=== PATIENT | male | born 1950 | race Caucasian/White ===

== ENCOUNTER 2021-08-19 17:17 | Inpatient (IN) | payer MEDICARE, MEDICAID, SELFPAY ==
[2021-08-19 17:31] VITALS: BP 113/75; PULSE 86; RESP 18; TEMP 36.1; O2SAT 96
[2021-08-19 20:20] VITALS: BP 122/77; PULSE 80; RESP 18; TEMP 36.1; O2SAT 94
[2021-08-19] MEDS: Fluticasone/Salmeterol 232-14 Inhaler 1 PUFF INHALATION (20:44)
[2021-08-19] MEDS: Insulin Glargine-YFGN 100 UNIT/ML Pen 10 UNIT SC (20:45)
[2021-08-19 20:46] VITALS: BP 122/77; PULSE 80
[2021-08-19] MEDS: Metoprolol Tartrate 50 MG Tablet PO (20:46)
[2021-08-19] MEDS: Atorvastatin Calcium 80 MG Tablet PO (20:46)
[2021-08-19] MEDS: buPROPion (SR) 150 MG Tablet.SA PO (20:47)
[2021-08-19 20:56] LABS: Bedside Glucose 140 mg/dL (74-106)
[2021-08-19 23:23] LABS: Mucous, Urine 0 SEEN /hpf (<or=2+); Squamous Epithelial Cells - UA 0 SEEN /hpf (0-5)
[2021-08-20] VITALS (9 sets, daily range): BP systolic 86–132; BP diastolic 50–83; PULSE 64–86; RESP 16–18; TEMP 36.4–36.7; O2SAT 95–98
[2021-08-20 00:08] LABS: Color, Urine Red (Yellow); Glucose, Dipstick 50 mg/dl (Normal); Ketone-Dipstick Negative (Negative); Leukocyte Esterase-Dipstick 100 /ul (Negative); Nitrite-Dipstick Negative (Negative); Occult Blood-Urine 250 /ul (Negative); Protein-Dipstick 500 mg/dl (Negative); Urine Bilirubin Dipstick Negative (Negative); Urine Clarity Turbid (Clear); Urine Urobilinogen Normal (Normal)
[2021-08-20 00:39] LABS: Bacteria 1+ /hpf (None Seen); Hyaline Cast 0-5 SEEN /lpf (0-5); Red Blood Cells-Urine > 100 SEEN /hpf (0-5); White Blood Cells 5-10 SEEN /hpf (0-5)
--- NOTE | 2021-08-20 01:15 | NURSING ---
Herad a noise, pt found on the floor. Pt said he didnt know why. ASked if he was reaching for the water at bedside. Pt said yes. Asked if he hit his head he said yes. no injury noted. Pt bed low with 2 side rails up. Pt took off his pa alarm. PT with no physical injuries noted but did have a loose bm in his diaper. vital sign pulse 64. pulse ox 96 on ra. resp 18. bp 132/83. Pt lifted up with asst of 2. bath given. dr yomi oglesby
[2021-08-20] MEDS: Menthol/Lanolin/Calamine/Znox 113 GM Tube 1 APPLIC TOPICAL ×3 (01:31→20:51)
--- NOTE | 2021-08-20 01:44 | CT_ITS ---
EXAM: CT HEAD WITHOUT INTRAVENOUS CONTRAST CLINICAL INDICATION: Fall on antiplt therapy TECHNIQUE: Multiple axial images were obtained of the head without intravenous contrast. This CT exam was performed using one or more of the following dose reduction techniques: automated exposure control, adjustment of the mA and/or kV according to patient size, and/or use of iterative reconstruction technique. This report was created using [employer] report generation technology. RADIATION DOSE: CTDIvol = 44.99 mGy, DLP = 846.73 mGy-cm. COMPARISON: None. FINDINGS: BRAIN AND EXTRA-AXIAL SPACES: Moderate generalized atrophy. Moderate low density bilaterally in the deep white matter. Subacute infarct left parietal lobe. There is high density within the sulci in this region that likely represents petechial hemorrhage along the cortex and not subarachnoid hemorrhage. No intracranial mass or mass effect. Posterior fossa structures are unremarkable. No hydrocephalus. Basal cisterns are patent. BONES/JOINTS: Unremarkable. No discrete lytic or blastic abnormalities. SINUSES: Unremarkable as visualized. Clear. MASTOID AIR CELLS: Unremarkable. Clear. ORBITS: Visualized globes, extraocular muscles, optic nerves and retrobulbar fat appear unremarkable. CT/Brain/Head without Contrast IMPRESSION: 1. Subacute infarct left parietal cortex with some petechial hemorrhage within the cortex but no extra-axial hemorrhage. 2. Moderate generalized atrophy. Moderate low density bilaterally in the deep white matter. This likely represents small vessel ischemic changes in the deep white matter. 3. No specific acute intracranial abnormality. Electronically Signed: Rj Abdul MD at 2:54 EDT ,
--- NOTE | 2021-08-20 01:45 | PCM.HOSP.N ---
Hospitalist Note Patient with unwitnessed mechanical fall, off the of toilet with reported hit to the head but no LOC and patient notes he feels well otherwise but given recent admission with CVA on asa, plavix with unwitnessed head trauma will obtain CT head without contrast now.
--- NOTE | 2021-08-20 01:50 | NURSING ---
process supervisor janell notified
--- NOTE | 2021-08-20 02:10 | NURSING ---
Pt back from [facility], [facility]. Pt changed to a bed with 4 side rails but we only put 3 side rails up. Pa on again. Red fall sign put up
--- NOTE | 2021-08-20 07:03 | NURSING ---
zaynab notified of pt falling
--- NOTE | 2021-08-20 09:00 | NURSING ---
Patient very pleasant, at times follows commands but needs max cues for everything. Loera in place, incontinent of stool and he does not recognize when he has a bowel movement. x2 max assist stand pivot, right side severe weakness noted.
[2021-08-20] MEDS: Fluticasone/Salmeterol 232-14 Inhaler 1 PUFF INHALATION ×2 (09:59→20:57)
[2021-08-20] MEDS: Furosemide 40 MG Tablet PO (10:00)
[2021-08-20] MEDS: Aspirin E.C. 81 MG Tablet PO (10:00)
[2021-08-20] MEDS: Metoprolol Tartrate 50 MG Tablet PO ×2 (10:01→20:57)
[2021-08-20] MEDS: buPROPion (SR) 150 MG Tablet.SA PO (10:01)
[2021-08-20] MEDS: Clopidogrel Bisulfate 75 MG Tablet PO (10:01)
[2021-08-20] MEDS: Lisinopril 5 MG Tablet PO (10:01)
[2021-08-20] MEDS: Pantoprazole Sodium 20 MG Tablet PO (10:01)
[2021-08-20] MEDS: Gabapentin 300 MG Capsule PO (10:06)
[2021-08-20] MEDS: Umeclidinium Bromide Inhaler 1 PUFF INHALATION (10:07)
--- NOTE | 2021-08-20 10:23 | CASEMGMT ---
Social Work Pt unable to complete initial assessment or BIMS. Left message with . Janey Mejia, JAVA J2EE SOFTWARE ENGINEER STRIPPING MACHINE OPERATOR
[2021-08-20 10:33] LABS: Absolute Lymphocyte Count 1.77 X10^3/uL (0.83-4.51); Absolute Neutrophil Count 10.6 X10^3/uL (2.0-7.7); Basophil# 0.03 X10^3/uL; Basophil% 0.2 % (0-1); Eosinophil# 0.28 X10^3/uL; Hematocrit 48.4 % (40-54); Hemoglobin 15.5 g/dL (13.0-16.5); Lymphocyte # 1.77 X10^3/ul (0.83-4.51); Lymphocyte % 12.7 % (19-41); Mean Corpuscular Hgb 28.5 pg (27.0-32.0); Mean Corpuscular Volume 89.1 fL (80-94); Mean Platelet Vol. 12.3 fl (6.2-12.0); Monocyte# 1.19 X10^3/uL; Monocyte% 8.6 % (0-10); NRBC Flagged by Analyzer 0 % (0-5); Neutrophil # 10.56 X10^3/uL (2.7-7.7); Platelet Count 198 K/mm3 (150-450); RBC Distribution Width CV 14.6 % (11.6-14.6); RBC Distribution Width SD 47.5 fl (35.1-43.9); Red Blood Count 5.43 M/mm3 (4.6-6.2); White Blood Count 13.9 K/mm3 (4.4-11.0)
[2021-08-20 11:06] LABS: Bedside Glucose 182 mg/dL (74-106)
[2021-08-20 11:58] LABS: ALB/GLOB Ratio 0.4 RATIO (0.9-2.4); AST(SGOT) 30 U/L (15-37); Alanine Aminotransfer ALT/SGPT 35 U/L (16-61); Albumin, Serum 2.2 g/dL (3.2-5.0); Alkaline Phosphatase 117 U/L (45-117); Anion Gap 5 (5-15); BUN 30 mg/dL (7-18); BUN/Creat Ratio 22.6 RATIO (10-20); Calcium,Total 8.6 mg/dL (8.5-10.1); Chloride 99 mmol/L (98-107); Creatinine, Serum 1.33 mg/dL (0.70-1.30); EST Glomerular Filtration Rate 56 mL/min (>60); Est Glom Filt Rate - Afr Amer 68 mL/min (>60); Estimated Creatinine Clearance 50.01 ml/min; Globulin 5.1 g/dL (2.2-4.2); Glucose 197 mg/dL (74-106); Phosphorus 2.2 mg/dL (2.5-4.9); Potassium 3.9 mmol/L (3.5-5.1); Protein, Total 7.3 g/dL (6.4-8.2); Sodium Level 132 mmol/L (136-145)
--- NOTE | 2021-08-20 12:09 | EX.PCM.HP.RE ---
[facility] - General General Date of Admission: 08/19/21 HPI Narrative SUDHIR BELL, is a 70 YO M with a PMH of CAD, remote HI, hx of CABG/PCI with multiple stents, tobacco dependence, HTN, HLD, DM II, COPD and Depression who had sudden onset of R side weakness and slurred speech on 08/09/21 while walking in a parking lot. He was taken to [facility] ED and at arrival was noted to be in AF with a BP of 170/109. A noncontrast CT brain revealed no acute findings. CTA findings were consistent with a left M2 branch occlusion. TPA was administered and the patient was transferred to [facility] for mechanical thrombectomy/TNK. Following TPA and thrombectomy he had residual R side weakness and expressive aphasia. CT post TPA and TNK showed petechial hemorrhage in the area of the stroke. His admission to [facility] was complicated by a E. Coli UTI and he reportedly received a full course of antibiotics. Other complications included ARF (seen by Dr. Summers/creat peaked at 2.43), urine retention, pulmonary edema and newly diagnosed CM with an EF of 34%. On ECHO he also has severe posterior wall hypokinesis and mild LAE. NO PFO. 1-2+ MR. While at [facility] he was seen by PT/OT/ST and a recommendation was made for acute rehab. He was transferred to [facility] acute rehab on 08/19/21 for 3 hours of therapy daily to restore function/independence at or near his level prior to recent stroke. NIH at [place] for [facility] was 10. He can start anticoagulation for AF 2-3 weeks from the date of the stroke which would be somewhere between the 9th and the 16th.......if the CT scan is stable. TC 100 HDL 33 LDL 52 HGBA1C 7.4 I spoke with his who tells me that he has been losing wt and she also told me that they found something in his neck on XRAY that they want him to follow up on? [place] and there are 2 small steps to get into the house with no HR's. They have a Tub/shower and no grab bars. There is a basement and there son is currently staying in the basement. He smokes 2 PPD of cigarettes and has been trying to quit by smoking 1/2 of a cigarette and then putting it down. He does not drink. He sees a cro at [facility] and she does not know the name. He sees a SPICE FUMIGATOR at the health dept for primary care. All lab from today was personally reviewed. White blood cell count is elevated at 13.9. Hemoglobin is 15.5 and the MCV and MCH are within normal limits. Platelets are normal. Sodium is low at 132 and the potassium is 3.9. The BUN is 30 and the creatinine is 1.33 (it was 1.39 at [facility] ED) which is above the creat (1.05 when he entered [facility] on 08/09/21). Phosphorus is low at 2.2. EKG had a prolonged QTC in the ED. All records from [facility] ED were reviewed as were the records from [facility]. On the CTA from ED there was mention of a R parotid nodule measuring 1.3 cm. There were also BL pleural effusions and there was also mild mediastinal and R neck base adenopathy. told the ER doc that Sudhir had been SOB when lying down for the preceding 2 weeks and sometimes had to get up from bed. He had no swelling of his legs in the ED but, CXR was consistent with pulmonary edema. He has received COVID vaccine and had 1 booster. [facility] Medical History (Updated 08/20/21 @ 15:[address] Melissa Mcarthur DO) Atrial fibrillation Deafness in left ear Deafness in right ear Diabetes GERD (gastroesophageal reflux disease) Hypertension Myocardial infarct Smoker Stroke/cerebrovascular accident Home Medications aspirin 81 mg PO DAILY 08/19/21 [History Last Taken 08/19/21 08:30] furosemide 40 mg PO DAILY 08/19/21 [History Last Taken Unknown] gabapentin [Neurontin] 300 mg PO DAILY 08/19/21 [History Last Taken Unknown] Allergy/AdvReac Type Severity Reaction Status Date / Time heparin Allergy Thrombocyto Verified 08/20/21 03:14 penia Surgical History (Updated 08/20/21 @ 14:[address] Melissa Mcarthur DO) History of coronary artery bypass graft History of coronary artery stent placement History of transmetatarsal amputation of right foot Hx of total hip arthroplasty Social History (Updated 08/20/21 @ 15:[address] Melissa Mcarthur DO) adopted: No household members: family and other details: He lives with his Padmini and 1 of his sons (lives in basement) housing: other details: Ranch with a basement. 2 steps to enter the house and no HR. number of children: 6 current occupational status: retired Smoking Status: Heavy Smoker (>10/day) Tobacco: How many years used: 63 how long ago did patient quit smoking: did not quit and smoking 2 PPD per counseling given: provider counseling alcohol intake: current details: does not drink now but has in the past substance use type: does not use during the past year weight has: other details: Has been losing weight per his ROS ROS Narrative Extremely limited due to aphasia. Denies pain and said yes when I asked if he slept well last night. Appetite is soso. Denied problems with urination prior to stroke. Admits to losing wt. Denies SOB and CP. Review of Systems ROS Unobtainable: due to encephalopathy Vital Signs Vital Signs Vital Signs: 08/19/21 17:31 08/19/21 20:20 08/19/21 20:22 Temperature 96.9 F L 97 F L Temperature Source Temporal Temporal Pulse Rate 86 80 Respiratory Rate 18 18 Respiratory Effort Normal Non-Labored Respiratory Depth Normal Respiratory Pattern Normal Blood Pressure 113/75 122/77 H Blood Pressure Mean 87 92 Blood Pressure Source Monitor Monitor Blood Pressure Position Semi-Fowlers Semi-Fowlers Blood Pressure Location Left Arm Left Arm Pulse Ox 96 94 Oxygen Delivery Method Room Air Room Air Room Air 08/19/21 20:46 08/20/21 01:25 08/20/21 03:47 Temperature 97.6 F L Temperature Source Temporal Pulse Rate 80 64 74 Respiratory Rate 18 17 Respiratory Effort Respiratory Depth Respiratory Pattern Blood Pressure 122/77 H 132/83 H 122/70 H Blood Pressure Mean 99 87 Blood Pressure Source Monitor Monitor Blood Pressure Position Supine Semi-Fowlers Blood Pressure Location Right Arm Left Arm Pulse Ox 96 98 Oxygen Delivery Method Room Air Room Air 08/20/21 08:30 08/20/21 08:58 08/20/21 10:01 Temperature 98.1 F Temperature Source Oral Pulse Rate 86 85 Respiratory Rate 16 Respiratory Effort Respiratory Depth Respiratory Pattern Blood Pressure 117/79 Blood Pressure Mean 91 Blood Pressure Source Monitor Blood Pressure Position Semi-Fowlers Blood Pressure Location Left Arm Pulse Ox 96 96 Oxygen Delivery Method Room Air Room Air Weight Weight: 153 lb 0.013 oz Indicators for Scoring Admitted with or Primary Diagnosis of CVA/Stroke: Yes Hx of CVA/Stroke: Yes Modified Thony Score MRS Score at time of Evaluation: 5-Severe disability NIHSS NIHSS 1a. Level of Consciousness: Alert; keenly responsive 1b. LOC Questions: Answers neither question correctly. 1c. LOC Commands: Performs one task correctly. 2. Best Gaze: Normal 3. Visual: Complete hemianopia 4. Facial Palsy: Normal symmetrical movements 5a. Left Arm: No drift; arm holds 90 (or 45) degrees for full 10 seconds 5b. Right Arm: No effort against gravity; arm falls 6a. Left Leg: No drift; leg holds 30-degree position for full 5 seconds 6b. Right Leg: Drift; leg falls by the end of 5-seconds, but does not hit bed 7. Limb Ataxia: Present in 1 limb 8. Sensory: Severe to total sensory loss; 9. Best Language: Severe aphasia; 11. Extinction and Inattention: Profound kwabena-inattention or extinction to more than one modality; Total: 16 Stroke Questions Stroke Team Activated: No (He is currently in a rehab unit for rehabilitation after CVA) Physical Exam Const alert and no apparent distress Constitutional Narrative: thin with muscle and fat loss - has severe protein and calorie malnutrition per osteology teacher assessment General Appearance: cooperative HEENT normocephalic Mouth: dry mucous membranes Eyes PERRL Eyes Narrative: He is able to follow my finger with horizontal gaze but can not deviate left the whole way to the lateral canthus Neck no lymphadenopathy, supple and no carotid bruits Neck Narrative: A little stiff and decreased cervical flexion but, no rigidity. General: trachea midline Chest Chest: symmetrical chest wall rise Resp normal respiratory effort Resp Narrative: Diminished throughout, no accessory muscle use. Not tachypneic. Cardio no rub and no gallops Cardio Narrative: Irreg irreg with adequate rate control. He has a systolic MM at the apex 2/6. GI normal to inspection, nondistended, normoactive bowel sounds, soft to palpation and non-tender; Negative for hepatosplenomegaly GI Narrative: No guarding with palpation Narrative: urine is cloudy and there is a urine culture pending Bladder / Kidney Exam: catheter in place urethral and no CVA tenderness Extremity no calf tenderness and no pedal edema Extremity Narrative: decreased pedal pulses BL. No clubbing General Extremity: Negative for cyanosis Peripheral Pulses: Yes radial pulses present Skin no wounds Skin Narrative: scattered bruises, no openings in the skin General Skin Exam: no breakdown Rashes: no rashes Neuro Neuro Narrative: please see NIHSS R side neglect, R hemiparesis arm> leg, severe expressive/receptive aphasia Psych Psych Narrative: tearful at the end of my visit....very frustrated not being able to express himself. Results Medical Records Data Medical Nutrition Assessment Dietitian: Malnutrition Criteria Met Start: 08/20/21 10:19 Freq: Status: Active Protocol: Document 08/20/21 10:23 [facility] (Rec: 08/20/21 10:24 [facility] [id number]) Nutrition Malnutrition Evidence of Malnutrition Exists Yes Malnutrition (severe): Acute Illness/Injury Evidenced By Suboptimal Energy Intake ( Moderate),Weight Loss (Severe) ,Physical Changes (Moderate) Clinical Problem Acute Disease or Injury Related Malnutrition Etiology severe malnutrition related to CVA making it difficult to consume adequate nutrition to meet est nutritional needs Signs/Symptoms as evidenced by decreased appetite since stroke, need for mech altered food consistencies, 9.6% wt loss < 14 days and fat/muscle loss ( clavicle, acromion process, buccal/orbital/temporal areas, upper arms). Status Active Problem Recommendation Dietitian Recommendations/Changes Will continue liberal regular diet w/ consistency per INSPECTOR TYPE - d/t pt w/ signs/symptoms of malnutrition. Will provide magic cup or ensure pudding w/ lunch and dinner for increased nutrition if consumed Will provide 120 ml glucerna shake w/ medpass 4x/day for increased nutrition if consumed. Lab / Micro Data Result Diagrams: 08/20/21 10:05 08/20/21 11:30 Labs: Laboratory Results - last 24 hr 08/19/21 20:41: POC Glucose 140 H 08/19/21 23:10: Urine Color Red, Urine Clarity Turbid, Urine pH 6.0, Ur Specific [place] 1.020, Urine Protein 500 H, Urine Glucose (UA) 50 H, Urine Ketones Negative, Urine Occult Blood 250 H, Urine Nitrite Negative, Urine Bilirubin Negative, Urine Urobilinogen Normal, Ur Leukocyte Esterase 100 H, Urine RBC > 100 SEEN, Urine WBC 5-10 SEEN, Ur Squamous Epith Cells 0 SEEN, Urine Bacteria 1+, Hyaline Casts 0-5 SEEN, Urine Mucus 0 SEEN 08/20/21 10:05: WBC 13.9 H, RBC 5.43, Hgb 15.5, Hct 48.4, MCV 89.1, MCH 28.5, MCHC 32.0, RDW Std Deviation 47.5 H, RDW Coeff of Toney 14.6, Plt Count 198, MPV 12.3 H, Immature Gran % (Auto) 0.500, Neut % (Auto) 76.0 H, Lymph % (Auto) 12.7 L, Humphreys % (Auto) 8.6, Eos % (Auto) 2.0, Baso % (Auto) 0.2, Absolute Neuts (auto) 10.6 H, Absolute Lymphs (auto) 1.77, Nucleated RBC % 0 08/20/21 10:05: Sodium Cancelled, Potassium Cancelled, Chloride Cancelled, Carbon Dioxide Cancelled, Anion Gap Cancelled, BUN Cancelled, Creatinine Cancelled, Estim Creat Clear Calc Cancelled, Est GFR (MDRD) Af Amer Cancelled, Est GFR (MDRD) Non-Af Cancelled, BUN/Creatinine Ratio Cancelled, Glucose Cancelled, Calcium Cancelled, Phosphorus Cancelled, Magnesium Cancelled, Total Bilirubin Cancelled, AST Cancelled, ALT Cancelled, Alkaline Phosphatase Cancelled, Total Protein Cancelled, Albumin Cancelled, Globulin Cancelled, Albumin/Globulin Ratio Cancelled 08/20/21 10:59: POC Glucose 182 H 08/20/21 11:30: Sodium 132 L, Potassium 3.9, Chloride 99, Carbon Dioxide 28.0, Anion Gap 5, BUN 30 H, Creatinine 1.33 H, Estim Creat Clear Calc 50.01, Est GFR (MDRD) Af Amer 68, Est GFR (MDRD) Non-Af 56 L, BUN/Creatinine Ratio 22.6 H, Glucose 197 H, Calcium 8.6, Phosphorus 2.2 L, Magnesium 2.0, Total Bilirubin 1.10 H, AST 30, ALT 35, Alkaline Phosphatase 117, Total Protein 7.3, Albumin 2.2 L, Globulin 5.1 H, Albumin/Globulin Ratio 0.4 L Radiology Impression Brain CT 08/20/21 01:44 IMPRESSION: 1. Subacute infarct left parietal cortex with some petechial hemorrhage within the cortex but no extra-axial hemorrhage. 2. Moderate generalized atrophy. Moderate low density bilaterally in the deep white matter. This likely represents small vessel ischemic changes in the deep white matter. 3. No specific acute intracranial abnormality. Electronically Signed: Rj Abdul MD at 2:54 EDT , Assessment & Plan Assessment/Plan (1) Debility: (2) Arterial ischemic stroke, MCA, left, acute: (3) Petechial hemorrhage: (4) Acute right hemiparesis: (5) Dysphagia: QUALIFIERS: Dysphagia type: oropharyngeal phase Qualified Code(s): R13.12 - Dysphagia, oropharyngeal phase (6) Aphasia: (7) Kwabena-neglect of right side: (8) Right-sided visual neglect: (9) Severe protein-calorie malnutrition: (10) Atrial fibrillation: QUALIFIERS: Atrial fibrillation type: unspecified Qualified Code(s): I48.91 - Unspecified atrial fibrillation (11) Cardiomyopathy: QUALIFIERS: Cardiomyopathy type: unspecified Qualified Code(s): I42.9 - Cardiomyopathy, unspecified (12) COPD (chronic obstructive pulmonary disease): QUALIFIERS: COPD type: unspecified COPD Qualified Code(s): J44.9 - Chronic obstructive pulmonary disease, unspecified (13) CAD (coronary artery disease): QUALIFIERS: Coronary Disease-Associated Artery/Lesion type: [place] artery [place] vs. transplanted heart: [place] heart Associated angina: without angina Qualified Code(s): I25.10 - Atherosclerotic heart disease of [place] coronary artery without angina pectoris (14) Diabetes: QUALIFIERS: Diabetes mellitus type: type 2 Diabetes mellitus exterminator termite insulin use: with alf use Diabetes mellitus complication status: with circulatory complication (15) GERD (gastroesophageal reflux disease): QUALIFIERS: Esophagitis presence: esophagitis presence not specified Qualified Code(s): K21.9 - Gastro-esophageal reflux disease without esophagitis (16) Hypertension: QUALIFIERS: Hypertension type: primary hypertension Qualified Code(s): I10 - Essential (primary) hypertension (17) Hypophosphatemia: (18) Weight loss: PLAN: PLAN PT for gait stability OT for ADL's ST for evaluation Analgesics as needed Bowel protocol Fall precautions Assess for Anxiety/Depression - He is currently on Wellbutrin SR 150 BID. This antidepressant is know to decrease appetite, increase anxiety and it can lower seizure threshold. Will change to Wellbutrin XL 150 daily and taper to 75 in a few days. Start Remeron at HS GI prophylaxis with Protonix DVT prophylaxis with TEDS and SCD's Follow up with PCP, neurology, cardiology following DC from [facility] Rehab. Will need to have a closer look at the nodule in the R parotid and maybe a FNA. AM lab including CMP, CBC, Mag and Phos - all personally reviewed. Smoking cessation counselling given. Daily weights. Get a PA and Lateral CXR and a BNP Supplement phosphorus Monitor the sodium and creat closely and treat hyponatremia if less than 130. Rather than Lasix daily may be able to fluid restrict and use PRN Lasix ion light of recent ARF. check a microalbumin/creat ratio No antibiotic for now.....await the results of the urine culture - he had many more RBC's than WBC's and he has been pulling on the Loera per nursing. DC the Loera -0 if he retains will likely add Flomax to the drug regimen Check orthostatics today. Check a urine chloride He fell trying to get out of bed by himself last night. I reviewed the Night hospitalist note. The CT was stable and there were no obvious injuries. Charges/Coding Visit Charges Inpatient E&M: 60204 Init Hosp L3
--- NOTE | 2021-08-20 14:13 | REHABEVAL_ITS ---
Admission Information Primary Diagnosis:: Debility secondary to left MCA ischemic CVA with petechial hemorrhage post tPA. Severe, aphasia expressive greater than receptive, oropharyngeal dysphagia, right hemiparesis. Status Changes from Prescreening?: No changes Identified Actual Problem List:: UTI, Skin Intergrity, Cognitve Impr/Memory Loss, Depression, Alteration in Nutrition, Mobility Impaired, Self Care Deficit, Diabetes, Hyperglycemia, Alteration/ Air Exchange, Fluid Change-Dehydration and Alteration-Leisure Activ. Potential Problem List:: DVT, Bleeding, Infection, UTI, Aspiration, Falls, Skin Integrity and Depression Risk of Complications DVT: FERNANDO Hose and Sequential Compression Device Bleeding: Monitor Lab Values, Nursing to Teach Precautions for anti-coagulation therapy., Wound, if applicable, to be assessed every shift. and Stroke patients assessed for lethargy or change in status. Infection: Clinical Staff to Monitor for S/S of infection: and S/S of infection include fever, redness, warmth, etc. Urinary Tract Infection: Monitor for frequency, burning, discomfort, or incontinence. and Nursing will obtain urine sample for urinalysis and C&S when ordered. Aspiration: Clinical staff will monitor for coughing, drooling, congestion., Speech will evaluate swallowing and dsyphasia. and Nursing will monitor patient swallowing during meals. Falls: Patient will be evaluated for Fall Precautions and Patient will be placed on Fall Precautions as indicated per protocol. Skin Breakdown: Nursing will assess skin daily using assessment tool. and Nursing will place on Skin Breakdown Precautions as indicated. Pain: Clinical staff will assess patient's pain level per protocol., Medications will be given, if needed, and the pain level reassessed. and Other methods: Massage, distraction, decrease stimulus, etc. used PRN. Plan of Care Patient requires physician specializing in physical medicine and rehab oversight to provide close medical supervision of rehab issues including: Pain Management, Sleep Problems, Bowel and Bladder, Medical and co-morbidity Management, DVT prophylaxis, Rehabilitation Leadership and Coordination of treatment team Patient needs Physical Therapy: For a minimum of 1 hour and At least 5 out of 7 days Patient needs Physical Therapy to improve:: Mobility, Strengthening, Transfers, Stretching, ROM, Endurance, Stairs, Gait and Balance Patient needs Occupational Therapy: For a minimum of 1 hour and At least 5 out of 7 days Patient needs Occupational Therapy to improve ADL's incl.: Eating, Grooming, Bathing, Dressing, Toileting, Toilet transfers, Community Reintegration, Higher functioning activities, Household tasks, Adaptive Equipment, Splinting and Other activities as determined Patient requires speech therapy: For a minimum of 1 hour and At least 5 out of 7 days Patient requires speech therapy for: Swallowing, Cognition, Language Skills and Compensatory Strategies Patient requires 24/7 Rehabilitation Nursing for: Pain Issues, Identifying and preventing risk factors, Monitoring and reporting current medical conditions, Assisting with ambulation, transfer, and all ADL's, Teaching patients about disease process and medications, Family teaching, Providing safe environment, B owel and Bladder Issues, Skin integrity and Medication Management Patient needs Skirt Panel Assembler/ Case Management for: Discharge Planning, Arranging Home Equipment or Services and Family Interventions Patient needs Dietary and Nutrition Services for: Adequate Nutrition, Nutritional Supplements and Nutritional Education Goals Patient will remain: free from falls and or injury at time of discharge. Patient will perform bed mobility at: MOD I level of assist. Patient will complete transfers from bed to chair at: MOD I level of assist. Patient will ambulate: 100 feet, 50 feet and with LRD Patient will complete upper body dressing at: MOD I level of assist. Patient will complete lower body dressing at: MOD I level of assist. Patient will complete toileting at: MOD I level of assist. Patient will perform bathing at: MOD I level of assist. Patient will complete grooming at: MOD I level of assist. Patient will complete home management skills at: MOD I level of assist. Patient will achieve: - (1 curb step and 2 steps with a HR at min A to allow access to his home. ) Patient will have pain level of: of 3 or less Patient's skin will: remain intact Patient will receive: adequate nutrition. Discharge Planning Estimated Length of stay (days): 28 Anticipated D/C Destination: TBD Was Preadmission Assessment Accurate?: Yes
--- NOTE | 2021-08-20 15:15 | CHAPLAIN ---
Type of Pastoral Visit _x__ Initial Visit ___ Follow-up Visit ___ On-call Visit ___ General Patient Visit ___ Spiritual Assessment ___ Family Conference ___ Bereavement ___ Rapid Response ___ Code Blue ___ Other (describe below) Pastoral Care Referral From _x__ Patient ___ Family ___ Nurse ___ Physician ___ Store Shopper ___ Senior Marketing Data Analyst ___ Other (describe below) Sacrament/Intervention _x__ Active listening ___ Anointing ___ Restorationism ___ Bereavement ___ Communion ___ Oma exploration ___ ___ Life review _x__ Prayer ___ Reconciliation ___ Sacrament of Sick _x__ Supportive presence ___ Wedding ___ Other (describe below) Pastoral Comments patient awake and resting in bed; introduce self and role to pt; pt welcoming but with asphasia he had difficulty in communicating; gave calm presence and assurance of patience and availability for support; pt able to answer a few simple questions but could not complete thoughts or sentences; gave assurance of good care and for a return visit later; prayer accepted
--- NOTE | 2021-08-20 15:30 | EKG12_ITS ---
Test Reason : AFIB Blood Pressure : / mmHG Vent. Rate : 074 BPM Atrial Rate : 071 BPM P-R Int : 000 ms QRS Dur : 104 ms QT Int : 440 ms P-R-T Axes : 000 -29 082 degrees QTc Int : 488 ms Atrial fibrillation Septal infarct , age undetermined Inferior infarct , age undetermined Abnormal ECG No previous ECGs available Confirmed by RAINE MEDEROS, GENA ([id number]), fan mail editor JOEY REYES ([id number]) on 09/25/2021 9:16:33 AM Referred By: DOYLE Confirmed By:GENA NI MD
[2021-08-20 16:00] LABS: Bedside Glucose 273 mg/dL (74-106)
--- NOTE | 2021-08-20 16:15 | RAD_ITS ---
INDICATION: shortness of breath EXAMINATION/TECHNIQUE: X-RAY - XR Chest 2 Views COMPARISON: None. FINDINGS: LIFE-SUPPORT AND LINES: 1. Mediastinal wires are present. 2. No pneumothorax. HEART AND VESSELS: Cardiac silhouette is large. There is central vascular congestion. LUNGS AND PLEURAL SPACES: Diffuse interstitial prominence at the lung bases, sequelae of resolving interstitial edema is a consideration. No consolidation. Trace bilateral effusions. MEDIASTINUM AND HILAR REGIONS: No masses adenopathy noted. No areas of calcification. Visualized upper airway is normal in position. BONY ELEMENTS: No acute bony changes noted. Chronic deformity of the RIGHT proximal humerus appear RAD/Chest PA and Lateral IMPRESSION: 1. Postop change of prior CABG. 2. Borderline cardiomegaly mild vascular congestion noted. Mild interstitial prominence at the lung bases likely representing the sequelae of resolving interstitial edema. 3. No focal infiltrate or consolidation. Trace bilateral effusions. Electronically Signed: Thom Landeros MD at 1:27 EDT ,
[2021-08-20] MEDS: Insulin Lispro 100 UNIT/ML INSULN.PEN SC (17:27)
[2021-08-20] MEDS: Atorvastatin Calcium 80 MG Tablet PO (20:57)
[2021-08-20] MEDS: Insulin Glargine-YFGN 100 UNIT/ML Pen 10 UNIT SC (21:00)
[2021-08-20] MEDS: Mirtazapine 15 MG Tablet PO (21:03)
[2021-08-20] MEDS: Na Biphos/Potassium Phosphate PACKET 1 PACKET PO (21:03)
[2021-08-20 22:15] LABS: Bedside Glucose 191 mg/dL (74-106)
[2021-08-21 01:15] LABS: Urine Chloride 13 mmol/L (Not Establ.)
[2021-08-21] MEDS: Na Biphos/Potassium Phosphate PACKET 1 PACKET PO ×3 (05:31→21:11)
[2021-08-21 06:21] LABS: Bedside Glucose 141 mg/dL (74-106)
[2021-08-21 07:19] VITALS: BP 114/59; PULSE 78; RESP 16; TEMP 36.3; O2SAT 97
[2021-08-21 07:23] VITALS: BP 114/59; PULSE 78
[2021-08-21] MEDS: Metoprolol Tartrate 50 MG Tablet PO (07:23)
[2021-08-21] MEDS: Aspirin E.C. 81 MG Tablet PO (07:23)
[2021-08-21] MEDS: Furosemide 40 MG Tablet PO (07:23)
[2021-08-21] MEDS: Pantoprazole Sodium 20 MG Tablet PO (07:24)
[2021-08-21] MEDS: Clopidogrel Bisulfate 75 MG Tablet PO (07:24)
[2021-08-21] MEDS: Lisinopril 5 MG Tablet PO (07:25)
[2021-08-21] MEDS: Fluticasone/Salmeterol 232-14 Inhaler 1 PUFF INHALATION ×2 (07:26→21:10)
[2021-08-21] MEDS: Umeclidinium Bromide Inhaler 1 PUFF INHALATION (07:26)
[2021-08-21] MEDS: Gabapentin 300 MG Capsule PO (07:33)
[2021-08-21] MEDS: buPROPion (XL) 150 MG TABLET.XL PO (07:33)
[2021-08-21] MEDS: Acetaminophen 325 MG Tablet 650 MG PO (07:33)
[2021-08-21] MEDS: Menthol/Lanolin/Calamine/Znox 113 GM Tube 1 APPLIC TOPICAL ×2 (07:37→21:09)
[2021-08-21 11:00] LABS: Bedside Glucose 159 mg/dL (74-106)
[2021-08-21] MEDS: Glucerna Shake 120 ML LIQUID PO ×3 (11:56→21:12)
[2021-08-21] MEDS: Insulin Lispro 100 UNIT/ML INSULN.PEN SC ×2 (11:56→16:21)
--- NOTE | 2021-08-21 12:25 | PCM.PROGNOTE ---
Subjective Subjective Afebrile VSS-orthostatics were positive yesterday and the blood pressure dropped from 105/63 lying down to 86/50 standing. The heart rate increased from 72-83 however he is on a beta-ion to control the heart rate when in atrial fibrillation. Maintaining appropriate oxygen saturation on RA-95 to 97% on room air. Oral intake picked up yesterday.....he took 1500 PO and had 800 out for a fluid balance of +700. Discussed with nursing - He has urine retention since the Loera was discontinued and has had to be straight cath'd twice. Reviewed the PT/OT/ST notes Medication list reviewed. Blood sugar record was reviewed. The at bedtime blood sugar last night was 191 and he received 10 units of Lantus with no lispro coverage. FBS today is 159. All lab was personally reviewed. The microalbumin/creatinine ratio is markedly elevated at 3298. BNP is still pending. Preliminary on the urine culture from 08/19/2021 is no growth. Chest x-ray showed increased interstitial prominence in the bases possibly secondary to atelectasis/fibrosis versus resolving pulmonary edema. Denies CP, shortness of breath, palpitations, nausea/vomiting/abdominal pain, burning with urination, cephalgia. He is complaining of lightheadedness when standing. He seems to tolerate sitting without lightheadedness. Objective Data Objective Data Vital Signs: Vital Signs Temp Pulse Resp BP Pulse Ox 97.4 F L 78 16 114/59 L 97 08/21/21 07:19 08/21/21 07:23 08/21/21 07:19 08/21/21 07:23 08/21/21 07:19 Oxygen Delivery Method Room Air Weight: 152 lb 1.903 oz Intake & Output: Intake and Output for Last 24 Hours 08/19/21 08/20/21 08/21/21 23:59 23:59 23:59 Intake Total 360 / 360 1500 / 1500 470 / 470 Output Total 350 / 350 800 / 800 1075 / 1075 Balance 700 / 700 -605 / -605 Medical Nutrition Assessment Dietitian: Malnutrition Criteria Met Start: 08/20/21 10:19 Freq: Status: Active Protocol: Document 08/20/21 10:23 ESPERANZA (Rec: 08/20/21 10:24 ESPERANZA [id number]) Nutrition Malnutrition Evidence of Malnutrition Exists Yes Malnutrition (severe): Acute Illness/Injury Evidenced By Suboptimal Energy Intake ( Moderate),Weight Loss (Severe) ,Physical Changes (Moderate) Clinical Problem Acute Disease or Injury Related Malnutrition Etiology severe malnutrition related to CVA making it difficult to consume adequate nutrition to meet est nutritional needs Signs/Symptoms as evidenced by decreased appetite since stroke, need for mech altered food consistencies, 9.6% wt loss < 14 days and fat/muscle loss ( clavicle, acromion process, buccal/orbital/temporal areas, upper arms). Status Active Problem Recommendation Dietitian Recommendations/Changes Will continue liberal regular diet w/ consistency per BRUSH MATERIAL PREPARER - d/t pt w/ signs/symptoms of malnutrition. Will provide magic cup or ensure pudding w/ lunch and dinner for increased nutrition if consumed Will provide 120 ml glucerna shake w/ medpass 4x/day for increased nutrition if consumed. Lab / Micro Data Result Diagrams: 08/20/21 10:05 08/22/21 05:40 Labs: Laboratory Results - last 24 hr 08/20/21 15:58: POC Glucose 273 H 08/20/21 21:00: POC Glucose 191 H 08/21/21 01:03: Ur Random Microalbumin 2180.0, Urine Creatinine 66.10, Microalb/Creat Ratio 3298.0 H 08/21/21 01:03: Urine Chloride 13 08/21/21 06:13: POC Glucose 141 H 08/21/21 10:57: POC Glucose 159 H Micro: Microbiology 08/19/21 23:10 Urine Catheter - Catheter Urine Culture - Preliminary Culture exhibits no growth. Radiography Diagnostic Testing: Radiology Impression Chest X-Ray 08/20/21 16:15 IMPRESSION: 1. Postop change of prior CABG. 2. Borderline cardiomegaly mild vascular congestion noted. Mild interstitial prominence at the lung bases likely representing the sequelae of resolving interstitial edema. 3. No focal infiltrate or consolidation. Trace bilateral effusions. Electronically Signed: Thom Landeros MD at 1:27 EDT , Physical Exam Const alert Constitutional Narrative: Remains severely aphasic, expressive greater than receptive. HEENT HEENT Narrative: Dry mucous membranes Resp Resp Narrative: He is not tachypneic and has no accessory muscle use. He does use pursed lip breathing. Lungs are diminished throughout with no wheezes and no crackles after a few breaths. He is not coughing. Cardio Cardio Narrative: Remains in atrial fibrillation with a controlled ventricular response. No gallop. GI normal to inspection, nondistended, normoactive bowel sounds, soft to palpation and non-tender Extremity Extremity Narrative: No peripheral edema at all. Skin Skin Narrative: Skin is dry and it does tent. Assessment & Plan Assessment/Plan (1) Arterial ischemic stroke, MCA, left, acute: PLAN: Continue aspirin 81 mg p.o. daily and Plavix 75 mg daily Continue high intensity statin/atorvastatin [address] brain next Friday or Friday and if unchanged from previous study will start anticoagulation Continue therapy - unclear at this time if he will be able to DC home from rehab or will need and SNF (2) Petechial hemorrhage: PLAN: Petechial hemorrhage post TPA and then TNK with thrombectomy. Anticoagulation currently on hold until 2-3 weeks post stroke per neurology recommendation. Repeat a NC CTB early next week and if there is no increase in petechial hemorrhage will start anticoagulation with a NOAC. He has no significant valvular heart disease and so can use a NOAC. (3) Atrial fibrillation: QUALIFIERS: Atrial fibrillation type: unspecified Qualified Code(s): I48.91 - Unspecified atrial fibrillation PLAN: Currently rate controlled. He has orthostatic hypotension and I suspect he may have autonomic insufficiency related to long standing DM II. He is currently on Metoprolol for rate control. Will consult cardiology to help with management of AF and also CM with a 34% EF. Could we consider using amiodarone to help with HR control and decrease the dose of the Beta ion to help with the orthostatic hypotension. (4) Cardiomyopathy: QUALIFIERS: Cardiomyopathy type: unspecified Qualified Code(s): I42.9 - Cardiomyopathy, unspecified PLAN: Etiology of the CM - tachycardia induced vs due to ischemic heart disease? From the hx it sounds as though he had AF RVR for 2 weeks prior to the stroke because he developed orthopnea which he had not had in the past. The ECHO from [facility] showed a very hypokinetic posterior wall when compared to the rest of the heart. (5) Severe protein-calorie malnutrition: PLAN: Continue the supplements Continue the Remeron to help stimulate his appetite. I am concerned about his wt loss.......is this related to trouble swallowing/depression/occult malignancy? (6) Dysphagia: QUALIFIERS: Dysphagia type: oropharyngeal phase Qualified Code(s): R13.12 - Dysphagia, oropharyngeal phase PLAN: He is going for a [facility] with ST tomorrow. (7) Aphasia: (8) Diabetes: QUALIFIERS: Diabetes mellitus complication status: with circulatory complication Diabetes mellitus manager long term care insulin use: with manager long term care use Diabetes mellitus type: type 2 PLAN: Continue to adjust Insulin as needed. Do not know if he is a type II or a type 1.5? Will talk with his family. (9) Hypophosphatemia: PLAN: He is on a supplement. Refeeding? Recheck the phos in the AM. (10) Orthostatic hypotension: PLAN: Decrease the Lisinopril to 2.5 mg daily. Hesitate to start Flomax or Proscar due to the orthostasis as these medications would like make the orthostasis worse and we need to maintain good perfusion to the brain in light of recent strokes. Will check a PSA in the AM. Continue straight cath as needed for residual > 250. Avoid getting him dehydrated - daily weights and I&O's ordered. (11) Urine retention: (12) Diabetic nephropathy with proteinuria: PLAN: Recently had acute renal failure and saw Dr. Summers while at [facility]. I suspect his baseline is somewhere between 1.1 [address] Summers's consult from [facility]. CREAT is consistent with stage 3a CRF but, the Creat clearance is 50. Avoid nephrotoxic agents and dehydration. Charges/Coding Visit Charges Inpatient E&M: 33802 Subs Hosp L2
[2021-08-21 13:06] LABS: BNP,B-Type NATRIURETIC PEPTIDE 562.6 pg/mL (0-100)
--- NOTE | 2021-08-21 15:36 | CASEMGMT ---
Addendum entered by Janey Mejia 08/21/21 15:45: Also discussed in detail code status. may want pt changed to DNR-CCA, but will think about it further and notify staff of changes. Original Note: Social Work Contacted again to complete assessment. Spoke with at length exploring pt's hx. Pt was independent, living at home with prior. Adult son living in finished basement, but he works two jobs and essentially only home/off work on Sundays. does not typically drive; pt drove. lives in [place] (about an hour away) so she has been staying with pt's brother, Nicko, in [place] for a shorter commute. explained she is petite and had kidney surgery last year, thus is weak and cannot physically assist pt. The goal is for pt to return close to [place] to go home. If not, agreeable for pt to DC to a SNF in [facility]. SW to compose a list with Medicare data that are in-network with insurance to provide to . Explained [facility] insurance with [employer] 08/24 and continued stay is not guaranteed with each review. and brother will be attending Team meetings with pt. explained she has a dtr that lives in [place] and a son living in [place]. Pt has a dtr in [place], son Los that lives with them and two other sons that are estranged; they have no children together; have been for 41 years. Discussed pt's change in mood - becoming discouraged d/t impacts of stroke. Pt started pt on antidepressant. noted loss of appetite and being tearful. Provided emotional and verbal support. Educated on depression after stroke and the stroke support group. appreciative. SW to continue to follow for support and DC planning. Janey Mejia, [employer] COMPLIANCE SPECIALIST
--- NOTE | 2021-08-21 15:50 | CON.PCM.CA_ITS ---
Assessment & Plan Assessment/Plan (1) Atrial fibrillation: QUALIFIERS: Atrial fibrillation type: unspecified Qualified Code(s): I48.91 - Unspecified atrial fibrillation PLAN: At the present time he appears to remain in atrial fibrillation. His ventricular rate appears to be controlled. He is currently on antiplatelet therapy. According to the information available for review following future CT scans if there are no acute hemorrhagic issues noted he may be able to resume anticoagulation therapy. In the interim it may not be unreasonable to adjust his rate limiting therapy as needed based upon his vital sign concerns. It may not be unreasonable to consider the addition of an antiarrhythmic such as amiodarone which may assist in the long run with attempts at regaining or maintaining sinus rhythm. (2) CAD (coronary artery disease): QUALIFIERS: Coronary Disease-Associated Artery/Lesion type: [place] artery [place] vs. transplanted heart: [place] heart Associated angina: without angina Qualified Code(s): I25.10 - Atherosclerotic heart disease of [place] coronary artery without angina pectoris PLAN: He has a history of CAD. The details are unknown. An attempt will be made to contact his [place], [place] cardiovascular team to gain additional information about his coronary artery status. In the meantime he should continue risk factor modification medical therapy as deemed appropriate. It does not appear he requires additional diagnostic studies with respect to his CAD status at this time. (3) S/P CABG (coronary artery bypass graft): PLAN: The details of his CABG are unknown at this time. Again attempt was made to contact his outside cardiovascular team to gain more information about his CABG history. (4) Cardiomyopathy: QUALIFIERS: Cardiomyopathy type: unspecified Qualified Code(s): I42.9 - Cardiomyopathy, unspecified PLAN: According to the aforementioned echocardiogram he has what appears to be a cardiomyopathy-presumably ischemic mediated. It is unclear as to whether or not he has been in atrial fibrillation with an elevated response for any period of time that may also contribute to this and a tachycardic mediated way. At the moment he does not appear to have ongoing symptoms of acute CHF or pulmonary edema. Thus he will continue medical management. An attempt will be made to retrieve previous outside cardiovascular records for comparison purposes and continuity of care. Over time it would be reasonable to consider a follow-up echocardiogram to monitor his left ventricular wall motion and systolic function. (5) HLD (hyperlipidemia): PLAN: He should continue risk factor modification medical therapy to assist with his scattered and his CV event. (6) Hypertension: QUALIFIERS: Hypertension type: primary hypertension Qualified Code(s): I10 - Essential (primary) hypertension PLAN: His blood pressure should be followed with adjustment of his medications as deemed appropriate. (7) Orthostatic hypotension: PLAN: There have been concerns of orthostasis. Its unclear whether this is related to volume related issues, medication issues, autonomic related issues, etc. From a medication standpoint adjustments may need to be made over time to try and minimize medication induced hypotension. (8) Arterial ischemic stroke, MCA, left, acute: PLAN: He will continue ration care per the inpatient physical medicine and rehabilitation team. Addt'l Comments The patient's case was discussed and reviewed with Dr. Mcarthur. This note was generated using a voice recognition system and there may be incorrect words, spelling or punctuation that were not noted when reviewing the office note prior to saving. HPI Consult Data Date of Consult: 08/21/21 HPI Narrative HPI Narrative: SUDHIR BELL, is a 70 year old white male who presents for cardiovascular consultation based upon concerns of findings of atrial fibrillation in the setting of a recent CVA requiring tPA and thrombectomy superimposed upon a history of hyperlipidemia, hypertension, CAD, and CABG. The patient was recently evaluated at an outside institution on 08-09-2021 for findings compatible with an acute CVA. He was reported as receiving tPA. He was subsequently transported to [facility] where he underwent additional evaluation care with thrombectomy. During his evaluation at [facility] he underwent a transthoracic echocardiogram. Per the information received it appears his left ventricle was thought to demonstrate moderate dilatation with regional wall motion abnormalities with a reported LVEF of 34% along with mild left atrial enlargement and mild to moderate MR. There were no additional cardiovascular diagnostic studies available for review. He was subsequently transferred to [facility] for further inpatient rehabilitation therapy. At the present time, as best as can be elucidated from him taking into consideration the concerns of his strokelike events including aphasia, he does not appear to be experiencing any ongoing chest discomfort suspicious for angina pectoris. There is been no report of acute CHF or pulmonary edema. He does not appear to be aware of his underlying atrial dysrhythmia. There has been no rep ort of near syncope or syncope. He does not appear to recall where his CABG was performed. He does appear to note that he is followed with a specialized developer in the [place], [place] area. He did have an ECG performed today. Based upon the ECG it demonstrated underlying atrial fibrillation with a controlled ventricular response with a septal GA pattern of indeterminate age cannot be excluded and an inferior GA pattern of indeterminate age cannot be excluded. Also during his stay thus far at [facility] there have been concerns of orthostasis. [facility] Medical History (Updated 08/21/21 @ 17:[address] 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 Zack Bardales MD) History of coronary artery bypass graft History of coronary artery stent placement History of transmetatarsal amputation of right foot Hx of total hip arthroplasty Social History (Updated 08/20/21 @ 15:[address] Melissa Mcarthur DO) adopted: No household members: family and other details: He lives with his Padmini and 1 of his sons (lives in basement) housing: other details: [place]. 2 steps to enter the house and no HR. number of children: 6 current occupational status: retired Smoking Status: Heavy Smoker (>10/day) Tobacco: How many years used: 62 how long ago did patient quit smoking: did not quit and smoking 2 PPD per counseling given: provider counseling alcohol intake: current details: does not drink now but has in the past substance use type: does not use during the past year weight has: other details: Has been losing weight per his ROS Constitutional Constitutional: Reports as per HPI Eyes Eyes: Reports as per HPI ENT HEENT: Reports as per HPI Cardiovascular Cardiovascular: Reports as per HPI Respiratory/Chest Respiratory/Chest: Reports as per HPI Gastrointestinal Gastrointestinal: Reports as per HPI Genitourinary Genitourinary: Reports as per HPI Musculoskeletal Musculoskeletal: Reports as per HPI Integumentary Integumentary: Reports as per HPI Neurologic Neurologic: Reports as per HPI Physical Exam Const alert, oriented x3 and no apparent distress Orientation / Consciousness: awake HEENT normocephalic, head/scalp atraumatic and hearing grossly normal bilaterally Eyes PERRL, EOMs intact bilaterally and conjunctivae normal Neck full ROM, supple and no JVD Resp clear to auscultation bilaterally Cardio regular rate, S1 normal heart sound and S2 normal heart sound Rhythm: abnormal rhythm irregularly irregular Heart Sounds: murmur systolic II/ soft mid apex and axilla GI normal to inspection, nondistended, normoactive bowel sounds Extremity no pedal edema Neuro oriented x3 Risk Stratification Risk Stratification Applicable: No Procedure Criteria Type of Procedure Procedure Type: Elective Elective Risks - COVID COVID Risk Discussion: The surgeon/proceduralist and patient have discussed in detail the risk of exposure to and/or potential harm posed by the COVID-19 virus with having a surgery/procedure at this time versus the risk of delaying the surgery/procedure. It is not possible to know either the risk of delaying the surgery or procedure or chance of getting an infection with perfect accuracy, but a joint decision was made between the patient and the surgeon/proceduralist to proceed at this time with the scheduled surgery/procedure as indicated on the consent form. Objective Data Vital Signs: Vital Signs Temp Pulse Resp BP Pulse Ox 97.4 F L 78 16 114/59 L 97 08/21/21 07:19 08/21/21 07:23 08/21/21 07:19 08/21/21 07:23 08/21/21 07:19 Oxygen Delivery Method Room Air Weight: 152 lb 1.903 oz Intake & Output: Intake and Output for Last 24 Hours 08/19/21 08/20/21 08/21/21 23:59 23:59 23:59 Intake Total 360 / 360 1500 / 1500 770 / 770 Output Total 350 / 350 800 / 800 1075 / 1075 Balance 700 / 700 -305 / -305 Lab / Micro Data Result Diagrams: 08/20/21 10:05 08/20/21 11:30 Labs: Laboratory Results - last 24 hr 08/20/21 10:05: B-Natriuretic Peptide 562.6 H 08/20/21 15:58: POC Glucose 273 H 08/20/21 21:00: POC Glucose 191 H 08/21/21 01:03: Ur Random Microalbumin 2180.0, Urine Creatinine 66.10, Microalb/Creat Ratio 3298.0 H 08/21/21 01:03: Urine Chloride 13 08/21/21 06:13: POC Glucose 141 H 08/21/21 10:57: POC Glucose 159 H Micro: Microbiology 08/19/21 23:10 Urine Catheter - Catheter Urine Culture - Preliminary Culture exhibits no growth. Cardiology Labs/Tests 08/20/21 10:05: B-Natriuretic Peptide 562.6 H Rhythm: EKG: ECHO: Stress Test: Cardiac Cath: PCI: CT Surgery: Holter monitor: EPS: PPM: CXR: Chest CT Scan: Radiography Diagnostic Testing: Radiology Impression Chest X-Ray 08/20/21 16:15 IMPRESSION: 1. Postop change of prior CABG. 2. Borderline cardiomegaly mild vascular congestion noted. Mild interstitial prominence at the lung bases likely representing the sequelae of resolving interstitial edema. 3. No focal infiltrate or consolidation. Trace bilateral effusions. Electronically Signed: Thom Landeros MD at 1:27 EDT ,
[2021-08-21 16:06] LABS: Bedside Glucose 199 mg/dL (74-106)
[2021-08-21 19:35] VITALS: BP 128/67; PULSE 83; RESP 18; TEMP 36.8; O2SAT 97
[2021-08-21] MEDS: Mirtazapine 15 MG Tablet PO (21:09)
[2021-08-21] MEDS: Atorvastatin Calcium 80 MG Tablet PO (21:10)
[2021-08-21 21:11] VITALS: BP 128/67; PULSE 83
[2021-08-21] MEDS: Metoprolol Tartrate 25 MG Tablet PO (21:11)
[2021-08-21 21:25] LABS: Bedside Glucose 245 mg/dL (74-106)
[2021-08-21] MEDS: Insulin Glargine-YFGN 100 UNIT/ML Pen 10 UNIT SC (21:32)
[2021-08-22] VITALS (7 sets, daily range): BP systolic 100–121; BP diastolic 61–77; PULSE 65–89; RESP 16–20; TEMP 36.2–36.6; O2SAT 95–98
[2021-08-22] MEDS: Na Biphos/Potassium Phosphate PACKET 1 PACKET PO ×3 (06:06→22:36)
[2021-08-22 06:21] LABS: Bedside Glucose 129 mg/dL (74-106)
[2021-08-22 06:55] LABS: Anion Gap 7 (5-15); BUN 25 mg/dL (7-18); BUN/Creat Ratio 18.8 RATIO (10-20); Calcium,Total 8.2 mg/dL (8.5-10.1); Chloride 101 mmol/L (98-107); Creatinine, Serum 1.33 mg/dL (0.70-1.30); EST Glomerular Filtration Rate 56 mL/min (>60); Est Glom Filt Rate - Afr Amer 68 mL/min (>60); Estimated Creatinine Clearance 49.14 ml/min; Glucose 129 mg/dL (74-106); Phosphorus 2.3 mg/dL (2.5-4.9); Potassium 4.1 mmol/L (3.5-5.1); Sodium Level 134 mmol/L (136-145)
[2021-08-22] MEDS: Furosemide 40 MG Tablet PO (08:08)
[2021-08-22] MEDS: Amiodarone 200 MG Tablet PO (08:09)
[2021-08-22] MEDS: Clopidogrel Bisulfate 75 MG Tablet PO (08:09)
[2021-08-22] MEDS: Lisinopril 2.5 MG Tablet PO (08:09)
[2021-08-22] MEDS: buPROPion (XL) 150 MG TABLET.XL PO (08:09)
[2021-08-22] MEDS: Pantoprazole Sodium 20 MG Tablet PO (08:09)
[2021-08-22] MEDS: Aspirin E.C. 81 MG Tablet PO (08:10)
[2021-08-22] MEDS: Umeclidinium Bromide Inhaler 1 PUFF INHALATION (08:10)
--- NOTE | 2021-08-22 08:10 | PCM.PN.CARD ---
Subjective Subjective The patient is awake and alert. He appears to deny any ongoing concerns of chest discomfort, difficulty breathing, or obvious palpitations. He has been working with OT/PT without any obvious adverse events. Objective Data Vital Signs: Vital Signs Temp Pulse Resp BP Pulse Ox 97.8 F 67 20 H 121/77 H 95 08/22/21 07:30 08/22/21 07:30 08/22/21 07:30 08/22/21 07:30 08/22/21 07:30 Oxygen Delivery Method Room Air Weight: 150 lb 5.684 oz Intake & Output: Intake and Output for Last 24 Hours 08/20/21 08/21/21 08/22/21 23:59 23:59 23:59 Intake Total 1500 / 1500 1450 / 1450 75 / 75 Output Total 800 / 800 1925 / 1925 550 / 550 Balance 700 / 700 -475 / -475 -475 / -475 Lab / Micro Data Result Diagrams: 08/20/21 10:05 08/22/21 05:40 Labs: Laboratory Results - last 24 hr 08/20/21 10:05: B-Natriuretic Peptide 562.6 H 08/21/21 10:57: POC Glucose 159 H 08/21/21 15:58: POC Glucose 199 H 08/21/21 21:20: POC Glucose 245 H 08/22/21 05:40: Sodium 134 L, Potassium 4.1, Chloride 101, Carbon Dioxide 26.0, Anion Gap 7, BUN 25 H, Creatinine 1.33 H, Estim Creat Clear Calc 49.14, Est GFR (MDRD) Af Amer 68, Est GFR (MDRD) Non-Af 56 L, BUN/Creatinine Ratio 18.8, Glucose 129 H, Calcium 8.2 L, Phosphorus 2.3 L, PSA Screen 11.70 H 08/22/21 06:17: POC Glucose 129 H Micro: Microbiology 08/19/21 23:10 Urine Catheter - Catheter Urine Culture - Final Culture exhibits no growth. Cardiology Labs/Tests 08/20/21 10:05: B-Natriuretic Peptide 562.6 H 08/22/21 05:40: Sodium 134 L, Potassium 4.1, Chloride 101, Carbon Dioxide 26.0, Anion Gap 7, BUN 25 H, Creatinine 1.33 H, Est GFR (MDRD) Af Amer 68, Est GFR (MDRD) Non-Af 56 L, BUN/Creatinine Ratio 18.8, Glucose 129 H, Calcium 8.2 L, Phosphorus 2.3 L ECHO: 10-14-2019: [place], [place] Per outside medical records received: A comment was made that a transthoracic echocardiogram was reported with the left ventricle having an LVEF of 35% Stress Test: 10-28-2019: Outside medical institution Myocardial perfusion study: Reported as demonstrating findings compatible with left ventricular dilatation with an LVEF of 42% Myocardial perfusion changes compatible previous myocardial injury/infarction involving portions of the inferior posterior segments, the inferolateral segments, and the apical segments Reported as negative for ongoing myocardial ischemia Cardiac Cath: Per outside medical records: Dates unknown: PCI: Her outside medical records: Dates unknown: Report of PCI's being performed in [place], [place] and somewhere in the [place] CT Surgery: Per outside medical records: Dates unknown: Report of CABG x4 (details unknown) being performed in [place], [place] Physical Exam Const alert, oriented x3 and no apparent distress Orientation / Consciousness: awake HEENT normocephalic, head/scalp atraumatic and hearing grossly normal bilaterally Eyes PERRL, EOMs intact bilaterally and conjunctivae normal Neck full ROM, supple and no JVD Resp clear to auscultation bilaterally Cardio regular rate, S1 normal heart sound and S2 normal heart sound Rhythm: abnormal rhythm irregularly irregular Heart Sounds: murmur systolic II/ soft mid apex and axilla GI normal to inspection, nondistended, normoactive bowel sounds Extremity no pedal edema Neuro oriented x3 Assessment & Plan Assessment/Plan (1) Atrial fibrillation: QUALIFIERS: Atrial fibrillation type: unspecified Qualified Code(s): I48.91 - Unspecified atrial fibrillation PLAN: At the present time he appears to remain in atrial fibrillation. His ventricular rate appears to be controlled. He is currently on antiplatelet therapy. According to the information available for review following future CT scans if there are no acute hemorrhagic issues noted he may be able to resume anticoagulation therapy. In the interim, his beta-ion dose has been decreased to assist with managing his cardiac rate and any concerns of bradycardia as well as to assist in managing any concerns of hypotension. He has been placed on low-dose amiodarone therapy which may be beneficial with respect to his underlying atrial dysrhythmia and future attempts at achieving sinus rhythm. With respect to being on antiarrhythmic therapy such as amiodarone he would need future follow-up of his hepatic studies, thyroid studies, chest x-ray, and PFTs as deemed appropriate. If he is able at some point in time to initiate anticoagulant therapy then consideration could be given at some point in time in the future as to whether or not he would be a candidate, if he does not spontaneously convert to sinus rhythm, for a synchronized biphasic DC cardioversion which based upon his previous CVA event in the setting of atrial fibrillation may also need to include RACHELLE guidance to evaluate for any obvious evidence of previous left atrial appendage thrombus that would be prohibitive, despite anticoagulant therapy, to proceed in such a manner. (2) CAD (coronary artery disease): QUALIFIERS: Coronary Disease-Associated Artery/Lesion type: [place] artery [place] vs. transplanted heart: [place] heart Associated angina: without angina Qualified Code(s): I25.10 - Atherosclerotic heart disease of [place] coronary artery without angina pectoris PLAN: He has a history of CAD. The details are unknown. His previous medical records available for review have been reviewed and his previous noninvasive studies are as noted. He will continue medical therapy as deemed appropriate. It does not appear he requires additional diagnostic studies with respect to his CAD status at this time. (3) S/P CABG (coronary artery bypass graft): PLAN: The details of his CABG are unknown at this time. His previous outside medical records comment that he received CABG x4-details unknown-in [place], [place]. (4) Cardiomyopathy: QUALIFIERS: Cardiomyopathy type: unspecified Qualified Code(s): I42.9 - Cardiomyopathy, unspecified PLAN: According to the aforementioned echocardiogram he has what appears to be a cardiomyopathy-presumably ischemic mediated. Based upon his outside medical records available for review it appears that the findings of left ventricular dilatation and diminished LV systolic function/LVEF are not necessarily new and are noted to be present in 2020. Thus, it appears there compatible with his history of CAD and nonischemic mediated cardiomyopathy At the moment he does not appear to have ongoing symptoms of acute CHF or pulmonary edema. Thus he will continue medical management. (5) HLD (hyperlipidemia): PLAN: He should continue risk factor modification medical therapy to assist with his scattered and his CV event. (6) Hypertension: QUALIFIERS: Hypertension type: primary hypertension Qualified Code(s): I10 - Essential (primary) hypertension PLAN: His blood pressure should be followed with adjustment of his medications as deemed appropriate. (7) Orthostatic hypotension: PLAN: There have been concerns of orthostasis. Its unclear whether this is related to volume related issues, medication issues, autonomic related issues, etc. From a medication standpoint adjustments may need to be made over time to try and minimize medication induced hypotension. Respect to medication changes, this may include future adjustment, depending upon his volume status, of his diuretic medications as well. (8) Arterial ischemic stroke, MCA, left, acute: PLAN: He will continue ration care per the inpatient physical medicine and rehabilitation team. Addt'l Comments Overall, from a cardiovascular standpoint, at the present time he will continue conservative medical management with adjustment of his medications/dosages based upon his clinical status, vital signs, additional objective findings, etc. with no immediate plans for additional cardiovascular diagnostic studies/intervention. He will be reassessed from a cardiovascular standpoint as needed while at [facility]. 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 Thank you for allowing me to participate in the care of your patient. Please don't hesitate to call if any issues arise. This note was generated using a voice recognition system and there may be incorrect words, spelling or punctuation that were not noted when reviewing the office note prior to saving. Procedure Criteria Type of Procedure Procedure Type: Elective Elective Risks - COVID COVID Risk Discussion: The surgeon/proceduralist and patient have discussed in detail the risk of exposure to and/or potential harm posed by the COVID-19 virus with having a surgery/procedure at this time versus the risk of delaying the surgery/procedure. It is not possible to know either the risk of delaying the surgery or procedure or chance of getting an infection with perfect accuracy, but a joint decision was made between the patient and the surgeon/proceduralist to proceed at this time with the scheduled surgery/procedure as indicated on the consent form.
[2021-08-22] MEDS: Fluticasone/Salmeterol 232-14 Inhaler 1 PUFF INHALATION ×2 (08:12→22:33)
[2021-08-22] MEDS: Metoprolol Tartrate 25 MG Tablet PO ×2 (08:12→22:36)
[2021-08-22] MEDS: Gabapentin 300 MG Capsule PO (08:16)
[2021-08-22] MEDS: Menthol/Lanolin/Calamine/Znox 113 GM Tube 1 APPLIC TOPICAL ×2 (08:23→22:38)
--- NOTE | 2021-08-22 11:00 | PN_ITS ---
Subjective Subjective Afebrile VSS - tilt was negative today however, he was not able to stand even a full minute due to lightheadedness. BP is generally better today and the lisinopril dose was decreased yesterday. Maintaining appropriate oxygen saturation on RA Oral intake is good. Fluid balance yesterday was +135. He took 75-100% of his breakfast today and ate 50-74% of his supper last night. His weight today is 150 pounds and 5.6 ounces which is down from 152 pounds and 1.9 ounces yesterday. Discussed with nursing - Still retaining urine Reviewed the PT/OT/ST notes Medication list reviewed. Dr. Bardales added amiodarone to his drug regimen to assist with rate control so we could possibly decrease the Metoprolol dose in light of orthostatic hypotension. He is tolerating the Remeron at HS with no hangover in the AM and no adverse reactions. BS record was reviewed. At bedtime blood sugar was 245 and the blood sugar prior to supper was 199 and he received 1 unit of lispro. Fasting blood sugar today was 129. There has been no hypoglycemia. I reviewed Dr. Bardales's and appreciate his input. We are waiting for requested records from his [facility]. All lab was personally reviewed. The sodium is up to 134 from 132 1 08/20/2021. Potassium is 4.1. Serum bicarb is within normal limits. The BUN is 25, down from 30 on 08/20/2021, and the creatinine is stable at 1.33. Phosphorus is up to 2.3 from 2.2 but is still low. He has had 5 of 9 scheduled doses so far. PSA is increased at 11.7. Urine chloride is low at 13. Geoffrey is c/o Left shoulder pain. He has had some mild L shoulder pain in the past but, it has increased significantly since the fall. He denies CP and also denies SOB. Expressive aphasia > receptive and he is able to follow simple commands. He is smiling more today per therapy. He has some movement in the left shoulder but nothing distally yet. He denies burning with urination. No N/V/ABD pain. He is having lightheadedness for the past few days.... ...occasionally had prior to the stroke. Objective Data Objective Data Vital Signs: Vital Signs Temp Pulse Resp BP Pulse Ox 97.8 F 81 20 H 114/66 95 08/22/21 07:30 08/22/21 10:38 08/22/21 07:30 08/22/21 10:38 08/22/21 07:30 Oxygen Delivery Method Room Air Weight: 150 lb 5.684 oz Intake & Output: Intake and Output for Last 24 Hours 08/20/21 08/21/21 08/22/21 23:59 23:59 23:59 Intake Total 1500 / 1500 1450 / 1450 555 / 555 Output Total 800 / 800 1925 / 1925 550 / 550 Balance 700 / 700 -475 / -475 5 / 5 Medical Nutrition Assessment Dietitian: Malnutrition Criteria Met Start: 08/20/21 10:19 Freq: Status: Active Protocol: Document 08/20/21 10:23 [facility] (Rec: 08/20/21 10:24 SLA [id number]) Nutrition Malnutrition Evidence of Malnutrition Exists Yes Malnutrition (severe): Acute Illness/Injury Evidenced By Suboptimal Energy Intake ( Moderate),Weight Loss (Severe) ,Physical Changes (Moderate) Clinical Problem Acute Disease or Injury Related Malnutrition Etiology severe malnutrition related to CVA making it difficult to consume adequate nutrition to meet est nutritional needs Signs/Symptoms as evidenced by decreased appetite since stroke, need for mech altered food consistencies, 9.6% wt loss < 14 days and fat/muscle loss ( clavicle, acromion process, buccal/orbital/temporal areas, upper arms). Status Active Problem Recommendation Dietitian Recommendations/Changes Will continue liberal regular diet w/ consistency per [employer] - d/t pt w/ signs/symptoms of malnutrition. Will provide magic cup or ensure pudding w/ lunch and dinner for increased nutrition if consumed Will provide 120 ml glucerna shake w/ medpass 4x/day for increased nutrition if consumed. Lab / Micro Data Result Diagrams: 08/20/21 10:05 08/22/21 05:40 Labs: Laboratory Results - last 24 hr 08/20/21 10:05: B-Natriuretic Peptide 562.6 H 08/21/21 10:57: POC Glucose 159 H 08/21/21 15:58: POC Glucose 199 H 08/21/21 21:20: POC Glucose 245 H 08/22/21 05:40: Sodium 134 L, Potassium 4.1, Chloride 101, Carbon Dioxide 26.0, Anion Gap 7, BUN 25 H, Creatinine 1.33 H, Estim Creat Clear Calc 49.14, Est GFR (MDRD) Af Amer 68, Est GFR (MDRD) Non-Af 56 L, BUN/Creatinine Ratio 18.8, Glucose 129 H, Calcium 8.2 L, Phosphorus 2.3 L, PSA Screen 11.70 H 08/22/21 06:17: POC Glucose 129 H Micro: Microbiology 08/19/21 23:10 Urine Catheter - Catheter Urine Culture - Final Culture exhibits no growth. Physical Exam Const alert and no apparent distress General Appearance: cooperative HEENT Mouth: dry mucous membranes Eyes PERRL Eyes Narrative: He is now able to look at me when I stand on his left side and the neglect is improving. Resp normal respiratory effort and clear to auscultation bilaterally Auscultation: diminished lung sounds; Negative for rales or wheezes Cardio Cardio Narrative: Irregular irregular with controlled ventricular response. No gallop GI normal to inspection, nondistended, normoactive bowel sounds, soft to palpation and non-tender GI Narrative: No guarding with palpation Extremity no calf tenderness General Extremity: Negative for edema Skin General Skin Exam: no breakdown Rashes: no rashes Wounds: Negative for wounds noted Psych Psych Narrative: No agitation. Sleeping well. Starting to eat better. He is cooperative and pleasant. Appearance: appropriate Assessment & Plan Assessment/Plan (1) Debility: (2) Arterial ischemic stroke, MCA, left, acute: (3) Petechial hemorrhage: (4) Aphasia: (5) Diabetic nephropathy with proteinuria: (6) Urine retention: (7) Elevated PSA, between 10 and less than 20 ng/ml: (8) Orthostatic hypotension: (9) Severe protein-calorie malnutrition: (10) Hypophosphatemia: (11) Atrial fibrillation: QUALIFIERS: Atrial fibrillation type: unspecified Qualified Code(s): I48.91 - Unspecified atrial fibrillation (12) Cardiomyopathy: QUALIFIERS: Cardiomyopathy type: unspecified Qualified Code(s): I42.9 - Cardiomyopathy, unspecified (13) Diabetes: QUALIFIERS: Diabetes mellitus type: type 2 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 I suspect he has IV volume depletion since the urine chloride is only 13. Will hydrate with NS at 60 cc/hr for 1 liter and recheck orthostatics in the AM and a BMP on Friday. 2. Sodium phosphate 30 mm IV today and recheck Phos on Friday. 3. Amiodarone has been added to the drug regimen to see if we can get him into a SR and to help with rate control. Hopefully will be able to taper the Metoprolol dose some to help with the orthostatic hypotension. 4. Insert a Loera catheter. Prostate is enlarged and he is retaining urine. The PSA is elevated. Can not really add Avodart/Flomax/Cardura or Proscar due to the orthostasis and the c/o lightheadedness. Will need to follow up with Urology. Nursing has had occasional trouble getting the catheter completely through the prostate and have had to apply pressure to the bladder to get urine to drain. I do not want to traumatize prostate and then not be able to get a catheter in. 5. Likely needs a tilt table test in the future. I am hoping the orthostatis improves with gentle hydration and we won't need to use Midodrin with all his heart issues. 6. Add Jardiance to his drug regimen in light of stroke, CAD and CHF....will improve prognosis. May need to decrease insulin so will continue to monitor the BS's AC and HS for now. 6. Continue ASA and Plavix for CAD and SCD's for DVT prophylaxis. Repeat a NC CTB on Friday and if no increase in the petechial hemorrhage will start anticoagulation. 7. Continue therapy. Charges/Coding Visit Charges Inpatient E&M: 67296 Subs Hosp L2
[2021-08-22 11:26] LABS: Bedside Glucose 191 mg/dL (74-106)
[2021-08-22] MEDS: Insulin Lispro 100 UNIT/ML INSULN.PEN SC (11:41)
--- NOTE | 2021-08-22 11:53 | SP.MBSS_ITS ---
Modified Barium Swallow - Patient Information Study Date: 08/22/21 Study Time: 13:00 Direct Billable Minutes: 120 Total Minutes procedure & reportin Diagnosis: Arterial ischemic stroke, MCA, left (I63.512) Referring Physician: Melissa Mcarthur Reason for Referral: Objectively assess swallow function, risk for aspiration, and determine recommendations for least restrictive diet textures and compensatory strategies to improve safety of swallow. Medical History: The patient is a 70 year old male with PMH including CAD, remote HI, hx of CABG/PCI with multiple stents, tobacco dependence, HTN, HLD, DM II, COPD and Depression. He had sudden onset of R side weakness and slurred speech on 08/09/21 while walking in a parking lot. He was taken to [facility] ED and at arrival was noted to be in AF with a BP of 170/109. CTA findings were consistent with a left M2 branch occlusion. TPA was administered and the patient was jimenes sferred to [facility] for mechanical thrombectomy/TNK. Following TPA and thrombectomy he had residual R side weakness and expressive aphasia. CT post TPA and TNK showed petechial hemorrhage in the area of the stroke. His admission to [facility] was complicated by a E. Coli UTI and he reportedly received a full course of antibiotics. While at [facility] he was seen by PT/OT/ST. He was transferred to [facility] acute rehab on 08/19/21 for 3 hours of therapy daily to restore function/independence at or near his level prior to recent stroke. Speech therapy evaluated the patient. He was recommended for MBS study to objectively assess aspiration risk and swallow function. Current Diet Ordered: Puree textures / nectar thick liquids Dentition: Edentulous Mental Status: Impaired - Pt is aphasic. He had difficulty following commands, including cues to initiate swallow of bolus, dry swallow, and take small sips. Respiratory Status: Oxygenating on Room Air - Penetration-Aspiration Scale Penetration-Aspiration Scale: OBJECTIVE ASSESSMENT OF SWALLOW FUNCTION (QUANTITATIVE ? PER TRIAL): PENETRATION / ASPIRATION SCALE (CHAVIRA): 1 = does not enter airway 2 = enters airway/above vocal folds/ejected 3 = enters airway/above vocal folds/not ejected 4 = enters airway/contacts vocal folds/ejected 5 = enters airway/contacts vocal folds/not ejected 6 = enters airway/below vocal folds/ejected 7 = enters airway/below vocal folds/not ejected despite effort 8 = enters airway/below vocal folds/no effort VIDEOFLOROSCOPIC SCALE SCORE (CHAVIRA): Grade I = aspiration of material that has penetrated into the laryngeal vestibule, intact cough reflex Grade II = aspiration < 10 % of the bolus, intact cough reflex Grade III = aspiration of < 10 % of the bolus, reduced cough reflex or aspiration of > 10 % of the bolus, intact cough reflex Grade IV = aspiration of > 10 % of the bolus, reduced cough reflex - Penetration-Aspiration Scale Score Thin Liquid via teaspoon Result: 1= does not enter airway Thin Liquid via teaspoon Trial 2 Result: 3= enters airways/above vocal folds/not ejected Thin Liquid via large single sip from cup Result: 2= enter airway/above vocal folds/ejected - Post prandial aspiration of pharyngeal residue - weak cough reflex in response [place] Thick Liquid via large single sip from cup Result: 1= does not enter airway Honey Thick Liquid via small large sip from cup Result: 1= does not enter airway Pudding via teaspoon with esophageal screen Result: 1= does not enter airway - trace residue in laryngeal vestibule and on vocal folds, likely post prandial penetration of pharyngeal residue from previous trials [place] Thick Liquid via large single sip from cup Trial 2 Result: 5= enters airways/contacts vocal folds/not ejected Honey Thick Liquid via large single sip from cup Trial 2 Result: 1= does not enter airway 03/24 Cookie Comment: Trialed ice chip prior to trialing cookie. He initiated mastication attempts so [employer] proceeded with small bite of cookie in pudding. The patient was unable to mash 03/24 [place] cookie, so YE[employer] cleared it from the patient's oral cavity. Honey Thick Liquid via small single sip from cup Result: 1= does not enter airway - Post prandial aspiration, likely residue from NTL that penetrated to the vocal folds without ejection - Oral Phase Labial Seal: Escape progressing to mid-chin Tongue Control During Bolus Hold: Posterior escape of less than half of bolus Bolus Preparation/Mastication: Minimal chewing/mashing with majority of bolus unchewed Bolus Transport/Lingual Motion: Repetitive/disorganized tongue motion Oral Residue: Minimal to no clearance - Pharyngeal Phase Initiation of Pharyngeal Swallow: Bolus head in pyriforms Soft Palate Elevation: No bolus between soft palate and pharyngeal wall Laryngeal Elevation: Partial superior movement thyroid cart/partial apprx aryt- epig petiole Anterior Hyoid Excursion: Partial anterior movement Epiglottic Movement: Partial inversion Laryngeal Vestibule Closure at Height of Swallow: Incomplete; narrow column of air/contrast in laryngeal vestibule Pharyngeal Stripping Wave: Present - complete Pharyngoesophageal Segment Opening: Parital distension and partial duration; parital obstruction of flow Tongue Base Retraction: Wide column of contrast between tongue base & post. pharyngeal wall Pharyngeal Residue: Collection of residue within or on pharyngeal structures - Esophageal Phase Esophageal Clearance: Esophageal retention w/ retrograde flow below pharyngoesophageal seg. - Diagnosis/Impression Diagnosis: Moderate-severe oropharyngeal phase dysphagia (R13.12) Impression: The oral phase is marked by severe deficits in mastication. He attempted to chew, but was unable to mash 1/8 shortbread cookie and required [employer] to clear from oral cavity. He demonstrated lingual pumping for A-P transport of pudding. He required piecemeal deglutition with minimal bolus clearance on the first swallow. Second swallow cleared majority of pudding from the oral cavity. He also demonstrated decreased bolus control with posterior loss of liquids prior to the pharynx prior to swallow onset. The pharyngeal phase is marked by decreased airway closure and moderate pharyngeal residues. He has mildly decreased anterior hyoid excursion and laryngeal elevation. He has moderately decreased tongue base retraction, decreased epiglottic inversion, and decreased UES opening/duration, which all resulted in increased pharyngeal residue. Pharyngeal residue places the patient at increased risk for post prandial aspiration. He did demonstrated post prandia l aspiration of thin liquids with weak cough reflex. He demonstrated SILENT post prandial aspiration of nectar thick liquids. SEE PAS scores above for additional details regarding laryngeal penetration and aspiration. The esophageal phase is marked by min retention of pudding bolus in upper and mid esophagus. He had retrograde flow of pudding contrast in the lower esophagus, which remained well below the PES, prior to emptying through the LES. - Recommendations Diet: Puree Textures, Honey-thick Liquids Compensatory Strategies: Small Bites, Small Sips, Slow Rate, Multiple Swallows - Encourage double swallows - pt unable to execute during MBS study, Sitting upright, Remain sitting upright for 30 minutes after PO intake Supervision: Assist as needed - Assist feeding liquids to decrease bolus size, 1:1 Close Supervision Recommend Repeat Modified Barium Swallow: Yes Comment: 2-4 weeks after implementation of oropharyngeal strengthening exercise program. Need for Skilled Speech Therapy Services: Yes Comment: Will recommend the patient for outpatient dysphagia therapy to address deficits in oropharyngeal swallow function. Would consider the patient for oropharyngeal strengthening to improve lingual coordination, tongue base retraction, hyolaryngeal elevation & excursion, and duration of UES opening. The patient would benefit from thorough education regarding diet recommendations and recommended compensatory strategies. Pending good diet tolerance, would strongly consider the patient for implementation of [place] Free Water Protocol (FFWP) to encourage hydration and promote increased opportunities for swallowing throughout the patient?s day. In addition, will recommend trialing ground textures with YE[employer] to consider the patient for diet advancement. Will recommend repeat MBS study prior to advancing liquids. Education Completed: 1. Described result of evaluation., 7. Pt requires further education on strategies & risks. - Image Count: [phone] - Status Active ST Patient: Active - Contact Information [facility] Speech Therapy:: Kalee Harris M.A. [facility] Speech-Language Pathologist [facility] [address] [place] [address] [email or web address] [phone] 08/22/21 14:24
[2021-08-22] MEDS: 0.9% Normal Saline 1,000 ML 60 ML IV (12:08)
--- NOTE | 2021-08-22 12:55 | RAD_ITS ---
STUDY: XR Shoulder Min 2 Views REASON FOR EXAM: Male, 70 years old. pain after a fall TECHNIQUE: XR Shoulder Min 2 Views LEFT COMPARISON: None. FINDINGS: Normal glenohumeral articulation. Normal acromioclavicular joint. Normal acromion. Normal humeral head and visualized proximal humerus. The soft tissue structures are unremarkable. Normal visualized pulmonary apex. RAD/Shoulder min 2 Views IMPRESSION: There are no acute findings of the shoulder. Electronically Signed: Joe Greene MD at 16:51 EDT ,
[2021-08-22] MEDS: Arthritis Pain Compound 60 CLICK TUBE TOPICAL ×2 (13:37→22:33)
[2021-08-22 16:46] LABS: Bedside Glucose 129 mg/dL (74-106)
[2021-08-22] MEDS: Mirtazapine 15 MG Tablet PO (20:32)
[2021-08-22] MEDS: Atorvastatin Calcium 80 MG Tablet PO (22:35)
[2021-08-22] MEDS: Glucerna Shake 120 ML LIQUID PO (22:35)
[2021-08-22] MEDS: Insulin Glargine-YFGN 100 UNIT/ML Pen 10 UNIT SC (22:44)
[2021-08-22 23:31] LABS: Bedside Glucose 200 mg/dL (74-106)
[2021-08-23] MEDS: Na Biphos/Potassium Phosphate PACKET 1 PACKET PO ×2 (07:03→13:57)
[2021-08-23] MEDS: Arthritis Pain Compound 60 CLICK TUBE TOPICAL ×3 (07:04→21:12)
[2021-08-23 07:10] LABS: Bedside Glucose 141 mg/dL (74-106)
[2021-08-23 07:48] VITALS: PULSE 85
[2021-08-23] MEDS: Fluticasone/Salmeterol 232-14 Inhaler 1 PUFF INHALATION ×2 (07:48→21:12)
[2021-08-23] MEDS: Metoprolol Tartrate 25 MG Tablet PO ×2 (07:48→21:13)
[2021-08-23] MEDS: Furosemide 40 MG Tablet PO (07:48)
[2021-08-23] MEDS: Pantoprazole Sodium 20 MG Tablet PO (07:48)
[2021-08-23] MEDS: Empagliflozin 10 MG Tablet PO (07:48)
[2021-08-23] MEDS: Amiodarone 200 MG Tablet PO (07:49)
[2021-08-23] MEDS: Aspirin E.C. 81 MG Tablet PO (07:49)
[2021-08-23] MEDS: buPROPion (XL) 150 MG TABLET.XL PO (07:49)
[2021-08-23] MEDS: Clopidogrel Bisulfate 75 MG Tablet PO (07:49)
[2021-08-23] MEDS: Lisinopril 2.5 MG Tablet PO (07:49)
[2021-08-23] MEDS: Gabapentin 300 MG Capsule PO (07:58)
[2021-08-23 08:00] VITALS: BP 118/64; PULSE 72; RESP 17; TEMP 36.3; O2SAT 97
[2021-08-23] MEDS: Umeclidinium Bromide Inhaler 1 PUFF INHALATION (08:00)
[2021-08-23 09:00] VITALS: BP 102/63; BP 98/54; BP 99/57; PULSE 76; PULSE 77; PULSE 81
[2021-08-23] MEDS: Menthol/Lanolin/Calamine/Znox 113 GM Tube 1 APPLIC TOPICAL ×2 (10:45→21:18)
[2021-08-23 12:25] LABS: Bedside Glucose 147 mg/dL (74-106)
--- NOTE | 2021-08-23 13:07 | CASEMGMT ---
Social Work IDT met with patient, , dtr and brother for Team meeting. Discussed patient's progress in PT/OT/ST/SN. [facility] and continued stay is not guaranteed with each review. Discussed alternative DC goals. Provided SNF list [facility] to to choose several facilities. Pt cannot return home and care for at this time. That is the altimate DC goal. Discussed appeal options, per family's request. SW will continue to follow for DC planning. Janey Mejia, [employer]
--- NOTE | 2021-08-23 17:12 | PN_ITS ---
Subjective Subjective Geoffrey was seen on TEAM rounds today. His Padmini, dtr Sammi and brother Nicko were Present in the room. Afebrile VSS - he was tilt negative today but nursing is only standing him for 1 minute. Maintaining appropriate oxygen saturation on RA Oral intake was excellent yesterday BUT, he s now on honey thick liquids and oral intake has not been as good. Discussed with nursing - no problems that need addressed Reviewed the PT/OT/ST notes - I reviewed the results of the MBS. He has moderate to severe oropharyngeal phase dysphagia with severe deficits in mastication. Pur?ed textures and honey thick liquids were recommended. Medication list reviewed. Left shoulder XRAY was reviewed - no acute findings such as fracture or dislocation. He may have just irritated it with the recent fall or he could have a cuff tear......if severe pain persists or current pain gets worse will likely need an MRI He denies lightheadedness today. He seems to understand what is being said with some lapses in attention and nods his head or makes hand gestures appropriately. No speech for me today. His face is very expressive. Denies CP, SOB, lightheadedness, N/V, cephalgia, abd pain. The left shoulder pain is better today with the arthritis cream. Blood sugar record was reviewed. All blood sugars have been less than 150 today with no hypoglycemia. Has not required any insulin coverage. Fasting blood sugar was 141. He started Jardiance today. Objective Data Objective Data Vital Signs: Vital Signs Temp Pulse Resp BP Pulse Ox 97.4 F L 81 17 102/63 97 08/23/21 08:00 08/23/21 09:00 08/23/21 08:00 08/23/21 09:00 08/23/21 08:00 Oxygen Delivery Method Room Air Weight: 150 lb 5.684 oz Intake & Output: Intake and Output for Last 24 Hours 08/21/21 08/22/21 08/23/21 23:59 23:59 23:59 Intake Total 1450 / 1450 2542 / 2542 1653 / 1653 Output Total 1925 / 1925 1450 / 1450 1900 / 1900 Balance -475 / -475 1092 / 1092 -247 / -247 Medical Nutrition Assessment Dietitian: Malnutrition Criteria Met Start: 08/20/21 10:19 Freq: Status: Active Protocol: Document 08/20/21 10:23 [facility] (Rec: 08/20/21 10:24 [facility] [id number]) Nutrition Malnutrition Evidence of Malnutrition Exists Yes Malnutrition (severe): Acute Illness/Injury Evidenced By Suboptimal Energy Intake ( Moderate),Weight Loss (Severe) ,Physical Changes (Moderate) Clinical Problem Acute Disease or Injury Related Malnutrition Etiology severe malnutrition related to CVA making it difficult to consume adequate nutrition to meet est nutritional needs Signs/Symptoms as evidenced by decreased appetite since stroke, need for mech altered food consistencies, 9.6% wt loss < 14 days and fat/muscle loss ( clavicle, acromion process, buccal/orbital/temporal areas, upper arms). 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 Will provide magic cup or ensure pudding w/ lunch and dinner for increased nutrition if consumed Will provide 120 ml glucerna shake w/ medpass 4x/day for increased nutrition if consumed. Lab / Micro Data Result Diagrams: 08/20/21 10:05 08/22/21 05:40 Labs: Laboratory Results - last 24 hr 08/22/21 22:43: POC Glucose 200 H 08/23/21 06:55: POC Glucose 141 H 08/23/21 12:08: POC Glucose 147 H Micro: Microbiology 08/19/21 23:10 Urine Catheter - Catheter Urine Culture - Final Culture exhibits no growth. Physical Exam Const alert and no apparent distress Constitutional Narrative: Making good eye contact, appropriate General Appearance: cooperative and comfortable HEENT moist oral mucous membranes Eyes Eyes Narrative: He is scanning to the right now and turning to look at his dtr on his R side during rounds. Neck no lymphadenopathy, supple and no carotid bruits Resp normal respiratory effort and no use of accessory muscles Resp Narrative: Not tachypneic Auscultation: diminished lung sounds; Negative for rales or wheezes Cardio S1 normal heart sound, S2 normal heart sound, no rub and no gallops Cardio Narrative: irreg irreg rhythm with good HR control GI normal to inspection, nondistended, normoactive bowel sounds and non-tender GI Narrative: No guarding with palpation. Extremity no clubbing, cyanosis or edema Extremity Narrative: denies calf pain Skin Skin Narrative: No rashes, no skin breakdown. General Skin Exam: no breakdown Rashes: no rashes Neuro oriented x3 Neuro Narrative: less R side neglect than at admission. Moving the R should and elbow but, nothing distal to the elbow. Was able to take steps at the wall rail today with max A X1......less pushing to the R Psych Psych Narrative: Not agitated. Not fidgeting, no tears. He is very expressive with his face and hands. Seems to understand what we are saying and is paying attention with a few lapses in concentration. Appearance: appropriate Assessment & Plan Assessment/Plan (1) Debility: PLAN: Making progress in therapy. MBS with mod-severe oropharyngeal dysphagia and diet has been downgraded to pur?ed with honey thick liquids. Continue with atorvastatin 80 mg nightly Continue lisinopril 2.5 mg daily Continue aspirin 81 mg daily and 75 mg of Plavix due to history of coronary disease with multiple stents and CABG. Plan on starting Eliquis on Friday if his repeat CT brain shows no increased hemorrhage. Continue PT/OT/ST. (2) Arterial ischemic stroke, MCA, left, acute: PLAN: This was an embolic stroke associated with atrial fibrillation. He received tPA which was followed by a thrombectomy and TNK. He had a petechial hemorrhage on the 24-hour post tPA noncontrast CT brain. (3) Petechial hemorrhage: (4) Right-sided visual neglect: PLAN: This is improving and he is now more aware of the R side and can scan to the R. (5) Acute right hemiparesis: (6) Kwabena-neglect of right side: (7) Dysphagia: QUALIFIERS: Dysphagia type: oropharyngeal phase Qualified Code(s): R13.12 - Dysphagia, oropharyngeal phase (8) Aphasia: (9) Atrial fibrillation: QUALIFIERS: Atrial fibrillation type: unspecified Qualified Code(s): I48.91 - Unspecified atrial fibrillation PLAN: Currently rate controlled with 25 of metoprolol twice daily. Amiodarone was added in hopes that we could get him into a regular rhythm and keep him there. If he has to have a cardioversion the amiodarone would be helpful in maintaining a SR if that is achieved. Also hoping that we can decrease the metoprolol dose due to the orthostatic hypotension. (10) Cardiomyopathy: QUALIFIERS: Cardiomyopathy type: unspecified Qualified Code(s): I42.9 - Cardiomyopathy, unspecified PLAN: ischemic +/- tachycardia induced. Will be interested to see a repeat ECHO in about 6 months to re-evaluate the EF now that he is rate con trolled. (11) Left shoulder pain: PLAN: Better with the arthritis cream so will continue this. No Fx, dislocation on the XRAY yesterday....he could have a rotator cuff injury so if the pain continued will more likely than not need a MRI post DC. (12) Urine retention: PLAN: BPH.....possibly also with a prostate malignancy. Needs worked up as an OP. Will refer to urology. Do not start Flomax due to orthostatic hypotension. For now will maintain the Lo[place] (13) Elevated PSA, between 10 and less than 20 ng/ml: (14) Orthostatic hypotension: PLAN: He was not orthostatic today following hydration yesterday....but, he stood for 1 minute or less and I do not consider this a valid test. May need to have a tilt table test as an OP. Need to keep him hydrated enough to keep him out of RF but dry enough to keep him out of CHF. Continue daily weights and accurate I&O's. If the HR starts to decrease with the amiodarone will try and decrease the Metoprolol dose. (15) Severe protein-calorie malnutrition: PLAN: Continue to monitor nutritional intake closely and weights. (16) GERD (gastroesophageal reflux disease): QUALIFIERS: Esophagitis presence: esophagitis presence not specified Qualified Code(s): K21.9 - Gastro-esophageal reflux disease without esophagitis Charges/Coding Visit Charges Inpatient E&M: 25572 Subs Hosp L2
[2021-08-23 17:21] LABS: Bedside Glucose 123 mg/dL (74-106)
[2021-08-23 19:32] VITALS: BP 120/67; PULSE 52; RESP 17; TEMP 36.8; O2SAT 99
[2021-08-23 21:10] VITALS: BP 113/68; PULSE 83
[2021-08-23 21:13] VITALS: BP 113/68; PULSE 83
[2021-08-23] MEDS: Mirtazapine 15 MG Tablet PO (21:13)
[2021-08-23] MEDS: Insulin Glargine-YFGN 100 UNIT/ML Pen 10 UNIT SC (21:13)
[2021-08-23] MEDS: Atorvastatin Calcium 80 MG Tablet PO (21:13)
[2021-08-23 21:25] LABS: Bedside Glucose 201 mg/dL (74-106)
[2021-08-24] MEDS: Arthritis Pain Compound 60 CLICK TUBE TOPICAL ×3 (05:25→22:26)
[2021-08-24 07:06] LABS: Bedside Glucose 117 mg/dL (74-106)
[2021-08-24 07:47] VITALS: PULSE 77
[2021-08-24] MEDS: Empagliflozin 10 MG Tablet PO (07:47)
[2021-08-24] MEDS: Amiodarone 200 MG Tablet PO (07:47)
[2021-08-24] MEDS: Pantoprazole Sodium 20 MG Tablet PO (07:47)
[2021-08-24] MEDS: Metoprolol Tartrate 25 MG Tablet PO ×2 (07:47→22:24)
[2021-08-24] MEDS: Aspirin E.C. 81 MG Tablet PO (07:47)
[2021-08-24] MEDS: Lisinopril 2.5 MG Tablet PO (07:47)
[2021-08-24] MEDS: Gabapentin 300 MG Capsule PO (07:47)
[2021-08-24] MEDS: Clopidogrel Bisulfate 75 MG Tablet PO (07:47)
[2021-08-24] MEDS: Furosemide 40 MG Tablet PO (07:47)
[2021-08-24] MEDS: buPROPion (XL) 150 MG TABLET.XL PO (07:52)
[2021-08-24] MEDS: Fluticasone/Salmeterol 232-14 Inhaler 1 PUFF INHALATION ×2 (07:54→22:26)
[2021-08-24] MEDS: Umeclidinium Bromide Inhaler 1 PUFF INHALATION (07:54)
[2021-08-24 08:00] VITALS: BP 126/80; PULSE 87; RESP 18; TEMP 36.3; O2SAT 100
[2021-08-24] MEDS: Menthol/Lanolin/Calamine/Znox 113 GM Tube 1 APPLIC TOPICAL ×2 (08:11→22:26)
[2021-08-24 11:06] LABS: Bedside Glucose 212 mg/dL (74-106)
[2021-08-24] MEDS: Insulin Lispro 100 UNIT/ML INSULN.PEN SC ×2 (12:06→16:52)
[2021-08-24 16:11] LABS: Bedside Glucose 171 mg/dL (74-106)
[2021-08-24] MEDS: 0.9% Saline Lock 10 ML Syringe IV ×2 (17:56→22:24)
[2021-08-24 19:36] VITALS: BP 133/46; PULSE 72; RESP 18; TEMP 36.7; O2SAT 93
[2021-08-24] MEDS: Mirtazapine 15 MG Tablet PO (20:12)
[2021-08-24 22:24] VITALS: BP 133/46; PULSE 72
[2021-08-24 22:25] LABS: Bedside Glucose 164 mg/dL (74-106)
[2021-08-24] MEDS: Atorvastatin Calcium 80 MG Tablet PO (22:25)
[2021-08-24] MEDS: Insulin Glargine-YFGN 100 UNIT/ML Pen 10 UNIT SC (22:25)
[2021-08-25] MEDS: Arthritis Pain Compound 60 CLICK TUBE TOPICAL ×3 (05:28→20:27)
[2021-08-25] MEDS: Magnesium Hydroxide 30 ML UDC PO (05:36)
[2021-08-25 06:30] LABS: Bedside Glucose 136 mg/dL (74-106)
[2021-08-25 08:00] VITALS: BP 136/73; PULSE 62; RESP 20; TEMP 36.1; O2SAT 94
[2021-08-25] MEDS: Amiodarone 200 MG Tablet PO (08:01)
[2021-08-25] MEDS: Lisinopril 2.5 MG Tablet PO (08:01)
[2021-08-25] MEDS: Clopidogrel Bisulfate 75 MG Tablet PO (08:01)
[2021-08-25] MEDS: buPROPion (XL) 150 MG TABLET.XL PO (08:01)
[2021-08-25] MEDS: Aspirin E.C. 81 MG Tablet PO (08:01)
[2021-08-25] MEDS: Empagliflozin 10 MG Tablet PO (08:01)
[2021-08-25] MEDS: Furosemide 40 MG Tablet PO (08:01)
[2021-08-25] MEDS: Menthol/Lanolin/Calamine/Znox 113 GM Tube 1 APPLIC TOPICAL ×2 (08:02→20:27)
[2021-08-25] MEDS: Umeclidinium Bromide Inhaler 1 PUFF INHALATION (08:02)
[2021-08-25] MEDS: Fluticasone/Salmeterol 232-14 Inhaler 1 PUFF INHALATION ×2 (08:02→20:27)
[2021-08-25] MEDS: Gabapentin 300 MG Capsule PO (08:04)
[2021-08-25 08:05] VITALS: PULSE 62
[2021-08-25] MEDS: Metoprolol Tartrate 25 MG Tablet PO ×2 (08:05→20:28)
[2021-08-25] MEDS: Pantoprazole Sodium 20 MG Tablet PO (08:11)
[2021-08-25 11:35] LABS: Bedside Glucose 190 mg/dL (74-106)
[2021-08-25] MEDS: Insulin Lispro 100 UNIT/ML INSULN.PEN SC ×2 (12:55→16:40)
[2021-08-25 16:41] LABS: Bedside Glucose 167 mg/dL (74-106)
[2021-08-25 19:27] VITALS: BP 118/63; PULSE 106; RESP 18; TEMP 37.1; O2SAT 90
[2021-08-25] MEDS: Mirtazapine 15 MG Tablet PO (20:26)
[2021-08-25 20:28] VITALS: BP 118/63; PULSE 106
[2021-08-25] MEDS: Atorvastatin Calcium 80 MG Tablet PO (20:28)
[2021-08-25] MEDS: Bisacodyl 10 MG Suppository RC (20:29)
[2021-08-25] MEDS: Insulin Glargine-YFGN 100 UNIT/ML Pen 10 UNIT SC (21:55)
[2021-08-25] MEDS: 0.9% Saline Lock 10 ML Syringe IV (21:58)
[2021-08-25 22:06] LABS: Bedside Glucose 231 mg/dL (74-106)
[2021-08-26] MEDS: Arthritis Pain Compound 60 CLICK TUBE TOPICAL ×3 (06:22→21:43)
[2021-08-26 06:35] LABS: Bedside Glucose 129 mg/dL (74-106)
[2021-08-26] MEDS: Aspirin E.C. 81 MG Tablet PO (07:56)
[2021-08-26] MEDS: Lisinopril 2.5 MG Tablet PO (07:56)
[2021-08-26] MEDS: Amiodarone 200 MG Tablet PO (07:57)
[2021-08-26] MEDS: Fluticasone/Salmeterol 232-14 Inhaler 1 PUFF INHALATION ×2 (07:57→21:44)
[2021-08-26] MEDS: Furosemide 40 MG Tablet PO (07:57)
[2021-08-26] MEDS: Clopidogrel Bisulfate 75 MG Tablet PO (07:57)
[2021-08-26 08:00] VITALS: BP 120/61; PULSE 78; PULSE 80; RESP 16; TEMP 36.8; O2SAT 96
[2021-08-26] MEDS: Metoprolol Tartrate 25 MG Tablet PO ×2 (08:00→21:44)
[2021-08-26] MEDS: buPROPion (XL) 150 MG TABLET.XL PO (08:00)
[2021-08-26] MEDS: Empagliflozin 10 MG Tablet PO (08:00)
[2021-08-26] MEDS: Pantoprazole Sodium 20 MG Tablet PO (08:01)
[2021-08-26] MEDS: Umeclidinium Bromide Inhaler 1 PUFF INHALATION (08:02)
[2021-08-26] MEDS: Gabapentin 300 MG Capsule PO (08:12)
[2021-08-26] MEDS: Menthol/Lanolin/Calamine/Znox 113 GM Tube 1 APPLIC TOPICAL ×2 (08:18→21:44)
[2021-08-26] MEDS: Insulin Lispro 100 UNIT/ML INSULN.PEN SC (11:21)
[2021-08-26 11:25] LABS: Bedside Glucose 270 mg/dL (74-106)
[2021-08-26 16:35] LABS: Bedside Glucose 133 mg/dL (74-106)
[2021-08-26] MEDS: 0.9% Saline Lock 10 ML Syringe IV ×2 (17:01→22:20)
[2021-08-26] MEDS: Mirtazapine 15 MG Tablet PO (19:44)
[2021-08-26 19:49] VITALS: BP 101/67; PULSE 54; RESP 18; TEMP 36.6; O2SAT 99
[2021-08-26 21:44] VITALS: BP 101/67; PULSE 54
[2021-08-26] MEDS: Atorvastatin Calcium 80 MG Tablet PO (21:44)
[2021-08-26] MEDS: Insulin Glargine-YFGN 100 UNIT/ML Pen 10 UNIT SC (21:45)
[2021-08-26 21:51] LABS: Bedside Glucose 149 mg/dL (74-106)
--- NOTE | 2021-08-27 03:28 | NURSING ---
REVIEWED AND AGREE WITH COMMUNITY LIAISON OFFICER'S FUNCTIONAL ASSESSMENT AND HANDOFF CHARTING.
[2021-08-27] MEDS: Arthritis Pain Compound 60 CLICK TUBE TOPICAL ×4 (06:48→21:46)
[2021-08-27 07:00] LABS: Bedside Glucose 126 mg/dL (74-106)
[2021-08-27] MEDS: Amiodarone 200 MG Tablet PO (07:51)
[2021-08-27] MEDS: Aspirin E.C. 81 MG Tablet PO (07:51)
[2021-08-27] MEDS: Umeclidinium Bromide Inhaler 1 PUFF INHALATION (07:52)
[2021-08-27] MEDS: Fluticasone/Salmeterol 232-14 Inhaler 1 PUFF INHALATION ×2 (07:52→21:47)
[2021-08-27 07:53] VITALS: PULSE 72
[2021-08-27] MEDS: Empagliflozin 10 MG Tablet PO (07:53)
[2021-08-27] MEDS: Metoprolol Tartrate 25 MG Tablet PO (07:53)
[2021-08-27] MEDS: Furosemide 40 MG Tablet PO (07:53)
[2021-08-27] MEDS: Pantoprazole Sodium 20 MG Tablet PO (07:55)
[2021-08-27] MEDS: buPROPion (XL) 150 MG TABLET.XL PO (07:55)
[2021-08-27] MEDS: Clopidogrel Bisulfate 75 MG Tablet PO (07:55)
[2021-08-27] MEDS: Lisinopril 2.5 MG Tablet PO (07:55)
[2021-08-27] MEDS: Menthol/Lanolin/Calamine/Znox 113 GM Tube 1 APPLIC TOPICAL ×2 (07:57→21:47)
[2021-08-27] MEDS: Nystatin Powder 15gm Bottle 1 APPLIC TOPICAL ×2 (07:57→21:51)
[2021-08-27 08:00] VITALS: BP 111/71; PULSE 72; RESP 18; TEMP 36.2; O2SAT 96
[2021-08-27] MEDS: Gabapentin 300 MG Capsule PO (08:00)
[2021-08-27] MEDS: Insulin Lispro 100 UNIT/ML INSULN.PEN SC (11:57)
[2021-08-27 12:00] LABS: Bedside Glucose 243 mg/dL (74-106)
--- NOTE | 2021-08-27 15:30 | PN_ITS ---
Subjective Subjective Afebrile VSS - The HR is now well controlled. The HR has ranged from 54-80 over the past 24H. No tachycardia. Maintaining appropriate oxygen saturation on RA Oral fluid intake is good. He took 1480yesterday. OP exceeds input every day. He ate 75 to 100% of his breakfast today. Last bowel movement was 08/25/2021. weight has been decreasing despite eating pretty well and getting supplements. He weighed 153 at admission to rehab and he weighed 144 today.......may be due to fluid losses. He is on Lasix 40 mg daily for CM with an EF of 34% recently. Discussed with nursing - no problems that need addressed. Sleeping well at night. Reviewed the PT/OT/ST notes Medication list reviewed. The blood sugar record was reviewed. Blood sugars are under good control with the exception of the blood sugar at lunchtime ( is not getting any coverage in the AM. ) He usually gets coverage once at day and that is at noon....he is very sensitive to insulin. He is on Jardiance in the AM and Lantus at HS. No h ypoglycemia. Denies pain and he also denies lightheadedness, SOB at rest, calf pain, N/V, abd pain, NIETO. He is having some muscle spasm in the R hamstring when doing therapy. Objective Data Objective Data Vital Signs: Vital Signs Temp Pulse Resp BP Pulse Ox 97.1 F L 72 18 111/71 96 08/27/21 08:00 08/27/21 08:00 08/27/21 08:00 08/27/21 08:00 08/27/21 08:00 Oxygen Delivery Method Room Air Weight: 143 lb 15.39 oz Intake & Output: Intake and Output for Last 24 Hours 08/25/21 08/26/21 08/27/21 23:59 23:59 23:59 Intake Total 1530 / 1530 1480 / 1480 240 / 240 Output Total 2425 / 2425 2100 / 2100 875 / 875 Balance -895 / -895 -620 / -620 -635 / -635 Medical Nutrition Assessment Dietitian: Malnutrition Criteria Met Start: 08/20/21 10:19 Freq: Status: Active Protocol: Document 08/24/21 11:40 [facility] (Rec: 08/24/21 11:40 [facility] [id number]) Nutrition Malnutrition Evidence of Malnutrition Exists Yes Malnutrition (severe): Acute Illness/Injury Evidenced By Suboptimal Energy Intake ( Moderate),Weight Loss (Severe) ,Physical Changes (Moderate) Clinical Problem Acute Disease or Injury Related Malnutrition Etiology Severe protein-calorie malnutrition related to difficulty swallowing and inadequate oral intake Signs/Symptoms as evidenced by need for mech altered food consistencies, PO averaging~50% meals, 9.6% wt loss <14 days and fat/muscle loss (clavicle, acromion process, buccal/orbital/ temporal areas, upper arms) Status Active Problem Recommendation Dietitian Recommendations/Changes Will continue liberal regular diet w/ consistency/texture as 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 Will adjust ensure pudding to with breakfast and magic cup to w/ lunch and dinner for increased nutrition if consumed. Will d/c 120 ml glucerna shake w/ medpass due to patient refusal since admit to rehab. Lab / Micro Data Result Diagrams: 08/20/21 10:05 08/22/21 05:40 Labs: Laboratory Results - last 24 hr 08/26/21 16:29: POC Glucose 133 H 08/26/21 21:44: POC Glucose 149 H 08/27/21 06:52: POC Glucose 126 H 08/27/21 11:56: POC Glucose 243 H Micro: Microbiology 08/19/21 23:10 Urine Catheter - Catheter Urine Culture - Final Culture exhibits no growth. Physical Exam Const alert and no apparent distress Constitutional Narrative: has a few words now. Able to follow simple commands. Ambulated 15 ft with a WW today at mod/max assist of 1. Advanced both feet on his own. Always smiling and pleasant with no agitation. General Appearance: cooperative HEENT normocephalic HEENT Narrative: Mucous membranes are very dry. No oropharyngeal lesions. Eyes PERRL, conjunctivae normal and no scleral icterus Eyes Narrative: able to track past midline and all the way to the R now. Resp clear to auscultation bilaterally Resp Narrative: diminished throughout. Not tachypneic. (4% on RA with ambulation today). Cardio Cardio Narrative: irreg irreg with a much slower HR today. No gallop. He was lying nearly flat in bed when I saw him with no SOB. GI normal to inspection, nondistended, normoactive bowel sounds, soft to palpation and non-tender Extremity no calf tenderness and no pedal edema Assessment & Plan Assessment/Plan (1) Weight loss: (2) Diabetic nephropathy with proteinuria: (3) Urine retention: (4) Orthostatic hypotension: (5) Acute right hemiparesis: (6) Severe protein-calorie malnutrition: (7) Hypophosphatemia: (8) Atrial fibrillation: QUALIFIERS: Atrial fibrillation type: unspecified Qualified Code(s): I48.91 - Unspecified atrial fibrillation (9) Cardiomyopathy: QUALIFIERS: Cardiomyopathy type: unspecified Qualified Code(s): I42.9 - Cardiomyopathy, unspecified (10) Dysphagia: QUALIFIERS: Dysphagia type: oropharyngeal phase Qualified Code(s): R13.12 - Dysphagia, oropharyngeal phase (11) Debility: (12) Arterial ischemic stroke, MCA, left, acute: PLAN: 1. BMP, MAG, Phos, CBC and a TSH in the AM 2. Decrease the Metoprolol to 12.5 mg BID 3. Add Glucophage 500 mg with breakfast 4. Hold Lasix until I see the labs in the AM........Could he have an incomplete DI? or does he just need less Lasix? 5. DC the Wellbutrin and continue the Remeron 6. Continue Jardiance 7. CTB without contrast and if no new bleeding areas will start the Eliquis in the AM. Charges/Coding Visit Charges Inpatient E&M: 49418 Subs Hosp L2
[2021-08-27 16:11] LABS: Bedside Glucose 136 mg/dL (74-106)
--- NOTE | 2021-08-27 16:18 | CASEMGMT ---
Social Work Continued stay approved with next update due on 08/30/2021. Voicemail left for spouse. Paulie Pérez MSW, VADIM-S
--- NOTE | 2021-08-27 16:20 | CT_ITS ---
STUDY: CT BRAIN WITHOUT CONTRAST REASON FOR EXAM: Male, 70 years old. recent petechial hemorrhage post TPA RADIATION DOSAGE (If Supplied By Facility): CTDIvol = ( 44.99 ) mGy, DLP = ( 762.36 ) mGycm TECHNIQUE: Transaxial CT imaging of the brain was performed without administration of intravenous contrast material. Individualized dose optimization techniques were used for this CT. COMPARISON: 08/20/2021 FINDINGS: Normal soft tissue structures. Normal calvarium. There is moderate cerebral atrophy with widening of the extra-axial spaces and ventricular dilatation. There are areas of decreased attenuation within the white matter tracts of the supratentorial brain, consistent with microvascular disease changes. Normal basal ganglia and thalami. Normal brainstem. Normal cerebellum. Decreased attenuation the posterior left parietal lobe consistent with subacute infarct. There is a similar appearance to the linear areas of increased attenuation within the gyri within the infarct consistent with petechial hemorrhage. Normal visualized paranasal sinuses. CT/Brain/Head without Contrast IMPRESSION: No change in subacute left parietal lobe infarct with petechial hemorrhage. Electronically Signed: Thom Duckworth MD at 16:39 EDT ,
[2021-08-27 19:57] VITALS: BP 133/70; PULSE 72; RESP 16; TEMP 36.8; O2SAT 94
[2021-08-27] MEDS: Mirtazapine 15 MG Tablet PO (20:52)
[2021-08-27] MEDS: Insulin Glargine-YFGN 100 UNIT/ML Pen 10 UNIT SC (21:47)
[2021-08-27 21:49] VITALS: BP 133/70; PULSE 72
[2021-08-27] MEDS: Metoprolol Tartrate 25 MG Tablet 12.5 MG PO (21:49)
[2021-08-27] MEDS: Atorvastatin Calcium 80 MG Tablet PO (21:49)
[2021-08-27] MEDS: 0.9% Saline Lock 10 ML Syringe IV (21:59)
[2021-08-27 22:11] LABS: Bedside Glucose 271 mg/dL (74-106)
[2021-08-28] VITALS (7 sets, daily range): BP systolic 95–123; BP diastolic 66–95; PULSE 61–100; RESP 16–18; TEMP 36.6–36.8; O2SAT 96
--- NOTE | 2021-08-28 01:54 | NURSING ---
Provided HS care this shift. [place] water protocol followed as ordered. Fluids given, pt drank 120ccs of free water.
--- NOTE | 2021-08-28 03:45 | NURSING ---
Reviewed and agree with CONTINUOUS MINING OPERATOR documentation and assessment charting.
[2021-08-28 05:16] LABS: Hematocrit 42.2 % (40-54); Hemoglobin 13.8 g/dL (13.0-16.5); Mean Corp Hgb Conc 32.7 g/dL (32-36); Mean Corpuscular Hgb 28.2 pg (27.0-32.0); Mean Corpuscular Volume 86.3 fL (80-94); Mean Platelet Vol. 10.6 fl (6.2-12.0); Platelet Count 275 K/mm3 (150-450); RBC Distribution Width CV 14.5 % (11.6-14.6); RBC Distribution Width SD 45.4 fl (35.1-43.9); Red Blood Count 4.89 M/mm3 (4.6-6.2); White Blood Count 10.6 K/mm3 (4.4-11.0)
[2021-08-28] MEDS: Arthritis Pain Compound 60 CLICK TUBE TOPICAL ×5 (05:26→21:21)
[2021-08-28 05:46] LABS: Anion Gap 4 (5-15); BUN 27 mg/dL (7-18); BUN/Creat Ratio 18.4 RATIO (10-20); Chloride 102 mmol/L (98-107); Creatinine, Serum 1.47 mg/dL (0.70-1.30); EST Glomerular Filtration Rate 50 mL/min (>60); Est Glom Filt Rate - Afr Amer 61 mL/min (>60); Estimated Creatinine Clearance 42.57 ml/min; Glucose 117 mg/dL (74-106); Magnesium 2.2 mg/dL (1.6-2.6); Phosphorus 3.8 mg/dL (2.5-4.9); Potassium 4.4 mmol/L (3.5-5.1); Sodium Level 134 mmol/L (136-145); Thyroid Stim Hormone (TSH) 3.27 uIU/mL (0.358-3.74)
--- NOTE | 2021-08-28 07:14 | NURSING ---
pt sitting in recliner pt offered fluids after fwp was given and pt took a few sips of water and stated he had enough and handed the glass back to staff member .
[2021-08-28 07:16] LABS: Bedside Glucose 120 mg/dL (74-106)
[2021-08-28] MEDS: Fluticasone/Salmeterol 232-14 Inhaler 1 PUFF INHALATION ×2 (07:50→21:44)
[2021-08-28] MEDS: Umeclidinium Bromide Inhaler 1 PUFF INHALATION (07:50)
[2021-08-28] MEDS: Amiodarone 200 MG Tablet PO (07:51)
[2021-08-28] MEDS: Aspirin E.C. 81 MG Tablet PO (07:51)
[2021-08-28] MEDS: metFORMIN HCl 500 MG Tablet PO (07:51)
[2021-08-28] MEDS: Clopidogrel Bisulfate 75 MG Tablet PO (07:52)
[2021-08-28] MEDS: Pantoprazole Sodium 20 MG Tablet PO (07:52)
[2021-08-28] MEDS: Lisinopril 2.5 MG Tablet PO (07:52)
[2021-08-28] MEDS: Empagliflozin 10 MG Tablet PO (07:53)
[2021-08-28] MEDS: Menthol/Lanolin/Calamine/Znox 113 GM Tube 1 APPLIC TOPICAL ×2 (07:54→21:42)
[2021-08-28] MEDS: Nystatin Powder 15gm Bottle 1 APPLIC TOPICAL ×2 (07:55→21:44)
[2021-08-28] MEDS: Gabapentin 300 MG Capsule PO (08:03)
[2021-08-28] MEDS: Metoprolol Tartrate 25 MG Tablet 12.5 MG PO ×2 (08:05→21:42)
[2021-08-28] MEDS: Senna/Docusate Sodium 1 Tablet 2 TABLET PO ×2 (10:36→21:44)
--- NOTE | 2021-08-28 10:53 | PCM.PROGNOTE ---
Subjective Subjective Afebrile VSS - The BP is well controlled and he is not orthostatic today. Maintaining appropriate oxygen saturation on RA Oral intake is good. He ate 75 to 100% of his breakfast today. He had 50 to 75% of his lunch and dinner. His fluid intake yesterday was 1200 and he had 1675 out for a balance of -475. Weight continues to decrease. Urine OP exceeds intake daily. Discussed with nursing - There was some conflict with a family member (brother Thierry) last evening and some inappropriate behavior. He was verbally abusive, but not physically abusive, to the nursing staff and demanding we copy Geoffrey's medical records and give them to him. He was politely informed by the charge nurse that he needs permission from Geoffrey or his to obtain the records and he would need to go through medical records. He Security did not have to be called and he left. Reviewed the PT/OT/ST notes Medication list reviewed. The BS record was reviewed. The lunch and HS sugars were elevated yesterday. He is starting Glucophage 550 mg Q AM today. No hypoglycemia. All lab was personally reviewed. CBC shows the WBC count is 10.6 which is down from 13.9 at admission. Hemoglobin, MCV and platelets are all within normal limits. The sodium today is 134 which is stable. Potassium is good at 4.4 and the BUN is 27 with a creatinine of 1.47. Creatinine at admission was 1.33. TSH is normal at 3.27. The noncontrast CT brain done for follow-up on petechial hemorrhage following tPA showed no change in subacute left parietal lobe infarct with petechial hemorrhage. Geoffrey is able to say more words than he was able to at admission. He answers yes and no appropriately to short simple questions. Denies CP, SOB, lightheadedness, abd pain, N/V cough, ST, NIETO. Appetite is improving and he is sleeping well. Breakfast is his best meal of the day. He is doing everything that therapy is asking of him. He is maintaining an upbeat attitude. Objective Data Objective Data Vital Signs: Vital Signs Temp Pulse Resp BP Pulse Ox 97.8 F 80 16 122/80 H 96 08/28/21 09:17 08/28/21 09:30 08/28/21 09:17 08/28/21 09:30 08/28/21 09:17 Oxygen Delivery Method Room Air Weight: 142 lb 8 oz Intake & Output: Intake and Output for Last 24 Hours 08/26/21 08/27/21 08/28/21 23:59 23:59 23:59 Intake Total 1480 / 1480 1200 / 1200 570 / 570 Output Total 2099 / 2099 1675 / 1675 650 / 650 Balance -620 / -620 -475 / -475 -80 / -80 Medical Nutrition Assessment Dietitian: Malnutrition Criteria Met Start: 08/20/21 10:19 Freq: Status: Active Protocol: Document 08/24/21 11:40 RMA (Rec: 08/24/21 11:40 RMA [id number]) Nutrition Malnutrition Evidence of Malnutrition Exists Yes Malnutrition (severe): Acute Illness/Injury Evidenced By Suboptimal Energy Intake ( Moderate),Weight Loss (Severe) ,Physical Changes (Moderate) Clinical Problem Acute Disease or Injury Related Malnutrition Etiology Severe protein-calorie malnutrition related to difficulty swallowing and inadequate oral intake Signs/Symptoms as evidenced by need for mech altered food consistencies, PO averaging~50% meals, 9.6% wt loss <14 days and fat/muscle loss (clavicle, acromion process, buccal/orbital/ temporal areas, upper arms) Status Active Problem Recommendation Dietitian Recommendations/Changes Will continue liberal regular diet w/ consistency/texture as per CIVIL LAWYER, currently on pureed food & honey/moderately-thick liquids. Will adjust ensure pudding to with breakfast and magic cup to w/ lunch and dinner for increased nutrition if consumed. Will d/c 120 ml glucerna shake w/ medpass due to patient refusal since admit to rehab. Lab / Micro Data Result Diagrams: 08/28/21 05:10 08/28/21 05:10 Labs: Laboratory Results - last 24 hr 08/27/21 11:56: POC Glucose 243 H 08/27/21 16:05: POC Glucose 136 H 08/27/21 21:42: POC Glucose 271 H 08/28/21 05:10: WBC 10.6, RBC 4.89, Hgb 13.8, Hct 42.2, MCV 86.3, MCH 28.2, MCHC 32.7, RDW Std Deviation 45.4 H, RDW Coeff of Toney 14.5, Plt Count 275, MPV 10.6 08/28/21 05:10: Sodium 134 L, Potassium 4.4, Chloride 102, Carbon Dioxide 28.0, Anion Gap 4 L, BUN 27 H, Creatinine 1.47 H, Estim Creat Clear Calc 42.57, Est GFR (MDRD) Af Amer 61, Est GFR (MDRD) Non-Af 50 L, BUN/Creatinine Ratio 18.4, Glucose 117 H, Calcium 9.0, Phosphorus 3.8, Magnesium 2.2, TSH 3.27 08/28/21 06:57: POC Glucose 120 H Micro: Microbiology 08/19/21 23:10 Urine Catheter - Catheter Urine Culture - Final Culture exhibits no growth. Radiography Diagnostic Testing: Radiology Impression Brain CT 08/27/21 16:20 IMPRESSION: No change in subacute left parietal lobe infarct with petechial hemorrhage. Electronically Signed: Thom Duckworth MD at 16:39 EDT , Physical Exam Const alert and no apparent distress Constitutional Narrative: Sitting in the recliner at the bedside. Making good eye contact with me. Makes hand gestures when trying to answer a question that help me determine what he is trying to say to a simple question. He was able to say a few words I could understand even though he slurred a bit. General Appearance: cooperative and well kempt HEENT HEENT Narrative: MM are very dry Resp clear to auscultation bilaterally Resp Narrative: Very diminished throughout but, reny in the bases. There is no wheezing and no rales appreciated. He is not tachypneic. He was not tachypneic while exercising in the therapy room today. Effort and Inspection: symmetric chest movement Cardio Cardio Narrative: BP is much better with the decrease in the metoprolol. He is tilt negative today. He is still in AF but the rate is controlled...the lowest was 61 and it increases to 80 with exertion. GI normal to inspection, nondistended, normoactive bowel sounds, soft to palpation and non-tender GI Narrative: No guarding with palpation. Narrative: The urine in the Loera back is terese and clear......I asked him to drink more today and he shook his head yes. We held the Lasix today Bladder / Kidney Exam: catheter in place urethral Extremity no calf tenderness and no pedal edema Skin General Skin Exam: no breakdown Rashes: no rashes Psych cooperative Appearance: grossly normal and appropriate Attitude: calm Activity / Motor Behavior: appropriate eye contact Assessment & Plan Assessment/Plan (1) Debility: (2) Arterial ischemic stroke, MCA, left, acute: (3) Atrial fibrillation: QUALIFIERS: Atrial fibrillation type: unspecified Qualified Code(s): I48.91 - Unspecified atrial fibrillation (4) Acute right hemiparesis: (5) Dysphagia: QUALIFIERS: Dysphagia type: oropharyngeal phase Qualified Code(s): R13.12 - Dysphagia, oropharyngeal phase (6) Aphasia: (7) Petechial hemorrhage: (8) Urine retention: (9) Severe protein-calorie malnutrition: (10) Weight loss: (11) Elevated PSA, between 10 and less than 20 ng/ml: (12) Cardiomyopathy: QUALIFIERS: Cardiomyopathy type: unspecified Qualified Code(s): I42.9 - Cardiomyopathy, unspecified (13) CAD (coronary artery disease): QUALIFIERS: Coronary Disease-Associated Artery/Lesion type: [place] artery [place] vs. transplanted heart: [place] heart Associated angina: without angina Qualified Code(s): I25.10 - Atherosclerotic heart disease of [place] coronary artery without angina pectoris (14) Depression determined by examination: PLAN: 1. Start Eliquis 2.5 mg BID today and check a a Factor Xi activity in 7-10 days to make sure he is absorbing the drug and it is not supratherapeutic. LFT's are unremarkable and the creat clearance is 40-50 depending on how hydrated he is. 2. The Glucophage given today did not help and I suspect he may be DM type 1.5. Will DC the Glucophage and start 2 units of Lispor with breakfast and supper. Continue to monitor the BS's AC and HS. 3. Will need to follow up with urology about the elevated PSA post DC 4. Continue the REmeron. Wellbutrin has been discontinued due to its SE of decreasing appetite. 5. Hold Lasix again in the AM and restart on at 20 mg daily. Continue to monitor the daily weights and also I&O 6. Start Flomax with supper tonight and check orthostatics daily X 3 days. Voiding trial after he has been on Flomax for 5-7 days. 7. Continue the nutritional supplements. French Drawer is following. 8. Will aim to keep the creat between 1.0 and 1.3, the potassium at > 4, Mag at 2 or greater 9. TSH is normal and should be checked once a year while he is on Amiodarone. 10. We have only 1 phone number for family and that is Padmini, his . There are 2 others listed as contacts, Nicko and Los, but, there are no phone numbers. Nursing contacted Padmini to see if we could get Marie's number or Victorina....Geoffrey's niece who is trying to help Padmini and Geoffrey with some planning but, Padmini can not find the numbers......hopefully someone will show up on for TEAM and we can get some contact numbers. Charges/Coding Visit Charges Inpatient E&M: 69698 Subs Hosp L2
[2021-08-28] MEDS: Insulin Lispro 100 UNIT/ML INSULN.PEN SC ×2 (12:10→17:30)
[2021-08-28 12:15] LABS: Bedside Glucose 243 mg/dL (74-106)
[2021-08-28 16:35] LABS: Bedside Glucose 109 mg/dL (74-106)
[2021-08-28] MEDS: Tamsulosin HCl 0.4 MG Capsule PO (17:30)
[2021-08-28] MEDS: Mirtazapine 15 MG Tablet PO (21:44)
[2021-08-28] MEDS: Atorvastatin Calcium 80 MG Tablet PO (21:44)
[2021-08-28] MEDS: APIXABAN 2.5 MG TABLET PO (21:45)
[2021-08-28] MEDS: Insulin Glargine-YFGN 100 UNIT/ML Pen 10 UNIT SC (21:49)
[2021-08-28 22:00] LABS: Bedside Glucose 153 mg/dL (74-106)
--- NOTE | 2021-08-29 01:06 | NURSING ---
Reviewed and agree with INSTRUCTOR WEAVING documentation and INSTRUCTOR WEAVING assessment charting.
[2021-08-29] MEDS: 0.9% Saline Lock 10 ML Syringe IV ×2 (05:57→11:06)
[2021-08-29] MEDS: Arthritis Pain Compound 60 CLICK TUBE TOPICAL ×5 (05:57→17:17)
[2021-08-29 07:41] LABS: Bedside Glucose 139 mg/dL (74-106)
[2021-08-29] MEDS: Insulin Lispro 100 UNIT/ML INSULN.PEN SC ×2 (07:50→17:13)
[2021-08-29] MEDS: Nystatin Powder 15gm Bottle 1 APPLIC TOPICAL ×2 (07:52→20:57)
[2021-08-29] MEDS: Menthol/Lanolin/Calamine/Znox 113 GM Tube 1 APPLIC TOPICAL ×2 (07:53→20:56)
[2021-08-29] MEDS: Fluticasone/Salmeterol 232-14 Inhaler 1 PUFF INHALATION ×2 (07:53→20:55)
[2021-08-29] MEDS: Umeclidinium Bromide Inhaler 1 PUFF INHALATION (07:53)
[2021-08-29 07:55] VITALS: PULSE 84
[2021-08-29] MEDS: Metoprolol Tartrate 25 MG Tablet 12.5 MG PO ×2 (07:55→20:55)
[2021-08-29] MEDS: Senna/Docusate Sodium 1 Tablet 2 TABLET PO ×2 (07:55→20:55)
[2021-08-29] MEDS: Lisinopril 2.5 MG Tablet PO (07:57)
[2021-08-29] MEDS: Clopidogrel Bisulfate 75 MG Tablet PO (07:57)
[2021-08-29] MEDS: Pantoprazole Sodium 20 MG Tablet PO (07:58)
[2021-08-29] MEDS: Amiodarone 200 MG Tablet PO (07:58)
[2021-08-29] MEDS: Aspirin E.C. 81 MG Tablet PO (07:58)
[2021-08-29] MEDS: APIXABAN 2.5 MG TABLET PO ×2 (07:58→20:55)
[2021-08-29] MEDS: Empagliflozin 10 MG Tablet PO (07:59)
[2021-08-29 08:02] VITALS: BP 118/75; PULSE 84; RESP 16; TEMP 36.2; O2SAT 99
[2021-08-29 08:03] VITALS: BP 104/68; BP 118/75; BP 85/49; PULSE 81; PULSE 82; PULSE 85
[2021-08-29] MEDS: Gabapentin 300 MG Capsule PO (08:08)
[2021-08-29 11:16] LABS: Bedside Glucose 262 mg/dL (74-106)
--- NOTE | 2021-08-29 15:34 | CHAPLAIN ---
Type of Pastoral Visit ___ Initial Visit _x__ Follow-up Visit ___ On-call Visit ___ General Patient Visit ___ Spiritual Assessment ___ Family Conference ___ Bereavement ___ Rapid Response ___ Code Blue ___ Other (describe below) Pastoral Care Referral From _x__ Patient ___ Family ___ Nurse ___ Physician ___ Wax Pourer ___ Graduate Advisor ___ Other (describe below) Sacrament/Intervention _x__ Active listening ___ Anointing ___ Gnosticist ___ Bereavement ___ Communion ___ Oma exploration ___ ___ Life review _x__ Prayer ___ Reconciliation ___ Sacrament of Sick __x_ Supportive presence ___ Wedding ___ Other (describe below) Pastoral Comments follow up visit to this patient who is sitting up in chair; pt speaks and it appears that words are coming more easily and more clearly although not always able to get out the exact words he wants; pt smiles; pt given time to talk; pt welcomes presence and prayer
[2021-08-29] MEDS: Tamsulosin HCl 0.4 MG Capsule PO (17:13)
[2021-08-29 17:20] LABS: Bedside Glucose 144 mg/dL (74-106)
[2021-08-29 20:55] VITALS: BP 116/62; PULSE 58
[2021-08-29] MEDS: Atorvastatin Calcium 80 MG Tablet PO (20:55)
[2021-08-29] MEDS: Mirtazapine 15 MG Tablet PO (20:55)
[2021-08-29] MEDS: Insulin Glargine-YFGN 100 UNIT/ML Pen 10 UNIT SC (21:10)
[2021-08-29 21:15] VITALS: BP 112/68; PULSE 57; RESP 16; TEMP 36.4; O2SAT 96
[2021-08-29 22:26] LABS: Bedside Glucose 149 mg/dL (74-106)
[2021-08-30 06:00] VITALS: BP 102/52; BP 106/50; BP 114/56; PULSE 73; PULSE 83; PULSE 88
[2021-08-30 06:36] LABS: Bedside Glucose 101 mg/dL (74-106)
[2021-08-30] MEDS: Magnesium Hydroxide 30 ML UDC PO (06:40)
[2021-08-30] MEDS: Insulin Lispro 100 UNIT/ML INSULN.PEN SC ×2 (08:07→17:38)
[2021-08-30] MEDS: Arthritis Pain Compound 60 CLICK TUBE TOPICAL ×5 (08:08→20:54)
[2021-08-30] MEDS: Amiodarone 200 MG Tablet PO (08:09)
[2021-08-30] MEDS: Aspirin E.C. 81 MG Tablet PO (08:09)
[2021-08-30] MEDS: APIXABAN 2.5 MG TABLET PO ×2 (08:09→20:55)
[2021-08-30] MEDS: Umeclidinium Bromide Inhaler 1 PUFF INHALATION (08:09)
[2021-08-30] MEDS: Fluticasone/Salmeterol 232-14 Inhaler 1 PUFF INHALATION ×2 (08:09→20:54)
[2021-08-30 08:10] VITALS: PULSE 83
[2021-08-30] MEDS: Empagliflozin 10 MG Tablet PO (08:10)
[2021-08-30] MEDS: Metoprolol Tartrate 25 MG Tablet 12.5 MG PO ×2 (08:10→20:56)
[2021-08-30] MEDS: Furosemide 20 MG Tablet PO (08:10)
[2021-08-30] MEDS: Pantoprazole Sodium 20 MG Tablet PO (08:11)
[2021-08-30] MEDS: Clopidogrel Bisulfate 75 MG Tablet PO (08:11)
[2021-08-30] MEDS: Senna/Docusate Sodium 1 Tablet 2 TABLET PO ×2 (08:12→20:55)
[2021-08-30] MEDS: Gabapentin 300 MG Capsule PO (08:33)
[2021-08-30] MEDS: Nystatin Powder 15gm Bottle 1 APPLIC TOPICAL ×2 (08:33→20:57)
[2021-08-30] MEDS: Menthol/Lanolin/Calamine/Znox 113 GM Tube 1 APPLIC TOPICAL ×2 (08:34→20:57)
[2021-08-30 08:35] VITALS: BP 111/66; PULSE 71; RESP 16; TEMP 36.1; O2SAT 99
[2021-08-30 11:15] LABS: Bedside Glucose 225 mg/dL (74-106)
--- NOTE | 2021-08-30 12:13 | PN_ITS ---
Subjective Subjective Afebrile VSS Maintaining appropriate oxygen saturation on RA Oral intake is better, he continues to eat 75 to 100% of his breakfast and lunch and 50-75% of supper. BS record was reviewed. Lunch sugar is still high today at 225 and he received 2 units of Insulin with breakfast Discussed with nursing - no problems that need addressed Reviewed the PT/OT/ST notes Medication list reviewed. Got the first dose of Flomax last night. Orthostatics were negative this AM. BP dropped later to 86 systolic. Geoffrey mckee nies lightheadedness and in fact he has better color in his face and is more alert than he has been since admission to rehab. He denies CP, SOB, palpitations, lightheadedness, cephalgia, N/V/abd pain, calf pain, suprapubic pain, painful swallowing. He has no complaints today. His brother Nicko was present in the room for rounds and his dtr Marie, niece Victorina and Padmini were listening on a conference call. Everyone was updated on his excellent progress. since last week he is now ambulating up to 45 ft with a wheeled walker, he was able to complete the TUG test in 81 sec (last week he was not walking and could not do the TUG test) and he did 6 stands in 30 sec. He is making progress with ST. Objective Data Objective Data Vital Signs: Vital Signs Temp Pulse Resp BP Pulse Ox 96.9 F L 71 16 111/66 99 08/30/21 08:35 08/30/21 08:35 08/30/21 08:35 08/30/21 08:35 08/30/21 08:35 Oxygen Delivery Method Room Air Weight: 142 lb 6.698 oz Intake & Output: Intake and Output for Last 24 Hours 08/28/21 08/29/21 08/30/21 23:59 23:59 23:59 Intake Total 1410 / 1410 1680 / 1680 360 / 360 Output Total 1850 / 1850 1500 / 1500 550 / 550 Balance -440 / -440 180 / 180 -190 / -190 Medical Nutrition Assessment Dietitian: Malnutrition Criteria Met Start: 08/20/21 10:19 Freq: Status: Active Protocol: Document 08/24/21 11:40 RMA (Rec: 08/24/21 11:40 RMA [id number]) Nutrition Malnutrition Evidence of Malnutrition Exists Yes Malnutrition (severe): Acute Illness/Injury Evidenced By Suboptimal Energy Intake ( Moderate),Weight Loss (Severe) ,Physical Changes (Moderate) Clinical Problem Acute Disease or Injury Related Malnutrition Etiology Severe protein-calorie malnutrition related to difficulty swallowing and inadequate oral intake Signs/Symptoms as evidenced by need for mech altered food consistencies, PO averaging~50% meals, 9.6% wt loss <14 days and fat/muscle loss (clavicle, acromion process, buccal/orbital/ temporal areas, upper arms) Status Active Problem Recommendation Dietitian Recommendations/Changes Will continue liberal regular diet w/ consistency/texture as per PIPE JOINTS SUPERVISOR, currently on pureed food & honey/moderately-thick liquids. Will adjust ensure pudding to with breakfast and magic cup to w/ lunch and dinner for increased nutrition if consumed. Will d/c 120 ml glucerna shake w/ medpass due to patient refusal since admit to rehab. Lab / Micro Data Result Diagrams: 08/28/21 05:10 08/28/21 05:10 Labs: Laboratory Results - last 24 hr 08/29/21 17:13: POC Glucose 144 H 08/29/21 21:09: POC Glucose 149 H 08/30/21 06:29: POC Glucose 101 08/30/21 11:10: POC Glucose 225 H Micro: Microbiology 08/19/21 23:10 Urine Catheter - Catheter Urine Culture - Final Culture exhibits no growth. Physical Exam Const alert and no apparent distress Constitutional Narrative: His face is less drawn today and has better color. He is smiling and very al ert. Making good eye contact with the person who is speaking and participating with conversation with yes and no answers. General Appearance: cooperative HEENT normocephalic Mouth: dry mucous membranes Eyes PERRL and EOMs intact bilaterally Resp normal respiratory effort and clear to auscultation bilaterally Effort and Inspection: Negative for tachypneic Auscultation: diminished lung sounds bilateral and diffuse; Negative for rales, rhonchi or wheezes Cardio Cardio Narrative: irreg irreg rhythm with controlled VR. Extremity normal capillary refill and no calf tenderness General Extremity: Negative for edema Skin General Skin Exam: no breakdown Rashes: no rashes Psych cooperative and affect normal Appearance: appropriate Attitude: calm, No withdrawn and No agitated Activity / Motor Behavior: appropriate eye contact Speech: other aphasic Assessment & Plan Assessment/Plan (1) Debility: PLAN: He has made excellent progress since last week. Will continue PT/OT/ST. (2) Arterial ischemic stroke, MCA, left, acute: PLAN: He is now on chronic anticoagulation with Eliquis. Continue the ASA and the Statin. BP is erratic. Today he is dry. Urine OP has been >>intake and the Lasix was held for 2 days and restarted at a lower dose. Will continue to monitor the I&O. Avoid hypotension due to small vessel disease in the brain, recent stroke and CM. He was started on Flomax yesterday and this coupled with the dehydration is the likely source of the low BP today, although the tilt was negative and he is asymptomatic the pressure is significantly lower than yesterday. Will give 500 cc NS over 4 hours and then run NS at 60 cc/hr for 1 liter. Recheck lab on Friday. (3) Atrial fibrillation: QUALIFIERS: Atrial fibrillation type: unspecified Qualified Code(s): I48.91 - Unspecified atrial fibrillation PLAN: Rate controlled.......with the addition of Amiodarone we were able to decrease the Metoprolol to 12.5 mg BID. I do not want to decrease this any further if possible because of the hx of CAD with multiple stents. I also do not want to discontinue the Lisinopril due to the CM/systolic CHF. Hopefully gentle hydration with resolve the low BP today. (4) Petechial hemorrhage: PLAN: CT head on Friday showed the hemorrhage (post TPA) to be stable and he was started on Eliquis (5) Dysphagia: QUALIFIERS: Dysphagia type: oropharyngeal phase Qualified Code(s): R13.12 - Dysphagia, oropharyngeal phase PLAN: Continue ST. Hale admitted today that he had been having a lot of trouble swallowing prior to the recent stroke and this is why he was not eating and he was losing weight. Appetite and intake have improved significantly. ST has started him on a Paige free water protocol. (6) Aphasia: PLAN: Expressive..receptive. continue ST (7) [place]-neglect of right side: PLAN: Improving (8) Right-sided visual neglect: PLAN: resolved (9) Acute right hemiparesis: (10) Urine retention: PLAN: started on Flomax. BP was low today due to the combined effects of Flomax and dehydration. I would really like to continue the Flomax if possible so we can try a voiding trial in 5 days. I suspect he has BPH and he may also have prostate CA because the PSA is elevated at 11.7......he will need to follow up with urology post DC. Urine in the Loera bag is starting to lighten up with hydration and he did get 20 mg of Lasix today. (11) Severe protein-calorie malnutrition: PLAN: Appetite is much improved. (12) Depression determined by examination: PLAN: Continue Remeron. He is calm, making good eye contact, eating and sleeping well, alert, smiling, motivated and appropriate.....I see no reason to increase the dose at this time. (13) Diabetic nephropathy with proteinuria: PLAN: Will D/W with the ice guard tester whether it is appropriate to start restricting protein at this time. I would like to see him follow with a booking manager for CRF and proteinuria after DC. If the family is agreeable may have Dr. Carbone see him in consult while he is in rehab to get established with her and schedule OP follow up. (14) COPD (chronic obstructive pulmonary disease): QUALIFIERS: COPD type: unspecified COPD Qualified Code(s): J44.9 - Chronic obstructive pulmonary disease, unspecified PLAN: Oxygenation is good. He has some scarring in the bases and possibly some fibrosis. No c/o SOB now that the CHF has been treated. Would recommend follow up with Pulmonary for PFT' now that he is on Amiodarone....to get a baseline. (15) Cardiomyopathy: QUALIFIERS: Cardiomyopathy type: unspecified Qualified Code(s): I42.9 - Cardiomyopathy, unspecified PLAN: May be in part due to ischemic heart disease and in part due to tachycar bev induce CM. Appreciate Dr. Bardales's consult. He may be a good candidate for Entresto going forward. It will be interesting to see if the EF improves with good HR control on the follow up ECHO. It would be good if we could get him into a regular rhythm now that he is on Amiodarone. (16) Diabetes: QUALIFIERS: Diabetes mellitus type: type 2 Diabetes mellitus emt intermediate insulin use: with emt intermediate use Diabetes mellitus complication status: with circulatory complication PLAN: I suspect he is DM 1.5. Will increase the AM Lispro to 4 units to better control the lunchtime BS. No hypoglycemia. Continue Jardiance because of the positive outcomes with pts with CAD, Cerebrovascular disease and CHF. (17) CAD (coronary artery disease): QUALIFIERS: Coronary Disease-Associated Artery/Lesion type: [place] artery [place] vs. transplanted heart: [place] heart Associated angina: without angina Qualified Code(s): I25.10 - Atherosclerotic heart disease of [place] coronary artery without angina pectoris PLAN: Continue antiplatelet agent, statin, beta-ion, MARYELLEN inhibitor. (18) Dehydration: PLAN: Gently hydrate today. (19) Chronic renal failure, stage 3a: PLAN: Plan All questions from Padmini Prajapati and Marie were answered. Nicko had no questions. A total of 1 hour was spent in the care of this pt including interview, examination, chart review and TEAM meeting with interaction with family which was the majority of the time Charges/Coding Visit Charges Inpatient E&M: 03642 Subs Hosp L3
--- NOTE | 2021-08-30 12:44 | NURSING ---
Pt metoprolol and furosemide given this AM lisinopril held due to BP being lower. approx 30 mins after medication administration pt BP rechecked and was 84/42. Spoke with dr. AGUILAR ordered and started 500 mL 0.9% Sodium Chloride to be ran at 175 mL/hr once then 1000 mL of 0.9% Sodium Chloride to be ran at 60 mL/hr. Patient tolerating well after 1 hour of administration BP increased to 110/66.
--- NOTE | 2021-08-30 12:49 | CASEMGMT ---
Social Work IDT met with patient, brother and , dtr, niece via conference call for Team meeting. Discussed patient's progress in PT/OT/ST/SN. [facility] and continued stay is not guaranteed with each review. requested referral to [facility]. Confirmed pt does have Medicaid if [employer] does not approve SNF stay. Family inquiring about completing HCPOA. IDT agrees pt is not competent enough to complete those documents at this time. The next of kin is the decision maker, which is pt's . However, team identified may not be fully cognitive intact. Reteam next week. SW to continue to follow. Janey Mejia, TEST ANALYST LICENSE INSPECTOR
[2021-08-30] MEDS: 0.9% Normal Saline 1,000 ML 60 ML IV (14:20)
[2021-08-30 16:36] LABS: Bedside Glucose 171 mg/dL (74-106)
[2021-08-30] MEDS: Tamsulosin HCl 0.4 MG Capsule PO (17:37)
[2021-08-30 20:49] VITALS: BP 122/66; PULSE 80; RESP 16; TEMP 36.4; O2SAT 96
[2021-08-30] MEDS: Insulin Glargine-YFGN 100 UNIT/ML Pen 10 UNIT SC (20:55)
[2021-08-30 20:56] VITALS: PULSE 80
[2021-08-30] MEDS: Atorvastatin Calcium 80 MG Tablet PO (20:56)
[2021-08-30] MEDS: Mirtazapine 15 MG Tablet PO (20:56)
[2021-08-30 21:40] LABS: Bedside Glucose 144 mg/dL (74-106)
[2021-08-31] MEDS: Arthritis Pain Compound 60 CLICK TUBE TOPICAL ×5 (05:22→20:20)
[2021-08-31 06:00] VITALS: BP 111/61; BP 96/69; BP 98/65
[2021-08-31 07:05] LABS: Bedside Glucose 114 mg/dL (74-106)
[2021-08-31 07:35] VITALS: BP 109/62; PULSE 68; RESP 16; TEMP 36.3; O2SAT 94
[2021-08-31] MEDS: Nystatin Powder 15gm Bottle 1 APPLIC TOPICAL ×2 (09:09→20:24)
[2021-08-31] MEDS: Menthol/Lanolin/Calamine/Znox 113 GM Tube 1 APPLIC TOPICAL ×2 (09:09→20:20)
[2021-08-31] MEDS: Lisinopril 2.5 MG Tablet PO (09:10)
[2021-08-31] MEDS: Clopidogrel Bisulfate 75 MG Tablet PO (09:10)
[2021-08-31] MEDS: Aspirin E.C. 81 MG Tablet PO (09:10)
[2021-08-31] MEDS: Umeclidinium Bromide Inhaler 1 PUFF INHALATION (09:10)
[2021-08-31] MEDS: Empagliflozin 10 MG Tablet PO (09:10)
[2021-08-31] MEDS: Pantoprazole Sodium 20 MG Tablet PO (09:10)
[2021-08-31] MEDS: Amiodarone 200 MG Tablet PO (09:10)
[2021-08-31] MEDS: Fluticasone/Salmeterol 232-14 Inhaler 1 PUFF INHALATION ×2 (09:10→20:21)
[2021-08-31] MEDS: APIXABAN 2.5 MG TABLET PO ×2 (09:10→20:21)
[2021-08-31 09:11] VITALS: PULSE 68
[2021-08-31] MEDS: Furosemide 20 MG Tablet PO (09:11)
[2021-08-31] MEDS: Senna/Docusate Sodium 1 Tablet 2 TABLET PO (09:11)
[2021-08-31] MEDS: Metoprolol Tartrate 25 MG Tablet 12.5 MG PO ×2 (09:11→20:21)
[2021-08-31] MEDS: Insulin Lispro 100 UNIT/ML INSULN.PEN SC ×2 (09:13→17:20)
[2021-08-31] MEDS: Gabapentin 300 MG Capsule PO (09:23)
[2021-08-31 11:05] LABS: Bedside Glucose 139 mg/dL (74-106)
--- NOTE | 2021-08-31 12:47 | PCM.PROGNOTE ---
Subjective Subjective Afebrile VSS-heart rate is well controlled. He was tilt negative today but the blood pressure standing was 96/69 with a MAP of 78 which is adequate and with the CM and 34% EF a lower BP is better for him unless he is symptomatic. Maintaining appropriate oxygen saturation on RA Oral intake is good Wt is up a lb today with the IV fluids he was given Discussed with nursing - no problems that need addressed Reviewed the PT/OT/ST notes Medication list reviewed. The blood sugar record was reviewed. The at bedtime blood sugar yesterday was 144 and the FBS today is 114. Blood sugar at lunchtime today with the increase in the lispro to 4 units every morning is 139. He has had no hypoglycemia. Geoffrey denies chest pain, shortness of breath, lightheadedness, nausea. Review of systems is difficult because he is aphasic, expressive greater than receptive. Objective Data Objective Data Vital Signs: Vital Signs Temp Pulse Resp BP Pulse Ox 97.3 F L 68 16 109/62 94 08/31/21 07:35 08/31/21 09:11 08/31/21 07:35 08/31/21 07:35 08/31/21 07:35 Oxygen Delivery Method Room Air Weight: 143 lb 4.807 oz Intake & Output: Intake and Output for Last 24 Hours 08/29/21 08/30/21 08/31/21 23:59 23:59 23:59 Intake Total 1680 / 1680 1700 / 1700 720 / 720 Output Total 1500 / 1500 1800 / 1800 700 / 700 Balance 180 / 180 -100 / -100 Medical Nutrition Assessment Dietitian: Malnutrition Criteria Met Start: 08/20/21 10:19 Freq: Status: Active Protocol: Document 08/24/21 11:40 RMA (Rec: 08/24/21 11:40 RMA [id number]) Nutrition Malnutrition Evidence of Malnutrition Exists Yes Malnutrition (severe): Acute Illness/Injury Evidenced By Suboptimal Energy Intake ( Moderate),Weight Loss (Severe) ,Physical Changes (Moderate) Clinical Problem Acute Disease or Injury Related Malnutrition Etiology Severe protein-calorie malnutrition related to difficulty swallowing and inadequate oral intake Signs/Symptoms as evidenced by need for mech altered food consistencies, PO averaging~50% meals, 9.6% wt loss <14 days and fat/muscle loss (clavicle, acromion process, buccal/orbital/ temporal areas, upper arms) Status Active Problem Recommendation Dietitian Recommendations/Changes Will continue liberal regular diet w/ consistency/texture as per BROTH SETTER, currently on pureed food & honey/moderately-thick liquids. Will adjust ensure pudding to with breakfast and magic cup to w/ lunch and dinner for increased nutrition if consumed. Will d/c 120 ml glucerna shake w/ medpass due to patient refusal since admit to rehab. Lab / Micro Data Result Diagrams: 08/28/21 05:10 09/01/21 08:00 Labs: Laboratory Results - last 24 hr 08/30/21 16:32: POC Glucose 171 H 08/30/21 20:52: POC Glucose 144 H 08/31/21 07:02: POC Glucose 114 H 08/31/21 11:02: POC Glucose 139 H Micro: Microbiology 08/19/21 23:10 Urine Catheter - Catheter Urine Culture - Final Culture exhibits no growth. Physical Exam Const alert General Appearance: cooperative HEENT normocephalic and moist oral mucous membranes Eyes PERRL and EOMs intact bilaterally Resp normal respiratory effort Resp Narrative: Breath sounds are diminished throughout but he is clear to auscultation. Neck and has no accessory muscle use. He is speaking only 1-2 words at a time due to the aphasia. Cardio Cardio Narrative: Irregular irregular with a controlled ventricular response. GI normal to inspection, nondistended, normoactive bowel sounds and soft to palpation GI Narrative: No guarding with palpation Extremity no calf tenderness Extremity Narrative: No ankle edema Skin General Skin Exam: no breakdown Rashes: no rashes Neuro CN's II-XII intact bilaterally Neuro Narrative: Weakness in the right upper extremity is improving and he is ambulating up to 95 feet with a front wheeled walker at standby assist. He is standing lara,l has a reciprocal william and has no loss of balance. Still requiring max assist for LB dressing. Psych cooperative Appearance: appropriate Assessment & Plan Assessment/Plan (1) Arterial ischemic stroke, MCA, left, acute: PLAN: received TPA (2) Petechial hemorrhage: PLAN: Follow-up noncontrast CT brain revealed no change in the petechial hemorrhage and he was started on Eliquis 2.5 mg p.o. twice daily. (3) Urine retention: PLAN: Does not have urinary incontinence.....only retention. PSA is elevated at 11. (4) Severe protein-calorie malnutrition: PLAN: Eating much better. (5) Aphasia: PLAN: Continue ST (6) Dysphagia: QUALIFIERS: Dysphagia type: oropharyngeal phase Qualified Code(s): R13.12 - Dysphagia, oropharyngeal phase (7) Acute right hemiparesis: PLAN: continue PT/OT - he is making very good progress (8) Chronic renal failure, stage 3a: PLAN: stable (9) Cardiomyopathy: QUALIFIERS: Cardiomyopathy type: unspecified Qualified Code(s): I42.9 - Cardiomyopathy, unspecified PLAN: No sx or findings of CHF. Charges/Coding Visit Charges Inpatient E&M: 36185 Subs Hosp L2
--- NOTE | 2021-08-31 13:51 | CASEMGMT ---
Social Work Received call from pt's PASSPORT CM from [facility]. CM [phone]. CM states pt was receiving MOW and medical alert. Pt was approved for 11hrs/wk of aides, but pt/ did not choose to receive aides as son was assisting prior. CM explained to SW and that if pt is an a facility for 90 days, pt will be disenrolled. However, if pt returns to the community, passport can be restarted and pt will have a new assessment to determine his needs. If pt returns home prior to 90 days, CM can work to get HAND DRAWER IN instated, if pt/ are agreeable. SW to continue to follow. BRIAN Jensen SUPERVISOR PASTE MIXING
[2021-08-31 16:16] LABS: Bedside Glucose 143 mg/dL (74-106)
[2021-08-31] MEDS: Tamsulosin HCl 0.4 MG Capsule PO (17:20)
[2021-08-31] MEDS: Bisacodyl 10 MG Suppository RC (18:29)
[2021-08-31 19:04] VITALS: BP 113/64; PULSE 62; RESP 18; TEMP 36.6; O2SAT 100
[2021-08-31] MEDS: Mirtazapine 15 MG Tablet PO (20:19)
[2021-08-31 20:21] VITALS: BP 113/64; PULSE 62
[2021-08-31] MEDS: Atorvastatin Calcium 80 MG Tablet PO (20:21)
[2021-08-31 21:01] LABS: Bedside Glucose 125 mg/dL (74-106)
[2021-08-31] MEDS: Insulin Glargine-YFGN 100 UNIT/ML Pen 10 UNIT SC (21:04)
[2021-08-31 22:00] VITALS: O2SAT 100
--- NOTE | 2021-08-31 23:30 | NURSING ---
PT GIVEN 750 ML OF SOAP SUDS ENEMA INCREMENTALLY AND PT WITH VERY POOR RETENTION OF ENEMA. PT TOLERATES PROCEDURE WELL. PT PASSES LARGE AMT SOFT BROWN STOOL SOON AFTER COMPLETING ENEMA ONTO BED AND THEN ADDITIONALLY WHILE SITTING ON BSC. PT FEELS MORE COMFORTABLE AFTER BM.
[2021-09-01 04:53] VITALS: BP 100/65; BP 104/49; BP 109/56; PULSE 73; PULSE 75; PULSE 80
[2021-09-01] MEDS: Arthritis Pain Compound 60 CLICK TUBE TOPICAL ×6 (05:03→21:32)
[2021-09-01] MEDS: 0.9% Saline Lock 10 ML Syringe IV (05:03)
[2021-09-01 06:36] LABS: Bedside Glucose 127 mg/dL (74-106)
[2021-09-01 08:14] VITALS: BP 109/56; PULSE 68; RESP 16; TEMP 36.5; O2SAT 97
[2021-09-01 08:33] LABS: Anion Gap 6 (5-15); BUN 25 mg/dL (7-18); Calcium,Total 8.9 mg/dL (8.5-10.1); Chloride 100 mmol/L (98-107); Creatinine, Serum 1.39 mg/dL (0.70-1.30); EST Glomerular Filtration Rate 53 mL/min (>60); Est Glom Filt Rate - Afr Amer 65 mL/min (>60); Estimated Creatinine Clearance 45.85 ml/min; Glucose 130 mg/dL (74-106); Potassium 4.8 mmol/L (3.5-5.1); Sodium Level 132 mmol/L (136-145)
[2021-09-01] MEDS: Aspirin E.C. 81 MG Tablet PO (08:39)
[2021-09-01] MEDS: Insulin Lispro 100 UNIT/ML INSULN.PEN SC ×2 (08:40→18:04)
[2021-09-01] MEDS: Menthol/Lanolin/Calamine/Znox 113 GM Tube 1 APPLIC TOPICAL ×2 (08:40→21:31)
[2021-09-01] MEDS: Umeclidinium Bromide Inhaler 1 PUFF INHALATION (08:42)
[2021-09-01] MEDS: APIXABAN 2.5 MG TABLET PO ×2 (08:42→21:29)
[2021-09-01] MEDS: Amiodarone 200 MG Tablet PO (08:42)
[2021-09-01] MEDS: Fluticasone/Salmeterol 232-14 Inhaler 1 PUFF INHALATION ×2 (08:42→21:30)
[2021-09-01 08:43] VITALS: BP 109/56; PULSE 68
[2021-09-01] MEDS: Empagliflozin 10 MG Tablet PO (08:43)
[2021-09-01] MEDS: Furosemide 20 MG Tablet PO (08:43)
[2021-09-01] MEDS: Metoprolol Tartrate 25 MG Tablet 12.5 MG PO (08:43)
[2021-09-01] MEDS: Nystatin Powder 15gm Bottle 1 APPLIC TOPICAL ×2 (08:44→21:31)
[2021-09-01] MEDS: Pantoprazole Sodium 20 MG Tablet PO (09:03)
[2021-09-01] MEDS: Clopidogrel Bisulfate 75 MG Tablet PO (09:03)
[2021-09-01] MEDS: Senna/Docusate Sodium 1 Tablet 2 TABLET PO ×2 (09:04→21:26)
[2021-09-01] MEDS: Lisinopril 2.5 MG Tablet PO (09:04)
[2021-09-01] MEDS: Gabapentin 300 MG Capsule PO (09:19)
[2021-09-01 11:07] LABS: Bedside Glucose 198 mg/dL (74-106)
[2021-09-01 16:36] LABS: Bedside Glucose 158 mg/dL (74-106)
[2021-09-01] MEDS: Tamsulosin HCl 0.4 MG Capsule PO (18:01)
[2021-09-01 19:30] VITALS: BP 97/50; PULSE 62; RESP 16; TEMP 36.6; O2SAT 98
[2021-09-01] MEDS: Mirtazapine 15 MG Tablet PO (21:26)
[2021-09-01] MEDS: Atorvastatin Calcium 80 MG Tablet PO (21:26)
[2021-09-01 21:28] VITALS: BP 97/50; PULSE 62
[2021-09-01] MEDS: Insulin Glargine-YFGN 100 UNIT/ML Pen 10 UNIT SC (21:29)
[2021-09-01 21:45] LABS: Bedside Glucose 161 mg/dL (74-106)
[2021-09-01 22:00] VITALS: O2SAT 98
[2021-09-02] VITALS (7 sets, daily range): BP systolic 101–124; BP diastolic 55–65; PULSE 60–79; RESP 14–16; TEMP 36.3; O2SAT 97–99
--- NOTE | 2021-09-02 04:36 | NURSING ---
Reviewed and agree with REVENUE CYCLE SPECIALIST documentation and assessment charting.
[2021-09-02] MEDS: Arthritis Pain Compound 60 CLICK TUBE TOPICAL ×4 (05:36→21:15)
[2021-09-02 06:51] LABS: Bedside Glucose 118 mg/dL (74-106)
[2021-09-02] MEDS: Aspirin E.C. 81 MG Tablet PO (09:36)
[2021-09-02] MEDS: Insulin Lispro 100 UNIT/ML INSULN.PEN SC ×2 (09:36→17:47)
[2021-09-02] MEDS: APIXABAN 2.5 MG TABLET PO ×2 (09:37→21:19)
[2021-09-02] MEDS: Pantoprazole Sodium 20 MG Tablet PO (09:37)
[2021-09-02] MEDS: Clopidogrel Bisulfate 75 MG Tablet PO (09:37)
[2021-09-02] MEDS: Furosemide 20 MG Tablet PO (09:38)
[2021-09-02] MEDS: Empagliflozin 10 MG Tablet PO (09:38)
[2021-09-02] MEDS: Amiodarone 200 MG Tablet PO (09:38)
[2021-09-02] MEDS: Metoprolol Tartrate 25 MG Tablet 12.5 MG PO ×2 (09:40→21:21)
[2021-09-02] MEDS: Gabapentin 300 MG Capsule PO (09:40)
[2021-09-02] MEDS: Fluticasone/Salmeterol 232-14 Inhaler 1 PUFF INHALATION ×2 (09:41→21:20)
[2021-09-02] MEDS: Senna/Docusate Sodium 1 Tablet 2 TABLET PO ×2 (09:41→21:21)
[2021-09-02] MEDS: Umeclidinium Bromide Inhaler 1 PUFF INHALATION (09:41)
--- NOTE | 2021-09-02 10:01 | NURSING ---
Called pharmacy reordered Incruse Ellipta. Patient given medications, tolerated overall well. Given oral care and tolerated well.
[2021-09-02 11:11] LABS: Bedside Glucose 219 mg/dL (74-106)
[2021-09-02 16:06] LABS: Bedside Glucose 167 mg/dL (74-106)
[2021-09-02] MEDS: Tamsulosin HCl 0.4 MG Capsule PO (17:47)
[2021-09-02] MEDS: Mirtazapine 15 MG Tablet PO (21:13)
[2021-09-02] MEDS: Menthol/Lanolin/Calamine/Znox 113 GM Tube 1 APPLIC TOPICAL (21:19)
[2021-09-02] MEDS: Insulin Glargine-YFGN 100 UNIT/ML Pen 10 UNIT SC (21:20)
[2021-09-02] MEDS: Atorvastatin Calcium 80 MG Tablet PO (21:21)
[2021-09-02] MEDS: Nystatin Powder 15gm Bottle 1 APPLIC TOPICAL (21:22)
[2021-09-02 21:26] LABS: Bedside Glucose 129 mg/dL (74-106)
[2021-09-03] MEDS: Arthritis Pain Compound 60 CLICK TUBE TOPICAL ×5 (04:54→21:49)
[2021-09-03 06:40] LABS: Bedside Glucose 102 mg/dL (74-106)
[2021-09-03 07:40] VITALS: PULSE 70
[2021-09-03] MEDS: Metoprolol Tartrate 25 MG Tablet 12.5 MG PO ×2 (07:40→21:51)
[2021-09-03] MEDS: Clopidogrel Bisulfate 75 MG Tablet PO (07:41)
[2021-09-03] MEDS: Empagliflozin 10 MG Tablet PO (07:41)
[2021-09-03] MEDS: Amiodarone 200 MG Tablet PO (07:41)
[2021-09-03] MEDS: Pantoprazole Sodium 20 MG Tablet PO (07:41)
[2021-09-03] MEDS: APIXABAN 2.5 MG TABLET PO ×2 (07:42→21:50)
[2021-09-03] MEDS: Aspirin E.C. 81 MG Tablet PO (07:42)
[2021-09-03] MEDS: Furosemide 20 MG Tablet PO (07:42)
[2021-09-03] MEDS: Menthol/Lanolin/Calamine/Znox 113 GM Tube 1 APPLIC TOPICAL ×2 (07:46→22:56)
[2021-09-03] MEDS: Umeclidinium Bromide Inhaler 1 PUFF INHALATION (07:46)
[2021-09-03] MEDS: Fluticasone/Salmeterol 232-14 Inhaler 1 PUFF INHALATION ×2 (07:46→21:50)
[2021-09-03] MEDS: Nystatin Powder 15gm Bottle 1 APPLIC TOPICAL ×2 (07:47→21:57)
[2021-09-03] MEDS: Gabapentin 300 MG Capsule PO (07:48)
[2021-09-03] MEDS: Lisinopril 2.5 MG Tablet PO (07:49)
[2021-09-03] MEDS: Insulin Lispro 100 UNIT/ML INSULN.PEN SC ×2 (07:50→17:27)
[2021-09-03 08:00] VITALS: BP 125/68; PULSE 75; RESP 16; TEMP 36.1; O2SAT 98
[2021-09-03 08:14] VITALS: BP 110/68; BP 117/63; BP 120/68; PULSE 68; PULSE 72; PULSE 77
--- NOTE | 2021-09-03 10:21 | PN_ITS ---
Subjective Subjective Afebrile VSS - Tilt negative today. Maintaining appropriate oxygen saturation on RA Oral intake is good -he ate most of his plate this morning for breakfast. He is taking in adequate fluid intake. weight is slowly increasing with the improvement in his intake He is sleeping well The blood sugar record was reviewed. The lunchtime sugar is still a little high. No hypoglycemia. Discussed with nursing - no problems that need addressed Reviewed the PT/OT/ST notes Medication list reviewed. Has had 6 doses of Flomax. Denies lightheadedness. He was sitting at the edge of the mat when I saw him in the therapy room and he was able to maintain seated balance without assist. He also denies CP, SOB, palpitations, N/V/abd pain. Agrees that his appetite is good now. Sleeping well. Denies muscle aches or joint pains. No dysuria. The urine in the Loera bag is pale and clear today. Objective Data Objective Data Vital Signs: Vital Signs Temp Pulse Resp BP Pulse Ox 96.9 F L 77 16 120/68 98 09/03/21 08:00 09/03/21 08:14 09/03/21 08:00 09/03/21 08:14 09/03/21 08:00 Oxygen Delivery Method Room Air Weight: 146 lb 6.191 oz Intake & Output: Intake and Output for Last 24 Hours 09/01/21 09/02/21 09/03/21 23:59 23:59 23:59 Intake Total 1290 / 1290 1460 / 1460 600 / 600 Output Total 2550 / 2550 2450 / 2450 400 / 400 Balance -1260 / -1260 -990 / -990 200 / 200 Medical Nutrition Assessment Dietitian: Malnutrition Criteria Met Start: 08/20/21 10: 19 Freq: Status: Active Protocol: Document 08/31/21 16:09 (Rec: 08/31/21 16:09 [id number]) Nutrition Malnutrition Evidence of Malnutrition Exists Yes Malnutrition (severe): Acute Illness/Injury Evidenced By Suboptimal Energy Intake ( Severe),Weight Loss (Severe), Physical Changes (Moderate) Clinical Problem Acute Disease or Injury Related Malnutrition Etiology Severe protein-calorie malnutrition related to difficulty swallowing and inadequate oral intake Signs/Symptoms PO intake 50% or less of estimated energy needs at meals meals; unintentional 13% wt loss >2 weeks; fat/muscle loss per physical exam ( clavicle, acromion process, buccal/orbital/temporal areas, upper arms); BMI 19.4 Status Active Problem Recommendation Dietitian Recommendations/Changes Will continue liberal regular diet w/ consistency/texture as per DAIRY MANAGEMENT SPECIALIST. Will continue ensure pudding to with breakfast and magic cup to w/ lunch and dinner for increased nutrition if consumed. Lab / Micro Data Result Diagrams: 08/28/21 05:10 09/01/21 08:00 Labs: Laboratory Results - last 24 hr 09/02/21 11:06: POC Glucose 219 H 09/02/21 16:00: POC Glucose 167 H 09/02/21 21:19: POC Glucose 129 H 09/03/21 06:38: POC Glucose 102 Micro: Microbiology 08/19/21 23:10 Urine Catheter - Catheter Urine Culture - Final Culture exhibits no growth. Physical Exam Const alert and no apparent distress Constitutional Narrative: Looks comfortable and he is very alert and doing everything that is asked of him in therapy. General Appearance: cooperative HEENT normocephalic HEENT Narrative: Still unable to protrude his tongue. He has his dentures in now. Eyes PERRL and EOMs intact bilaterally Eyes Narrative: No scleral icterus, no conjunctival injection and no purulent eye discharge. Neck No nuchal rigidity, supple and No nodes General: trachea midline Resp normal respiratory effort Resp Narrative: Air exchange is better than it was at admission and I can now hear better breath sounds in the bases. There is no wheezing, rhonchi or rails. He is not tachypneic. Cardio Cardio Narrative: Irregular irregular with controlled ventricular response. GI normal to inspection, nondistended, normoactive bowel sounds, soft to palpation and non-tender GI Narrative: No guarding with palpation Extremity no calf tenderness General Extremity: Negative for edema Skin General Skin Exam: no breakdown Rashes: no rashes Neuro CN's II-XII intact bilaterally Neuro Narrative: The R side neglect is much better. He is still weak on the R side however he is getting stronger and doing better with ambulation. He is using a platform walker because he has difficulty keeping the R hand on the walker. The R leg is stronger than the R arm. No tremors. Talking more. Still with speech apraxia.......knows what he wants to say but, just can not get it out. Psych cooperative and affect normal Appearance: appropriate Mood & Affect: Negative for depressed, anxious or flat affect Assessment & Plan Assessment/Plan (1) Arterial ischemic stroke, MCA, left, acute: PLAN: Embolic. He is now on Eliquis with no bleeding problems. CT of the Head prior to starting the Eliquis showed no change in the petechiae after he received TPA. (2) Petechial hemorrhage: PLAN: Stable (3) Aphasia: PLAN: Improving. He is able to speak more and the receptive aphasia has always been less than the expressive. (4) Dysphagia: QUALIFIERS: Dysphagia type: oropharyngeal phase Qualified Code(s): R13.12 - Dysphagia, oropharyngeal phase PLAN: this predted the stroke and is at least in part the cause of the severe malnutrition. He is doing very well with thickened liquids and he was recently advance to minced and moist. (5) Acute right hemiparesis: PLAN: continue PT/OT.....He is ambulating with a platform walker and is standing much more upright and is advancing both feet without assist. (6) Severe protein-calorie malnutrition: PLAN: Eating well now and wt is gradually increasing (7) Urine retention: PLAN: Will DC the Loera today since he has had 6 doses of Flomax and restart post void residual. (8) Depression determined by examination: PLAN: Continue the current dose of Remeron.......he is sleeping well, eating much better, making good eye contact and does everything asked of him with no complaint. (9) Chronic renal failure, stage 3a: PLAN: stable (10) Atrial fibrillation: QUALIFIERS: Atrial fibrillation type: unspecified Qualified Code(s): I48.91 - Unspecified atrial fibrillation PLAN: rate controlled. (11) Cardiomyopathy: QUALIFIERS: Cardiomyopathy type: unspecified Qualified Code(s): I42.9 - Cardiomyopathy, unspecified PLAN: stable (12) Hypertension: QUALIFIERS: Hypertension type: primary hypertension Qualified Co de(s): I10 - Essential (primary) hypertension PLAN: controlled with no dizziness PLAN: Plan 1. Increase the a.m. lispro to 5 units with breakfast. Continue to monitor blood sugars 4 times daily. 2. Continue therapy. 3. With a couple more weeks of therapy I suspect he may be able to go home with [facility]. Will need to follow up with cardiology and neurology. Charges/Coding Visit Charges Inpatient E&M: 71218 Subs Hosp L2
[2021-09-03 12:11] LABS: Bedside Glucose 120 mg/dL (74-106)
[2021-09-03 17:16] LABS: Bedside Glucose 120 mg/dL (74-106)
[2021-09-03] MEDS: Tamsulosin HCl 0.4 MG Capsule PO (17:27)
[2021-09-03 19:32] VITALS: BP 128/68; PULSE 63; RESP 16; TEMP 36.4; O2SAT 99
[2021-09-03] MEDS: Mirtazapine 15 MG Tablet PO (21:49)
[2021-09-03 21:51] VITALS: PULSE 82
[2021-09-03] MEDS: Atorvastatin Calcium 80 MG Tablet PO (21:51)
[2021-09-03] MEDS: Senna/Docusate Sodium 1 Tablet 2 TABLET PO (21:52)
[2021-09-03 22:00] VITALS: PULSE 63; RESP 16; O2SAT 96
[2021-09-03] MEDS: Insulin Glargine-YFGN 100 UNIT/ML Pen 10 UNIT SC (22:00)
[2021-09-03 22:21] LABS: Bedside Glucose 133 mg/dL (74-106)
[2021-09-04 06:00] VITALS: BP 103/60; BP 108/63; BP 99/63; PULSE 74; PULSE 82; PULSE 96
[2021-09-04] MEDS: Arthritis Pain Compound 60 CLICK TUBE TOPICAL ×5 (06:29→20:05)
[2021-09-04 07:05] LABS: Bedside Glucose 98 mg/dL (74-106)
[2021-09-04 07:17] VITALS: BP 124/60; PULSE 68; RESP 16; TEMP 36.1; O2SAT 98
[2021-09-04 08:09] VITALS: BP 124/60; PULSE 68
[2021-09-04] MEDS: Lisinopril 2.5 MG Tablet PO (08:09)
[2021-09-04] MEDS: Clopidogrel Bisulfate 75 MG Tablet PO (08:09)
[2021-09-04] MEDS: Amiodarone 200 MG Tablet PO (08:09)
[2021-09-04] MEDS: Gabapentin 300 MG Capsule PO (08:09)
[2021-09-04] MEDS: Aspirin E.C. 81 MG Tablet PO (08:09)
[2021-09-04] MEDS: Pantoprazole Sodium 20 MG Tablet PO (08:09)
[2021-09-04] MEDS: Metoprolol Tartrate 25 MG Tablet 12.5 MG PO ×2 (08:09→21:39)
[2021-09-04] MEDS: Furosemide 20 MG Tablet PO (08:09)
[2021-09-04] MEDS: APIXABAN 2.5 MG TABLET PO ×2 (08:09→21:40)
[2021-09-04] MEDS: Fluticasone/Salmeterol 232-14 Inhaler 1 PUFF INHALATION ×2 (08:10→21:40)
[2021-09-04] MEDS: Empagliflozin 10 MG Tablet PO (08:10)
[2021-09-04] MEDS: Umeclidinium Bromide Inhaler 1 PUFF INHALATION (08:10)
[2021-09-04] MEDS: Insulin Lispro 100 UNIT/ML INSULN.PEN SC ×2 (08:11→17:09)
[2021-09-04] MEDS: Senna/Docusate Sodium 1 Tablet 2 TABLET PO ×2 (08:12→20:05)
[2021-09-04] MEDS: Menthol/Lanolin/Calamine/Znox 113 GM Tube 1 APPLIC TOPICAL ×2 (09:20→20:06)
[2021-09-04] MEDS: Nystatin Powder 15gm Bottle 1 APPLIC TOPICAL ×2 (09:21→21:38)
--- NOTE | 2021-09-04 09:38 | CASEMGMT ---
Social Work Referral made to [facility] in [place]. Janey Mejia, LIBRARY MANAGER COMMERCIAL RELIEF DRIVER
--- NOTE | 2021-09-04 10:14 | NURSING ---
pt st cathed for 500cc. up to chair for speech therapy. bed changed out d/t head of bed not working.
[2021-09-04 12:00] LABS: Bedside Glucose 159 mg/dL (74-106)
[2021-09-04 16:31] LABS: Bedside Glucose 164 mg/dL (74-106)
[2021-09-04] MEDS: Tamsulosin HCl 0.4 MG Capsule PO (17:10)
[2021-09-04 19:36] VITALS: BP 109/60; PULSE 63; RESP 14; TEMP 36.3; O2SAT 99
[2021-09-04] MEDS: Atorvastatin Calcium 80 MG Tablet PO (20:05)
[2021-09-04] MEDS: Mirtazapine 15 MG Tablet PO (20:05)
[2021-09-04 21:39] VITALS: BP 109/60; PULSE 63
[2021-09-04] MEDS: Insulin Glargine-YFGN 100 UNIT/ML Pen 10 UNIT SC (21:42)
[2021-09-04 21:55] LABS: Bedside Glucose 161 mg/dL (74-106)
[2021-09-05 06:15] LABS: Bedside Glucose 118 mg/dL (74-106)
[2021-09-05] MEDS: Arthritis Pain Compound 60 CLICK TUBE TOPICAL ×4 (06:15→20:54)
[2021-09-05 07:57] VITALS: BP 109/55; PULSE 75; RESP 12; TEMP 36.6; O2SAT 97
[2021-09-05] MEDS: Aspirin E.C. 81 MG Tablet PO (08:05)
[2021-09-05] MEDS: Insulin Lispro 100 UNIT/ML INSULN.PEN SC ×2 (08:07→16:41)
[2021-09-05] MEDS: Umeclidinium Bromide Inhaler 1 PUFF INHALATION (09:55)
[2021-09-05] MEDS: Amiodarone 200 MG Tablet PO (09:55)
[2021-09-05] MEDS: Gabapentin 300 MG Capsule PO (09:55)
[2021-09-05] MEDS: Empagliflozin 10 MG Tablet PO (09:55)
[2021-09-05] MEDS: APIXABAN 2.5 MG TABLET PO ×2 (09:55→20:55)
[2021-09-05] MEDS: Fluticasone/Salmeterol 232-14 Inhaler 1 PUFF INHALATION ×2 (09:55→20:54)
[2021-09-05] MEDS: Pantoprazole Sodium 20 MG Tablet PO (09:55)
[2021-09-05 09:56] VITALS: PULSE 76
[2021-09-05] MEDS: Clopidogrel Bisulfate 75 MG Tablet PO (09:56)
[2021-09-05] MEDS: Metoprolol Tartrate 25 MG Tablet 12.5 MG PO ×2 (09:56→21:00)
[2021-09-05] MEDS: Senna/Docusate Sodium 1 Tablet 2 TABLET PO ×2 (09:57→20:50)
[2021-09-05] MEDS: Lisinopril 2.5 MG Tablet PO (09:57)
[2021-09-05] MEDS: Furosemide 20 MG Tablet PO (09:57)
[2021-09-05] MEDS: Menthol/Lanolin/Calamine/Znox 113 GM Tube 1 APPLIC TOPICAL ×2 (10:08→20:55)
[2021-09-05] MEDS: Nystatin Powder 15gm Bottle 1 APPLIC TOPICAL ×2 (10:08→20:56)
[2021-09-05 12:21] LABS: Bedside Glucose 128 mg/dL (74-106)
[2021-09-05] MEDS: Tamsulosin HCl 0.4 MG Capsule PO (16:46)
[2021-09-05 16:56] LABS: Bedside Glucose 106 mg/dL (74-106)
[2021-09-05 20:15] VITALS: BP 103/52; PULSE 65; RESP 18; TEMP 36.5; O2SAT 97
[2021-09-05] MEDS: Atorvastatin Calcium 80 MG Tablet PO (20:54)
[2021-09-05] MEDS: Mirtazapine 15 MG Tablet PO (20:55)
[2021-09-05 21:00] VITALS: BP 103/52; PULSE 65
[2021-09-05 21:16] LABS: Bedside Glucose 127 mg/dL (74-106)
[2021-09-05] MEDS: Insulin Glargine-YFGN 100 UNIT/ML Pen 10 UNIT SC (21:22)
[2021-09-06 06:00] VITALS: BP 116/69; BP 93/56; BP 97/55; PULSE 66; PULSE 72; PULSE 79
[2021-09-06] MEDS: Arthritis Pain Compound 60 CLICK TUBE TOPICAL ×5 (06:33→21:06)
[2021-09-06 06:41] LABS: Bedside Glucose 89 mg/dL (74-106)
--- NOTE | 2021-09-06 06:51 | NURSING ---
pt offered po fluids when staff was in the room and refused stating that he was good. compliant with oral care. stated that pt was a coffee drinker and was given this am to get fluid in the patient
[2021-09-06 07:33] VITALS: BP 116/69; PULSE 72; RESP 18; TEMP 36.3; O2SAT 99
[2021-09-06] MEDS: Insulin Lispro 100 UNIT/ML INSULN.PEN SC ×2 (07:50→17:06)
[2021-09-06] MEDS: Aspirin E.C. 81 MG Tablet PO (07:50)
[2021-09-06] MEDS: APIXABAN 2.5 MG TABLET PO ×2 (10:09→21:06)
[2021-09-06] MEDS: Senna/Docusate Sodium 1 Tablet 2 TABLET PO ×2 (10:09→21:06)
[2021-09-06 10:10] VITALS: PULSE 76
[2021-09-06] MEDS: Metoprolol Tartrate 25 MG Tablet 12.5 MG PO ×2 (10:10→21:10)
[2021-09-06] MEDS: Pantoprazole Sodium 20 MG Tablet PO (10:10)
[2021-09-06] MEDS: Clopidogrel Bisulfate 75 MG Tablet PO (10:11)
[2021-09-06] MEDS: Umeclidinium Bromide Inhaler 1 PUFF INHALATION (10:11)
[2021-09-06] MEDS: Lisinopril 2.5 MG Tablet PO (10:11)
[2021-09-06] MEDS: Amiodarone 200 MG Tablet PO (10:11)
[2021-09-06] MEDS: Furosemide 20 MG Tablet PO (10:11)
[2021-09-06] MEDS: Fluticasone/Salmeterol 232-14 Inhaler 1 PUFF INHALATION ×2 (10:12→21:05)
[2021-09-06] MEDS: Empagliflozin 10 MG Tablet PO (10:12)
[2021-09-06] MEDS: Nystatin Powder 15gm Bottle 1 APPLIC TOPICAL ×2 (10:16→21:07)
[2021-09-06] MEDS: Gabapentin 300 MG Capsule PO (10:16)
[2021-09-06] MEDS: Menthol/Lanolin/Calamine/Znox 113 GM Tube 1 APPLIC TOPICAL ×2 (10:16→21:07)
[2021-09-06 11:21] LABS: Bedside Glucose 108 mg/dL (74-106)
--- NOTE | 2021-09-06 12:09 | PCM.PROGNOTE ---
Subjective Subjective Geoffrey was seen on TEAM rounds today and Marie Washington and Victorina participated via a conference call. Afebrile VSS Maintaining appropriate oxygen saturation on RA Oral intake is good. Blood sugar record was reviewed. Blood sugars are under excellent control with no hypoglycemia. Weight is stable at 146-147. Intake and output have been approximately even over the past few days. Discussed with nursing - no problems that need addressed Reviewed the PT/OT/ST notes. ST wants to repeat a MBS with Geoffrey tomorrow. Medication list reviewed. Geoffrey is sleeping well. He denies pain. He denies lightheadedness. No N/V/D/C/abd pain. He is still retaining urine and we have been intermittently catheterizing. The stream is slow. He is on Flomax. Denies pelvic, suprapubic or flank pain. He is able to lie flat in bed without SOB. Objective Data Objective Data Vital Signs: Vital Signs Temp Pulse Resp BP Pulse Ox 97.4 F L 76 18 116/69 99 09/06/21 07:33 09/06/21 10:10 09/06/21 07:33 09/06/21 07:33 09/06/21 07:33 Oxygen Delivery Method Room Air Weight: 146 lb 2.664 oz Intake & Output: Intake and Output for Last 24 Hours 09/04/21 09/05/21 09/06/21 23:59 23:59 23:59 Intake Total 2100 / 2100 1680 / 1680 360 / 360 Output Total 2250 / 2750 1525 / 1950 825 / 825 Balance -150 / -650 155 / -270 -465 / -465 Medical Nutrition Assessment Dietitian: Malnutrition Criteria Met Start: 08/20/21 10:19 Freq: Status: Active Protocol: Document 08/31/21 16:09 (Rec: 08/31/21 16:09 [id number]) Nutrition Malnutrition Evidence of Malnutrition Exists Yes Malnutrition (severe): Acute Illness/Injury Evidenced By Suboptimal Energy Intake ( Severe),Weight Loss (Severe), Physical Changes (Moderate) Clinical Problem Acute Disease or Injury Related Malnutrition Etiology Severe protein-calorie malnutrition related to difficulty swallowing and inadequate oral intake Signs/Symptoms PO intake 50% or less of estimated energy needs at meals meals; unintentional 13% wt loss >2 weeks; fat/muscle loss per physical exam ( clavicle, acromion process, buccal/orbital/temporal areas, upper arms); BMI 19.4 Status Active Problem Recommendation Dietitian Recommendations/Changes Will continue liberal regular diet w/ consistency/texture as per BARBERING TEACHER. Will continue ensure pudding to with breakfast and magic cup to w/ lunch and dinner for increased nutrition if consumed. Lab / Micro Data Result Diagrams: 09/07/21 05:13 09/07/21 05:13 Labs: Laboratory Results - last 24 hr 09/05/21 12:08: POC Glucose 128 H 09/05/21 16:44: POC Glucose 106 09/05/21 21:12: POC Glucose 127 H 09/06/21 06:25: POC Glucose 89 09/06/21 11:18: POC Glucose 108 H Micro: Microbiology 08/19/21 23:10 Urine Catheter - Catheter Urine Culture - Final Culture exhibits no growth. Physical Exam Const alert and no apparent distress Constitutional Narrative: making good eye contact. General Appearance: cooperative Resp normal respiratory effort Resp Narrative: Lying flat in bed on his side with no SOB. Auscultation: diminished lung sounds; Negative for rales, rhonchi or wheezes Cardio no gallops Cardio Narrative: Irreg Irreg with controlled VR GI normal to inspection, nondistended, normoactive bowel sounds, soft to palpation and non-tender Extremity no calf tenderness General Extremity: Negative for edema Skin General Skin Exam: no breakdown Rashes: no rashes Psych cooperative Psych Narrative: He is calm, smiling and making good eye contact. He is eating well and does everything in therapy that is asked of him. Appearance: appropriate Attitude: No agitated Assessment & Plan Assessment/Plan (1) Arterial ischemic stroke, MCA, left, acute: (2) Depression determined by examination: (3) Acute right hemiparesis: (4) Dysphagia: QUALIFIERS: Dysphagia type: oropharyngeal phase Qualified Code(s): R13.12 - Dysphagia, oropharyngeal phase (5) Urine retention: (6) Severe protein-calorie malnutrition: (7) Cardiomyopathy: QUALIFIERS: Cardiomyopathy type: unspecified Qualified Code(s): I42.9 - Cardiomyopathy, unspecified (8) Chronic anticoagulation: PLAN: Plan 1. check a BMP in the AM 2. Repeat the MBS in the AM 3. Continue [facility]? 4. Doing very well and has make good progress in therapy. He is ambulating with a FWW at [facility] with no LOB in a reciprocal fashion standing tall. Speech is progressing and he is able to say routine phrases now. Getting stronger. Does not seem to have any R side neglect now. R arm has increased movment and he is using it more without having to be told to do so. Charges/Coding Visit Charges Inpatient E&M: 05704 Subs Hosp L2
--- NOTE | 2021-09-06 14:50 | CASEMGMT ---
Social Work IDT met with patient, two dtrs/ via conference call for Team meeting. Discussed patient's progress in PT/OT/ST/SN. Explained [employer] with NRD 09/07 and continued stay is not guaranteed. However, explained to family, [employer] does not always issue DC dates and relies on IDT to set DC. If continued stay is approved, it is not a guarantee of payment. If insurance does not cover stay, it will be pt's responsibility. Thus, SW needs to continue to pursue SNF for DC plan. Explained [facility]F does not have beds available for about two weeks. Asked to provide other options. expressed understanding. SW to continue to follow. Janey Mejia, TOP CUTTER CHILD CARE GROUP LEADER
[2021-09-06 16:26] LABS: Bedside Glucose 110 mg/dL (74-106)
[2021-09-06] MEDS: Tamsulosin HCl 0.4 MG Capsule PO (17:07)
[2021-09-06 19:27] VITALS: BP 103/51; PULSE 62; RESP 16; TEMP 36.6; O2SAT 99
[2021-09-06 20:55] VITALS: PULSE 61; RESP 16; O2SAT 99
[2021-09-06] MEDS: Insulin Glargine-YFGN 100 UNIT/ML Pen 10 UNIT SC (21:05)
[2021-09-06] MEDS: Atorvastatin Calcium 80 MG Tablet PO (21:06)
[2021-09-06] MEDS: Mirtazapine 15 MG Tablet PO (21:07)
[2021-09-06 21:10] VITALS: BP 104/63; PULSE 61
[2021-09-06 21:10] LABS: Bedside Glucose 147 mg/dL (74-106)
[2021-09-07 05:50] LABS: Hematocrit 38.1 % (40-54); Hemoglobin 12.5 g/dL (13.0-16.5); Mean Corp Hgb Conc 32.8 g/dL (32-36); Mean Corpuscular Hgb 28.4 pg (27.0-32.0); Mean Corpuscular Volume 86.6 fL (80-94); Mean Platelet Vol. 10.4 fl (6.2-12.0); Platelet Count 227 K/mm3 (150-450); RBC Distribution Width CV 14.5 % (11.6-14.6); White Blood Count 7.1 K/mm3 (4.4-11.0)
[2021-09-07 06:00] VITALS: BP 101/58; BP 82/56; BP 94/59; PULSE 62; PULSE 80; PULSE 86
[2021-09-07] MEDS: Arthritis Pain Compound 60 CLICK TUBE TOPICAL ×4 (06:19→20:12)
[2021-09-07 06:20] LABS: Anion Gap 6 (5-15); BUN 31 mg/dL (7-18); BUN/Creat Ratio 20.9 RATIO (10-20); Chloride 103 mmol/L (98-107); Creatinine, Serum 1.48 mg/dL (0.70-1.30); EST Glomerular Filtration Rate 50 mL/min (>60); Est Glom Filt Rate - Afr Amer 60 mL/min (>60); Estimated Creatinine Clearance 42.93 ml/min; Glucose 81 mg/dL (74-106); Potassium 4.6 mmol/L (3.5-5.1); Sodium Level 134 mmol/L (136-145)
[2021-09-07 06:25] LABS: Bedside Glucose 93 mg/dL (74-106)
[2021-09-07 07:50] VITALS: BP 101/58; PULSE 62; RESP 17; TEMP 36; O2SAT 97
[2021-09-07] MEDS: Lisinopril 2.5 MG Tablet PO (09:11)
[2021-09-07] MEDS: Clopidogrel Bisulfate 75 MG Tablet PO ×2 (09:12→09:17)
[2021-09-07] MEDS: Pantoprazole Sodium 20 MG Tablet PO (09:12)
[2021-09-07] MEDS: Senna/Docusate Sodium 1 Tablet 2 TABLET PO ×2 (09:12→20:11)
[2021-09-07] MEDS: Gabapentin 300 MG Capsule PO ×2 (09:13→09:17)
[2021-09-07] MEDS: Aspirin E.C. 81 MG Tablet PO ×2 (09:13→09:14)
[2021-09-07] MEDS: APIXABAN 2.5 MG TABLET PO ×2 (09:13→20:12)
[2021-09-07] MEDS: Amiodarone 200 MG Tablet PO (09:13)
[2021-09-07 09:14] VITALS: PULSE 62
[2021-09-07] MEDS: Metoprolol Tartrate 25 MG Tablet 12.5 MG PO ×2 (09:14→20:11)
[2021-09-07] MEDS: Furosemide 20 MG Tablet PO ×2 (09:14→09:17)
[2021-09-07] MEDS: Insulin Lispro 100 UNIT/ML INSULN.PEN SC ×2 (09:16→16:29)
[2021-09-07] MEDS: Fluticasone/Salmeterol 232-14 Inhaler 1 PUFF INHALATION ×2 (09:17→20:12)
[2021-09-07] MEDS: Empagliflozin 10 MG Tablet PO (09:17)
[2021-09-07] MEDS: Nystatin Powder 15gm Bottle 1 APPLIC TOPICAL ×2 (09:17→20:11)
[2021-09-07] MEDS: Umeclidinium Bromide Inhaler 1 PUFF INHALATION (09:17)
[2021-09-07] MEDS: Menthol/Lanolin/Calamine/Znox 113 GM Tube 1 APPLIC TOPICAL ×2 (09:18→20:12)
[2021-09-07] MEDS: COVID-19 VACC, MRNA(PFIZER)/PF 30 MCG/0.3 ML SYRINGE IM (10:20)
--- NOTE | 2021-09-07 10:47 | SP.MBSS_ITS ---
Modified Barium Swallow - Patient Information Study Date: 09/07/21 Study Time: 09:15 Direct Billable Minutes: 105 Total Minutes procedure & reportin Diagnosis: CVA / Oropharyngeal Dysphagia Referring Physician: Melissa Mcarthur Reason for Referral: Repeat MBSS recommended for objective assessment of swallow function under fluoroscopy following 2+ weeks of skilled dysphagia intervention to determine appropriateness for diet texture/liquid consistency upgrade, to further elucidate compensatory strategy recommendations and improve specificity of dysphagia interventions to be provided w/ continued treatment. Prior MBS: 08/22/2021 revealed moderate to severe oropharyngeal dysphagia w/ recommendation for pureed textures and moderately thick liquids Medical History: The patient is a 70 year old male with PMH including CAD, remote GA, hx of CABG/PCI with multiple stents, tobacco dependence, HTN, HLD, DM II, COPD and Depression. He had sudden onset of R side weakness and slurred speech on 08/09/21 while walking in a parking lot. He was taken to [facility] ED and at arrival was noted to be in AF with a BP of 170/109. CTA findings were consistent with a left M2 branch occlusion. TPA was administered and the patient was transferred to [facility] for mechanical thrombectomy/TNK. Following TPA and thrombectomy he had residual R side weakness and expressive aphasia. CT post TPA and TNK showed petechial hemorrhage in the area of the stroke. His admission to [facility] was complicated by a E. Coli UTI and he reportedly received a full course of antibiotics. While at [facility] he was seen by PT/OT/ST. This patient was admitted to [facility] on 08/19/2021 and has been rece iving for 3 hours of therapy daily to restore function/independence at or near his level prior to recent stroke. Current Diet Ordered: Minced and Moist/Moderately Thick Liquids Dentition: Upper Dentures, Lower Dentures Respiratory Status: Oxygenating on Room Air - Penetration-Aspiration Scale Penetration-Aspiration Scale: OBJECTIVE ASSESSMENT OF SWALLOW FUNCTION (QUANTITATIVE ? PER TRIAL): PENETRATION / ASPIRATION SCALE (CHAVIRA): 1 = does not enter airway 2 = enters airway/above vocal folds/ejected 3 = enters airway/above vocal folds/not ejected 4 = enters airway/contacts vocal folds/ejected 5 = enters airway/contacts vocal folds/not ejected 6 = enters airway/below vocal folds/ejected 7 = enters airway/below vocal folds/not ejected despite effort 8 = enters airway/below vocal folds/no effort - Penetration-Aspiration Scale Score Thin Liquid via teaspoon Result: 1= does not enter airway Thin Liquid via teaspoon Trial 2 Result: 4= enters airway/contacts vocal folds/ejected Thin Liquid via large single sip from cup Result: 5= enters airways/contacts vocal folds/not ejected Comment: penetration to the vocal folds during the swallow d/t incomplete laryngeal vestibule closure, penetration NOT ejected w/ swallow completion; cued throat clear WAS EFFECTIVE to eject contrast from the laryngeal vestibule Thin Liquid vis small sip - cued to swallow HARD and FAST Result: 1= does not enter airway Thin Liquid via small sip - cued to swallow HARD and FAST Trial 2 Result: 3= enters airways/above vocal folds/not ejected Comment: trace penetration lining the anterior wall of the laryngeal vestibule, NOT ejected; throat clear w/ reswallow WAS EFFECTIVE to clear contrast from the laryngeal vestibule Momence Thick Liquid via small sip - cued to swallow HARD and FAST Result: 1= does not enter airway Momence Thick Liquid via small sip - cued to swallow HARD and FAST Trial 2 Result: 3= enters airways/above vocal folds/not ejected Comment: trace penetration above the vocal folds, ejected w/ independent initiation of throat clearing/reswallow Honey Thick Liquid via small single sip from cup Result: 1= does not enter airway Comment: increased post-prandial pharyngeal residue retention requiring a second independently initiated swallow Pudding Result: 1= does not enter airway Pudding + Esophageal Screen Result: 1= does not enter airway Cookie Result: 1= does not enter airway Thin Liquid via small sip - cued to swallow HARD and FAST Trial 3 Result: 2= enter airway/above vocal folds/ejected Thin Liquid via small sip - cued to swallow HARD and FAST Trial 4 Result: 2= enter airway/above vocal folds/ejected - Oral Phase Labial Seal: No Labial Escape Tongue Control During Bolus Hold: Posterior escape of greater than half of bolus Bolus Preparation/Mastication: Slow prolonged chewing/mashing with complete recollection Bolus Transport/Lingual Motion: Slowed tongue motion Oral Residue: Residue collection on oral structures - Pharyngeal Phase Initiation of Pharyngeal Swallow: Bolus head in pyriforms Soft Palate Elevation: No bolus between soft palate and pharyngeal wall Laryngeal Elevation: Partial superior movement thyroid cart/partial apprx aryt- epig petiole Anterior Hyoid Excursion: Partial anterior movement Epiglottic Movement: Partial inversion Laryngeal Vestibule Closure at Height of Swallow: Incomplete; narrow column of air/contrast in laryngeal vestibule Pharyngeal Stripping Wave: Present - complete Pharyngoesophageal Segment Opening: Complete distension and complete duration; no obstruction of flow Tongue Base Retraction: Trace column of contrast between tongue base & post. pharyngeal wall Pharyngeal Residue: Collection of residue within or on pharyngeal structures - Esophageal Phase Esophageal Clearance: Esophageal retention - Diagnosis/Impression Diagnosis: Mild Oropharyngeal Dysphagia Impression: Oral phase is characterized by prolonged mastication of solids; slowed lingual motion for A-P bolus transportation; and mild post-prandial oral residue retention. Pharyngeal phase is characterized by suboptimal bolus location upon swallow onset w/ thin liquid reaching the pyriforms prior to swallow onset; incomplete hyolaryngeal excursion contributing to incomplete arytenoid to epiglottic petiole contact w/ incomplete laryngeal vestibule resulting in prandial laryngeal vestibule penetration; incomplete epiglottic inversion resulted in post-prandial residue retention w/in the valleculae/aryepiglottic folds (most notable w/ mild and moderately thick liquids); use of small volume thin liquid bolus in conjunction w/ cues to swallow HARD and FAST was EFFECTIVE to improve laryngeal vestibule closure and significantly reduce/eliminate contrast penetration; use of a throat clear and reswallow was effective to eject any penetrated contrast retained w/in the laryngeal vestibule. Esophageal phase is marked by significant bolus retention of pudding/cookie boluses w/in the esophagus at the level of T-1 and below; no retrograde bolus flow was appreciated; retention was reduced but not cleared w/ a liquid wash. Diet: Minced and Moist Textures / Thin Liquids Supervision: 1:1 supervision to ensure use of the below listed compensatory strategies Compensatory Strategies: Small sips one at a time, swallow HARD and FAST, alternate bites with sips at reasonable intervals, clear throat and reswallow frequently w/ PO intake, seated upright at 90 degrees for all PO intake, remain upright for 30 minutes after intake (GERD precaution) Additional Speech Therapy Services Recommended: This patient requires continued ST dysphagia intervention for continued diet texture management, training for consistent use of recommended compensatory strategies, and oropharyngeal strengthening exercises as able (limited ability to complete d/t apraxia s/p CVA) to address the above detailed deficits in swallow function Referrals Recommended: Would consider gastroenterology referral to assess the Patients esophageal functioning, due to significant esophageal retention/impaired peristalsis, as this is outside the scope of the modified barium swallow study. Patient Education: Results and recommendations were discussed with the Patient immediately following MBS completion, with the Patient verbalizing understanding and agreement with all recommendations and education provided. - Status Active ST Patient: Active - Contact Information [facility] Speech Therapy:: Ashley Ellison M.A., CCC-ENVELOPE SEALER OPERATOR [address] [place] [address] [phone] [email or web address]
[2021-09-07 11:01] LABS: Bedside Glucose 169 mg/dL (74-106)
--- NOTE | 2021-09-07 12:30 | CASEMGMT ---
Social Work Dtr Sammi contacted SW requesting further explanation on insurance coverage and SNF choices. Explained at length the insurance coverage, Medicare ELOS, SNF coverage with [employer] and with Medicaid. Dtr expressed understanding. Dtr requesting list of SNFs that were given to via email. Emailed list of in network SNFs and explained [email or web address]/[email or web address]. Dtr appreciative. SW to continue to follow. Janey Mejia, BIOINFORMATICS SUPPORT SPECIALIST MANAGER FACILITY
--- NOTE | 2021-09-07 12:59 | PN_ITS ---
Subjective Subjective Afebrile VSS Maintaining appropriate oxygen saturation on RA Oral intake is good however he took in 1470 yesterday and put out 1825. Weight today is down to 144.8 from 146.2 yesterday. The blood sugar record was reviewed and the blood sugars are well controlled with no hypoglycemia. Discussed with nursing - no problems that need addressed Reviewed the PT/OT/ST notes Medication list reviewed. The MBS went well today and he has been upgraded to thin liquids. All lab was personally reviewed. White blood cell count is normal at 7.1 today. Hemoglobin is 12.5 and platelets are within normal limits. Sodium is stable at 134 and the potassium is 4.6. The BUN is 31 with a creatinine of 1.48. Geoffrey denies lightheadedness, nausea, vomiting, abdominal pain, cephalgia. He is sleeping well and eating well. Objective Data Objective Data Vital Signs: Vital Signs Temp Pulse Resp BP Pulse Ox 96.8 F L 62 17 101/58 L 97 09/07/21 07:50 09/07/21 09:14 09/07/21 07:50 09/07/21 07:50 09/07/21 07:50 Oxygen Delivery Method Room Air Weight: 144 lb 13.499 oz Intake & Output: Intake and Output for Last 24 Hours 09/05/21 09/06/21 09/07/21 23:59 23:59 23:59 Intake Total 1680 / 1680 1470 / 1470 360 / 360 Output Total 1525 / 1950 1825 / 2450 1200 / 1200 Balance 155 / -270 -355 / -980 -840 / -840 Medical Nutrition Assessment Dietitian: Malnutrition Criteria Met Start: 08/20/21 10:19 Freq: Status: Active Protocol: Document 08/31/21 16:09 (Rec: 08/31/21 16:09 [id number]) Nutrition Malnutrition Evidence of Malnutrition Exists Yes Malnutrition (severe): Acute Illness/Injury Evidenced By Suboptimal Energy Intake ( Severe),Weight Loss (Severe), Physical Changes (Moderate) Clinical Problem Acute Disease or Injury Related Malnutrition Etiology Severe protein-calorie malnutrition related to difficulty swallowing and inadequate oral intake Signs/Symptoms PO intake 50% or less of estimated energy needs at meals meals; unintentional 13% wt loss >2 weeks; fat/muscle loss per physical exam ( clavicle, acromion process, buccal/orbital/temporal areas, upper arms); BMI 19.4 Status Active Problem Recommendation Dietitian Recommendations/Changes Will continue liberal regular diet w/ consistency/texture as per OWNER PROFESSIONAL ENGINEER. Will continue ensure pudding to with breakfast and magic cup to w/ lunch and dinner for increased nutrition if consumed. Lab / Micro Data Result Diagrams: 09/07/21 05:13 09/07/21 05:13 Labs: Laboratory Results - last 24 hr 09/06/21 16:24: POC Glucose 110 H 09/06/21 21:03: POC Glucose 147 H 09/07/21 05:13: Sodium 134 L, Potassium 4.6, Chloride 103, Carbon Dioxide 25.0, Anion Gap 6, BUN 31 H, Creatinine 1.48 H, Estim Creat Clear Calc 42.93, Est GFR (MDRD) Af Amer 60, Est GFR (MDRD) Non-Af 50 L, BUN/Creatinine Ratio 20.9 H, Glucose 81, Calcium 9.0 09/07/21 05:13: WBC 7.1, RBC 4.40 L, Hgb 12.5 L, Hct 38.1 L, MCV 86.6, MCH 28.4, MCHC 32.8, RDW Std Deviation 46.0 H, RDW Coeff of Toney 14.5, Plt Count 227, MPV 10.4 09/07/21 06:22: POC Glucose 93 09/07/21 10:56: POC Glucose 169 H Micro: Microbiology 08/19/21 23:10 Urine Catheter - Catheter Urine Culture - Final Culture exhibits no growth. Physical Exam Const alert General Appearance: cooperative HEENT Mouth: dry mucous membranes Eyes EOMs intact bilaterally Resp normal respiratory effort Auscultation: diminished lung sounds Cardio Cardio Narrative: Remains in atrial fibrillation with controlled ventricular response. No gallops. GI normal to inspection, nondistended, normoactive bowel sounds, soft to palpation and non-tender GI Narrative: Bladder is not distended. Extremity no calf tenderness Extremity Narrative: No ankle edema. Skin General Skin Exam: no breakdown Rashes: no rashes Assessment & Plan Assessment/Plan (1) Arterial ischemic stroke, MCA, left, acute: PLAN: Continue PT/OT/ST. He is making excellent progress and is working hard. Diet has been advanced to thin liquids and soft and moist textures. Walking with the FWW well and concentrating on standing tall and carefully plcing his feet......marked improvement from admission. (2) Chronic renal failure, stage 3a: PLAN: Urged him to increase his fluid intake now that he is on thin liquids. (3) Aphasia: PLAN: Making progress (4) Dysphagia: QUALIFIERS: Dysphagia type: oropharyngeal phase Qualified Code(s): R13.12 - Dysphagia, oropharyngeal phase PLAN: improved, diet advanced after the MBS today (5) Acute right hemiparesis: (6) Severe protein-calorie malnutrition: PLAN: Eating well now. (7) Dehydration: (8) Urine retention: PLAN: We are intermittently straight cathing. May need to try and teach him how to straight cath himself. Will need to follow up with Urology post discharge for the urine retention as well as the elevated PSA. (9) Diabetes: QUALIFIERS: Diabetes mellitus type: type 2 Diabetes mellitus termite technician insulin use: with correction use Diabetes mellitus complication status: with circulatory complication PLAN: Well controlled with no hypoglycemia. Charges/Coding Visit Charges Inpatient E&M: 13988 Subs Hosp L2
[2021-09-07] MEDS: Tamsulosin HCl 0.4 MG Capsule PO (16:29)
[2021-09-07 16:36] LABS: Bedside Glucose 102 mg/dL (74-106)
--- NOTE | 2021-09-07 16:58 | NURSING ---
Addendum entered by Stella Morales 09/07/21 17:01: This was afternoon amount. Original Note: Patient straight cath with out put of 500cc. Patient tolerated procedure well.
--- NOTE | 2021-09-07 16:59 | NURSING ---
Patient passed barium swallow test this morning. Speech therapy upgraded diet to mechanical/minced/moist and thin liquids. Patient has been tolerating well so far.
[2021-09-07 19:21] VITALS: BP 104/57; PULSE 80; RESP 16; TEMP 36.4; O2SAT 100
[2021-09-07 19:37] VITALS: PULSE 65; RESP 16; O2SAT 97
[2021-09-07] MEDS: Mirtazapine 15 MG Tablet PO (19:57)
[2021-09-07 20:11] VITALS: PULSE 68
[2021-09-07] MEDS: Insulin Glargine-YFGN 100 UNIT/ML Pen 10 UNIT SC (20:11)
[2021-09-07] MEDS: Atorvastatin Calcium 80 MG Tablet PO (20:11)
[2021-09-07 20:16] LABS: Bedside Glucose 190 mg/dL (74-106)
[2021-09-08 06:30] LABS: Bedside Glucose 103 mg/dL (74-106)
[2021-09-08] MEDS: Arthritis Pain Compound 60 CLICK TUBE TOPICAL ×4 (06:53→22:56)
[2021-09-08 09:36] VITALS: PULSE 76
[2021-09-08] MEDS: Metoprolol Tartrate 25 MG Tablet 12.5 MG PO ×2 (09:36→22:54)
[2021-09-08] MEDS: Lisinopril 2.5 MG Tablet PO (09:37)
[2021-09-08] MEDS: Pantoprazole Sodium 20 MG Tablet PO (09:37)
[2021-09-08] MEDS: Senna/Docusate Sodium 1 Tablet 2 TABLET PO (09:37)
[2021-09-08] MEDS: Amiodarone 200 MG Tablet PO (09:38)
[2021-09-08] MEDS: Empagliflozin 10 MG Tablet PO (09:38)
[2021-09-08] MEDS: Umeclidinium Bromide Inhaler 1 PUFF INHALATION (09:38)
[2021-09-08] MEDS: APIXABAN 2.5 MG TABLET PO (09:38)
[2021-09-08] MEDS: Insulin Lispro 100 UNIT/ML INSULN.PEN SC ×2 (09:38→17:23)
[2021-09-08] MEDS: Menthol/Lanolin/Calamine/Znox 113 GM Tube 1 APPLIC TOPICAL ×2 (09:40→22:54)
[2021-09-08] MEDS: Nystatin Powder 15gm Bottle 1 APPLIC TOPICAL ×2 (09:46→22:54)
[2021-09-08] MEDS: Fluticasone/Salmeterol 232-14 Inhaler 1 PUFF INHALATION ×2 (09:52→22:53)
[2021-09-08 10:00] VITALS: BP 101/55; PULSE 76; RESP 16; TEMP 36.4; O2SAT 95
[2021-09-08 16:01] LABS: Bedside Glucose 140 mg/dL (74-106)
[2021-09-08] MEDS: Tamsulosin HCl 0.4 MG Capsule PO (16:03)
[2021-09-08 19:20] VITALS: PULSE 68; RESP 18; O2SAT 100
[2021-09-08 19:50] VITALS: BP 103/56; PULSE 68; RESP 18; TEMP 36.3; O2SAT 100
[2021-09-08] MEDS: Mirtazapine 15 MG Tablet PO (22:53)
[2021-09-08] MEDS: Atorvastatin Calcium 80 MG Tablet PO (22:53)
[2021-09-08 22:54] VITALS: BP 106/67; PULSE 86
[2021-09-08] MEDS: Insulin Glargine-YFGN 100 UNIT/ML Pen 10 UNIT SC (22:58)
--- NOTE | 2021-09-08 23:39 | PCM.HOSP.N ---
Hospitalist Note Notified by rehab nurse that patient hematuria this evening. Patient was also complaining of abdominal pain. Patient was bladder scanned for about 91 cc. Patient had been getting straight cath periodically but had not been straight cathed recently. Went to evaluate the patient and a urine sample was visualized and it was dark reddish color. Not kim hematuria. Asked the patient about his abdominal pain and he has expressive aphasia but tells me that it is better. On exam his abdomen was very unremarkable. Did not have any rebound or any reproducible tenderness. Advised the nurse to hold off on his evening dose of Eliquis sugar if this is potential worsening of some bleeding that he may develop. I feel the patient probably had some mild hematuria due to the straight catheterizations that he was receiving, despite that he did not have 1 recently, and also being on anticoagulation and clopidogrel. I do not feel there is any need for any x-rays at this time.
[2021-09-08] MEDS: Acetaminophen 325 MG Tablet 650 MG PO (23:53)
--- NOTE | 2021-09-09 00:27 | NURSING ---
Addendum entered by Soraida Wen 09/09/21 00:42: 2330 Dr Sanford came to see pt. pt was unable to point a specific spot on his abd were he was having pain. naty was held this hs and to be restarted tomorrow, and to continue to monitor pt for sx. rn made aware Addendum entered by Soraida Wen 09/09/21 00:40: 2320 hospitalist was called and notified of pt hematuria and hx . hospitalist stated that he would see pt. 2332 Original Note: 1919 pt rings and was sitting on the side of the bed when staff walked in, pt reports that he needs to pee. staff brings bsc over and assisted pt to it. pt voided 350 cc of cloudy yellow urine, bladder scan completed at this time and value was 117cc. 2030 pt rings and states that he need to void, staff assisted with urinal and pt voided 100cc of cloudy urine. 2244 staff went into pt's room and found his urinal on the over bed table with dark red fluid on the table. pt is frowning and is rubbing his abd and when asked if he was having pain pt stated Yes. staff pulled back pt's blankets and blood was noted on pt's attends. pt asked when he last voided and pt implies about 20mins ago. pt did not turn light on and asked for assistance as he had done earlier in the shift. 175cc of dark bloody urine was in the urinal, bladder scan completed and value was 91cc. vs taken and were as follows : 106/67, 86, 18, 97%. when asked pt denied any other sx other than his abd pain. rn called to come and see pt and agreed the the hospitalist should be notified. 2329
[2021-09-09 02:01] LABS: Bedside Glucose 124 mg/dL (74-106)
[2021-09-09 06:00] VITALS: BP 103/57; BP 80/53; BP 83/48; PULSE 70; PULSE 72; PULSE 84
[2021-09-09] MEDS: Arthritis Pain Compound 60 CLICK TUBE TOPICAL ×4 (06:53→21:04)
[2021-09-09 07:10] LABS: Bedside Glucose 116 mg/dL (74-106)
[2021-09-09 07:45] LABS: Factor XI Activity 85 % (60-150)
--- NOTE | 2021-09-09 07:47 | NURSING ---
pt refused po fluids during hs when offered, 150cc of free water give after oral care was completed per fwp. pt did drink all of this water. urine was noted to be tea colored when pt voided in the bsc and had been incontinent of a lg in his attend this am. a small brown discoloration area was noted in pt attends. pt denied any discomfort this am
[2021-09-09] MEDS: Insulin Lispro 100 UNIT/ML INSULN.PEN SC ×2 (08:00→16:23)
[2021-09-09 08:01] VITALS: BP 103/57; PULSE 72; RESP 18; TEMP 36.5; O2SAT 97
[2021-09-09] MEDS: APIXABAN 2.5 MG TABLET PO ×2 (08:03→21:05)
[2021-09-09] MEDS: Empagliflozin 10 MG Tablet PO (08:04)
[2021-09-09] MEDS: Aspirin E.C. 81 MG Tablet PO (08:04)
[2021-09-09] MEDS: Amiodarone 200 MG Tablet PO (08:04)
[2021-09-09] MEDS: Clopidogrel Bisulfate 75 MG Tablet PO (08:05)
[2021-09-09] MEDS: Lisinopril 2.5 MG Tablet PO (08:05)
[2021-09-09] MEDS: Pantoprazole Sodium 20 MG Tablet PO (08:05)
[2021-09-09] MEDS: Fluticasone/Salmeterol 232-14 Inhaler 1 PUFF INHALATION ×2 (08:06→21:05)
[2021-09-09] MEDS: Furosemide 20 MG Tablet PO (08:06)
[2021-09-09] MEDS: Umeclidinium Bromide Inhaler 1 PUFF INHALATION (08:06)
[2021-09-09 08:07] VITALS: PULSE 72
[2021-09-09] MEDS: Metoprolol Tartrate 25 MG Tablet 12.5 MG PO (08:07)
[2021-09-09] MEDS: Gabapentin 300 MG Capsule PO (08:09)
[2021-09-09] MEDS: Nystatin Powder 15gm Bottle 1 APPLIC TOPICAL ×2 (08:10→21:05)
[2021-09-09] MEDS: Menthol/Lanolin/Calamine/Znox 113 GM Tube 1 APPLIC TOPICAL ×2 (08:10→21:05)
[2021-09-09] MEDS: Tamsulosin HCl 0.4 MG Capsule PO (16:23)
[2021-09-09 16:26] LABS: Bedside Glucose 155 mg/dL (74-106)
[2021-09-09 16:26] LABS: Mucous, Urine 0 SEEN /hpf (<or=2+)
[2021-09-09 16:31] LABS: Color, Urine Yellow (Yellow); Glucose, Dipstick 1000 mg/dl (Normal); Ketone-Dipstick Negative (Negative); Leukocyte Esterase-Dipstick 25 /ul (Negative); Nitrite-Dipstick Positive (Negative); Occult Blood-Urine 10 /ul (Negative); Protein-Dipstick 100 mg/dl (Negative); Specific Gravity, Urine 1.005 (1.002-1.030); Urine Bilirubin Dipstick Negative (Negative); Urine Clarity Clear (Clear); Urine Urobilinogen Normal (Normal)
[2021-09-09 16:53] LABS: Squamous Epithelial Cells - UA 0-5 SEEN /hpf (0-5); White Blood Cells 5-10 SEEN /hpf (0-5)
[2021-09-09 16:54] LABS: Bacteria 4+ /hpf (None Seen); Red Blood Cells-Urine 0-5 SEEN /hpf (0-5)
[2021-09-09 21:00] VITALS: BP 87/54; PULSE 63; PULSE 73; RESP 16; TEMP 36.4; O2SAT 96
[2021-09-09] MEDS: Senna/Docusate Sodium 1 Tablet 2 TABLET PO (21:04)
[2021-09-09] MEDS: Mirtazapine 15 MG Tablet PO (21:04)
[2021-09-09] MEDS: Atorvastatin Calcium 80 MG Tablet PO (21:04)
[2021-09-09 21:10] VITALS: BP 87/54; PULSE 73
[2021-09-09] MEDS: Insulin Glargine-YFGN 100 UNIT/ML Pen 10 UNIT SC (21:14)
[2021-09-09 23:01] LABS: Bedside Glucose 158 mg/dL (74-106)
[2021-09-10 06:00] VITALS: BP 100/57; BP 114/58; BP 114/64; PULSE 62; PULSE 78
[2021-09-10 07:21] LABS: Bedside Glucose 107 mg/dL (74-106)
[2021-09-10 07:40] VITALS: BP 114/58; PULSE 67; RESP 17; TEMP 36.4; O2SAT 97
[2021-09-10] MEDS: Arthritis Pain Compound 60 CLICK TUBE TOPICAL ×4 (08:15→20:29)
[2021-09-10] MEDS: Aspirin E.C. 81 MG Tablet PO (08:15)
[2021-09-10] MEDS: Fluticasone/Salmeterol 232-14 Inhaler 1 PUFF INHALATION ×2 (08:15→20:37)
[2021-09-10] MEDS: Umeclidinium Bromide Inhaler 1 PUFF INHALATION (08:15)
[2021-09-10 08:16] VITALS: BP 114/58; PULSE 67
[2021-09-10] MEDS: APIXABAN 2.5 MG TABLET PO ×2 (08:16→20:36)
[2021-09-10] MEDS: Clopidogrel Bisulfate 75 MG Tablet PO (08:16)
[2021-09-10] MEDS: Metoprolol Tartrate 25 MG Tablet 12.5 MG PO ×2 (08:16→20:37)
[2021-09-10] MEDS: Pantoprazole Sodium 20 MG Tablet PO (08:17)
[2021-09-10] MEDS: Gabapentin 300 MG Capsule PO (08:17)
[2021-09-10] MEDS: Amiodarone 200 MG Tablet PO (08:17)
[2021-09-10] MEDS: Insulin Lispro 100 UNIT/ML INSULN.PEN SC ×2 (08:17→17:26)
[2021-09-10] MEDS: Lisinopril 2.5 MG Tablet PO (08:17)
[2021-09-10] MEDS: Empagliflozin 10 MG Tablet PO (08:18)
[2021-09-10] MEDS: Menthol/Lanolin/Calamine/Znox 113 GM Tube 1 APPLIC TOPICAL ×2 (08:19→20:36)
[2021-09-10] MEDS: Nystatin Powder 15gm Bottle 1 APPLIC TOPICAL ×2 (08:28→20:40)
--- NOTE | 2021-09-10 11:45 | PN_ITS ---
Subjective Subjective Afebrile VSS - BP was decreased yesterday but is 114/58 this AM. HR is well controlled. Maintaining appropriate oxygen saturation on RA Oral intake - He took 1,580 yesterday.......but put out 1850. Weight is stable. Discussed with nursing - no problems that need addressed Reviewed the PT/OT/ST notes Medication list reviewed. Blood sugars are under excellent control with no hypoglycemia. A UA was ordered by the hospitalist over the weekend for hematuria on Friday......improved on Friday. The UA was positive for nitrites and had 5-10 WBCs per high-power field with 4+ bacteria. there were only 0-5 RBC's per HPF. Will order a urine culture. Geoffrey is speaking more and we actually had a conversation today. He is speaking in phrases now. He is not having any coughing or choking with eating since the diet was advanced. He denies chest pain, shortness of breath, cough, sore throat, palpitations, cephalgia, lightheadedness, dysuria. He is urinating without needing to be straight cath'd because the residuals recently have been less than 200. All lab was personally reviewed. White blood cell count is normal at 9.0. There is no left shift. Hemoglobin is stable at 12.4. Platelets are within normal limits. Factor X inhibitory activity is 85% which is on the low end of the range (60 - 150). He is currently on 2.5 mg of Eliquis twice daily. BMP shows a stable sodium of 134 and a potassium of 4.3. The BUN is 32 and the creatinine is stable at 1.37. Objective Data Objective Data Vital Signs: Vital Signs Temp Pulse Resp BP Pulse Ox 97.6 F L 67 17 114/58 L 97 09/10/21 07:40 09/10/21 08:16 09/10/21 07:40 09/10/21 08:16 09/10/21 07:40 Oxygen Delivery Method Room Air Weight: 145 lb 11.609 oz Intake & Output: Intake and Output for Last 24 Hours 09/08/21 09/09/21 09/10/21 23:59 23:59 23:59 Intake Total 900 / 900 1580 / 1580 360 / 360 Output Total 3000 / 3000 1850 / 1850 775 / 775 Balance -2100 / -2099 -270 / -270 -415 / -415 Medical Nutrition Assessment Dietitian: Malnutrition Criteria Met Start: 08/20/21 10:19 Freq: Status: Active Protocol: Document 08/31/21 16:09 (Rec: 08/31/21 16:09 AG [id number]) Nutrition Malnutrition Evidence of Malnutrition Exists Yes Malnutrition (severe): Acute Illness/Injury Evidenced By Suboptimal Energy Intake ( Severe),Weight Loss (Severe), Physical Changes (Moderate) Clinical Problem Acute Disease or Injury Related Malnutrition Etiology Severe protein-calorie malnutrition related to difficulty swallowing and inadequate oral intake Signs/Symptoms PO intake 50% or less of estimated energy needs at meals meals; unintentional 13% wt loss >2 weeks; fat/muscle loss per physical exam ( clavicle, acromion process, buccal/orbital/temporal areas, upper arms); BMI 19.4 Status Active Problem Recommendation Dietitian Recommendations/Changes Will continue liberal regular diet w/ consistency/texture as per GOLF SALES MANAGER. Will continue ensure pudding to with breakfast and magic cup to w/ lunch and dinner for increased nutrition if consumed. Lab / Micro Data Result Diagrams: 09/10/21 12:26 09/10/21 12:26 Labs: Laboratory Results - last 24 hr 09/09/21 16:00: Urine Color Yellow, Urine Clarity Clear, Urine pH 7.0, Ur Specific [place] 1.005, Urine Protein 100 H, Urine Glucose (UA) 1000 H, Urine Ketones Negative, Urine Occult Blood 10 H, Urine Nitrite Positive H, Urine Bilirubin Negative, Urine Urobilinogen Normal, Ur Leukocyte Esterase 25 H, Urine RBC 0-5 SEEN, Urine WBC 5-10 SEEN, Ur Squamous Epith Cells 0-5 SEEN, Urine Bacteria 4+, Urine Mucus 0 SEEN 09/09/21 16:18: POC Glucose 155 H 09/09/21 21:14: POC Glucose 158 H 09/10/21 06:35: POC Glucose 107 H Micro: Microbiology 08/19/21 23:10 Urine Catheter - Catheter Urine Culture - Final Culture exhibits no growth. Physical Exam Const alert and no apparent distress General Appearance: cooperative HEENT normocephalic Eyes PERRL and EOMs intact bilaterally Eyes Narrative: No scleral icterus and no conjunctival injection. No eye discharge and no mattering of the eyelids. Neck General: trachea midline Resp Resp Narrative: Diminished throughout but no wheezes or rails. Cardio no gallops Cardio Narrative: Irregular irregular rhythm with a controlled ventricular response. GI normal to inspection, nondistended, normoactive bowel sounds, soft to palpation and non-tender GI Narrative: No guarding with palpation. Assessment & Plan Assessment/Plan (1) Catheter-associated urinary tract infection: PLAN: Start Cefadroxil and order a urine culture (2) Chronic anticoagulation: PLAN: Increase the Eliquis to 5 mg BID (3) Chronic renal failure, stage 3a: PLAN: stable (4) Acute right hemiparesis: PLAN: much improved. He is ambulating with a platform walker at [facility] with no LOB (5) Urine retention: PLAN: resolved. Will continue the Flomax. Will need to follow up with Dr. Moran post discharge for the elevated PSA. (6) Atrial fibrillation: QUALIFIERS: Atrial fibrillation type: unspecified Qualified Code(s): I48.91 - Unspecified atrial fibrillation PLAN: Good rate control with the addition of Amiodarone we were able to decrease the Beta ion and the BP improved and orthostasis resolved. (7) Arterial ischemic stroke, MCA, left, acute: PLAN: Has had strokes in the past. He is on ASA, Plavix, statin, Eliquis. BS's are well controlled. Jardiance added to decrease risk of CV and cerebrovascular events going forward. (8) Aphasia: PLAN: progressing well and now is able to speak in phrases and he is enunciating well and esily understood. Continue therapy. SNF at [place]? or home with HHC if he continues to improve. Charges/Coding Visit Charges Inpatient E&M: 96245 Subs Hosp L2
[2021-09-10 12:41] LABS: Absolute Lymphocyte Count 2.05 X10^3/uL (0.83-4.51); Absolute Neutrophil Count 5.8 X10^3/uL (2.0-7.7); Basophil# 0.04 X10^3/uL; Basophil% 0.4 % (0-1); Eosinophil# 0.27 X10^3/uL; Hematocrit 38.1 % (40-54); Hemoglobin 12.4 g/dL (13.0-16.5); Lymphocyte # 2.05 X10^3/ul (0.83-4.51); Lymphocyte % 22.7 % (19-41); Mean Corp Hgb Conc 32.5 g/dL (32-36); Mean Corpuscular Hgb 28.5 pg (27.0-32.0); Mean Corpuscular Volume 87.6 fL (80-94); Mean Platelet Vol. 10.4 fl (6.2-12.0); Monocyte# 0.81 X10^3/uL; NRBC Flagged by Analyzer 0 % (0-5); Neutrophil # 5.82 X10^3/uL (2.7-7.7); Neutrophil % 64.6 % (47-70); Platelet Count 227 K/mm3 (150-450); RBC Distribution Width CV 14.6 % (11.6-14.6); RBC Distribution Width SD 47.3 fl (35.1-43.9); Red Blood Count 4.35 M/mm3 (4.6-6.2)
[2021-09-10 13:01] LABS: Anion Gap 7 (5-15); BUN 32 mg/dL (7-18); BUN/Creat Ratio 23.4 RATIO (10-20); Calcium,Total 8.7 mg/dL (8.5-10.1); Chloride 104 mmol/L (98-107); Creatinine, Serum 1.37 mg/dL (0.70-1.30); EST Glomerular Filtration Rate 54 mL/min (>60); Est Glom Filt Rate - Afr Amer 66 mL/min (>60); Estimated Creatinine Clearance 46.24 ml/min; Glucose 152 mg/dL (74-106); Potassium 4.3 mmol/L (3.5-5.1); Sodium Level 134 mmol/L (136-145)
--- NOTE | 2021-09-10 13:06 | CASEMGMT ---
Addendum entered by Janey Mejia 09/10/21 14:06: Spoke with about below information. requesting referral to [facility] SNF. Referral made. Original Note: Social Work Called [facility] to f/u on bed availability. Admissions is unsure of next opening, but agreed to contact SW to update before Team 09/13, on next open bed date. SW appreciative. Will continue to follow. Janey Mejia, BRIAN MICHELLEW
[2021-09-10] MEDS: Tamsulosin HCl 0.4 MG Capsule PO (17:13)
[2021-09-10 17:20] LABS: Bedside Glucose 148 mg/dL (74-106)
[2021-09-10 19:23] VITALS: BP 105/60; PULSE 75; RESP 16; TEMP 36.1; O2SAT 97
[2021-09-10] MEDS: Mirtazapine 15 MG Tablet PO (20:27)
[2021-09-10 20:37] VITALS: PULSE 78
[2021-09-10] MEDS: Atorvastatin Calcium 80 MG Tablet PO (20:37)
[2021-09-10] MEDS: Senna/Docusate Sodium 1 Tablet 2 TABLET PO (20:40)
[2021-09-10] MEDS: Insulin Glargine-YFGN 100 UNIT/ML Pen 10 UNIT SC (20:52)
[2021-09-10 20:56] LABS: Bedside Glucose 137 mg/dL (74-106)
[2021-09-10 22:00] VITALS: PULSE 68; RESP 16; O2SAT 97
[2021-09-11] VITALS (7 sets, daily range): BP systolic 97–116; BP diastolic 52–66; PULSE 66–92; RESP 16–18; TEMP 36.8; O2SAT 97–98
[2021-09-11] MEDS: Arthritis Pain Compound 60 CLICK TUBE TOPICAL ×5 (04:50→20:26)
[2021-09-11 06:25] LABS: Bedside Glucose 100 mg/dL (74-106)
[2021-09-11] MEDS: Aspirin E.C. 81 MG Tablet PO (08:54)
[2021-09-11] MEDS: Insulin Lispro 100 UNIT/ML INSULN.PEN SC ×2 (08:54→16:42)
[2021-09-11] MEDS: Amiodarone 200 MG Tablet PO (09:00)
[2021-09-11] MEDS: Pantoprazole Sodium 20 MG Tablet PO (09:00)
[2021-09-11] MEDS: Gabapentin 300 MG Capsule PO (09:00)
[2021-09-11] MEDS: Senna/Docusate Sodium 1 Tablet 2 TABLET PO ×2 (09:00→20:19)
[2021-09-11] MEDS: Lisinopril 2.5 MG Tablet PO (09:00)
[2021-09-11] MEDS: Furosemide 20 MG Tablet PO (09:00)
[2021-09-11] MEDS: Clopidogrel Bisulfate 75 MG Tablet PO (09:01)
[2021-09-11] MEDS: Umeclidinium Bromide Inhaler 1 PUFF INHALATION (09:01)
[2021-09-11] MEDS: Empagliflozin 10 MG Tablet PO (09:01)
[2021-09-11] MEDS: APIXABAN 2.5 MG TABLET PO (09:01)
[2021-09-11] MEDS: Metoprolol Tartrate 25 MG Tablet 12.5 MG PO (09:02)
[2021-09-11] MEDS: Fluticasone/Salmeterol 232-14 Inhaler 1 PUFF INHALATION ×2 (09:02→20:26)
[2021-09-11] MEDS: Nystatin Powder 15gm Bottle 1 APPLIC TOPICAL ×2 (13:41→20:29)
[2021-09-11] MEDS: Menthol/Lanolin/Calamine/Znox 113 GM Tube 1 APPLIC TOPICAL ×2 (13:41→20:26)
[2021-09-11 16:15] LABS: Bedside Glucose 114 mg/dL (74-106)
[2021-09-11] MEDS: Cefadroxil 500 MG CAPSULE PO ×2 (16:42→20:26)
[2021-09-11] MEDS: Tamsulosin HCl 0.4 MG Capsule PO (17:42)
[2021-09-11] MEDS: Mirtazapine 15 MG Tablet PO (20:19)
[2021-09-11] MEDS: APIXABAN 5 MG TABLET PO (20:26)
[2021-09-11] MEDS: Atorvastatin Calcium 80 MG Tablet PO (20:27)
[2021-09-11] MEDS: Insulin Glargine-YFGN 100 UNIT/ML Pen 10 UNIT SC (20:30)
[2021-09-11 21:01] LABS: Bedside Glucose 189 mg/dL (74-106)
[2021-09-12] MEDS: Arthritis Pain Compound 60 CLICK TUBE TOPICAL ×5 (05:19→20:57)
[2021-09-12 06:00] VITALS: BP 105/66; BP 119/70; BP 95/58; PULSE 102; PULSE 89
[2021-09-12 07:05] LABS: Bedside Glucose 98 mg/dL (74-106)
[2021-09-12 08:08] VITALS: BP 104/56; PULSE 58; RESP 17; TEMP 36.4; O2SAT 96
[2021-09-12] MEDS: Fluticasone/Salmeterol 232-14 Inhaler 1 PUFF INHALATION ×2 (09:09→20:59)
[2021-09-12] MEDS: Umeclidinium Bromide Inhaler 1 PUFF INHALATION (09:09)
[2021-09-12] MEDS: Clopidogrel Bisulfate 75 MG Tablet PO (09:12)
[2021-09-12] MEDS: Senna/Docusate Sodium 1 Tablet 2 TABLET PO ×2 (09:12→21:02)
[2021-09-12] MEDS: Lisinopril 2.5 MG Tablet PO (09:12)
[2021-09-12] MEDS: Cefadroxil 500 MG CAPSULE PO ×2 (09:12→20:58)
[2021-09-12] MEDS: Amiodarone 200 MG Tablet PO (09:12)
[2021-09-12] MEDS: Pantoprazole Sodium 20 MG Tablet PO (09:12)
[2021-09-12] MEDS: APIXABAN 5 MG TABLET PO ×2 (09:12→20:59)
[2021-09-12] MEDS: Menthol/Lanolin/Calamine/Znox 113 GM Tube 1 APPLIC TOPICAL ×2 (09:13→20:57)
[2021-09-12] MEDS: Aspirin E.C. 81 MG Tablet PO (09:13)
[2021-09-12] MEDS: Empagliflozin 10 MG Tablet PO (09:13)
[2021-09-12] MEDS: Insulin Lispro 100 UNIT/ML INSULN.PEN SC ×2 (09:13→16:54)
[2021-09-12 09:14] VITALS: PULSE 58
[2021-09-12] MEDS: Nystatin Powder 15gm Bottle 1 APPLIC TOPICAL ×2 (09:20→21:01)
[2021-09-12] MEDS: Gabapentin 300 MG Capsule PO (09:23)
--- NOTE | 2021-09-12 11:07 | PCM.PN.BLA ---
Progress Note Day #2 cefadroxil for E. coli UTI Afebrile VSS Maintaining appropriate oxygen saturation on RA Oral intake is good Discussed with nursing - no problems that need addressed Reviewed the PT/OT/ST notes Medication list reviewed. No complaints today. Denies CP, lightheadedness and SOB. No cough and continues to deny dysuria. No longer retaining urine and is voiding well with no recent residuals over 100. Urine culture grew a anguiano sensitive E. Coli so will continue the cefadroxil for 7 days. Physical Exam Const alert and no apparent distress General Appearance: cooperative Resp Resp Narrative: Diminished throughout with no rales, rhonchi or wheezes. He has no conversational dyspnea. He can lie flat in bed without any shortness of breath. He is not tachypneic, even with exercise. Cardio Cardio Narrative: Irregular irregular with controlled ventricular response. No lightheadedness. GI normal to inspection, nondistended, normoactive bowel sounds, soft to palpation and non-tender Extremity no calf tenderness and no pedal edema Assessment & Plan Assessment/Plan (1) Chronic anticoagulation: (2) Chronic renal failure, stage 3a: (3) Urine retention: (4) Acute right hemiparesis: (5) Petechial hemorrhage: (6) Atrial fibrillation: QUALIFIERS: Atrial fibrillation type: unspecified Qualified Code(s): I48.91 - Unspecified atrial fibrillation (7) Cardiomyopathy: QUALIFIERS: Cardiomyopathy type: unspecified Qualified Code(s): I42.9 - Cardiomyopathy, unspecified (8) Arterial ischemic stroke, MCA, left, acute: (9) Catheter-associated urinary tract infection: PLAN: Plan 1. Plan 7 days of cefadroxil for treatment of E. coli catheter associated UTI. 2. Continue current drug regimen 3. Continue PT/OT. He is now making progress with dressing his lower body. He is ambulating without loss of balance. I am hopeful that if he continues to improve the way he has been that he could go home at [place]. Will discuss at the next TEAM meeting on . 4. BS's remain well controlled with no hypoglycemia. Visit Charges Inpatient E&M: 71897 [facility] Hosp L1
[2021-09-12 16:11] LABS: Bedside Glucose 163 mg/dL (74-106)
[2021-09-12] MEDS: Tamsulosin HCl 0.4 MG Capsule PO (16:54)
[2021-09-12 19:10] VITALS: BP 116/53; PULSE 80; RESP 18; TEMP 36.7; O2SAT 98
[2021-09-12] MEDS: Mirtazapine 15 MG Tablet PO (20:11)
[2021-09-12 20:59] VITALS: BP 116/53; PULSE 80
[2021-09-12] MEDS: Metoprolol Tartrate 25 MG Tablet 12.5 MG PO (20:59)
[2021-09-12] MEDS: Atorvastatin Calcium 80 MG Tablet PO (20:59)
[2021-09-12 21:11] LABS: Bedside Glucose 165 mg/dL (74-106)
[2021-09-12] MEDS: Insulin Glargine-YFGN 100 UNIT/ML Pen 10 UNIT SC (21:21)
[2021-09-13] VITALS (7 sets, daily range): BP systolic 94–142; BP diastolic 55–70; PULSE 54–74; RESP 16; TEMP 36.3–36.5; O2SAT 97–99
--- NOTE | 2021-09-13 02:56 | NURSING ---
Reviewed and agree with VOLUNTEER COORDINATOR documentation and assessment charting.
[2021-09-13] MEDS: Arthritis Pain Compound 60 CLICK TUBE TOPICAL ×4 (05:59→20:15)
[2021-09-13 06:20] LABS: Bedside Glucose 93 mg/dL (74-106)
[2021-09-13] MEDS: Umeclidinium Bromide Inhaler 1 PUFF INHALATION (08:59)
[2021-09-13] MEDS: Fluticasone/Salmeterol 232-14 Inhaler 1 PUFF INHALATION ×2 (08:59→20:15)
[2021-09-13] MEDS: Lisinopril 2.5 MG Tablet PO (09:02)
[2021-09-13] MEDS: Furosemide 20 MG Tablet PO (09:02)
[2021-09-13] MEDS: Gabapentin 300 MG Capsule PO (09:02)
[2021-09-13] MEDS: Metoprolol Tartrate 25 MG Tablet 12.5 MG PO (09:03)
[2021-09-13] MEDS: Amiodarone 200 MG Tablet PO (09:03)
[2021-09-13] MEDS: Clopidogrel Bisulfate 75 MG Tablet PO (09:03)
[2021-09-13] MEDS: Aspirin E.C. 81 MG Tablet PO (09:03)
[2021-09-13] MEDS: Pantoprazole Sodium 20 MG Tablet PO (09:03)
[2021-09-13] MEDS: APIXABAN 5 MG TABLET PO ×2 (09:03→20:14)
[2021-09-13] MEDS: Cefadroxil 500 MG CAPSULE PO ×2 (09:03→20:16)
[2021-09-13] MEDS: Senna/Docusate Sodium 1 Tablet 2 TABLET PO ×2 (09:03→20:14)
[2021-09-13] MEDS: Insulin Lispro 100 UNIT/ML INSULN.PEN SC ×2 (09:04→17:07)
[2021-09-13] MEDS: Empagliflozin 10 MG Tablet PO (09:04)
[2021-09-13] MEDS: Menthol/Lanolin/Calamine/Znox 113 GM Tube 1 APPLIC TOPICAL ×2 (09:13→20:15)
[2021-09-13] MEDS: Nystatin Powder 15gm Bottle 1 APPLIC TOPICAL ×2 (09:13→20:14)
--- NOTE | 2021-09-13 13:55 | PN_ITS ---
Subjective Subjective Geoffrey was seen on team rounds today. His Padmini participated by phone. Following rounds I contacted his daughter Divina and updated her on Angelito progress. Afebrile VSS - systolic BP was in the high 90's yesterday but, he was asked to increase his fluids and today the BP is 112/60 - 121/55 and he denies lightheadedness. Maintaining appropriate oxygen saturation on RA Oral intake is good Weight is stable. Discussed with nursing - no problems that need addressed Reviewed the PT/OT/ST notes Medication list reviewed. BS record was reviewed Blood sugars are controlled with no hypoglycemia. The AM sugars are in the 90's and I would like them to stay in the 100-130 area because I would not want to risk hypoglycemia if he goes home. Geoffrey denies shortness of breath, cough, choking, chest pain, cephalgia, dysuria, lightheadedness, abdominal pain, nausea and calf pain. He is able to lie flat i n bed with no orthopnea. He is not tachypneic when working with therapy. Objective Data Objective Data Vital Signs: Vital Signs Temp Pulse Resp BP Pulse Ox O2 Del Method 97.4 F L 70 16 112/60 97 Room Air 09/13/21 08:54 09/13/21 09:03 09/13/21 08:54 09/13/21 09:03 09/13/21 08:54 09/13/21 08:54 Oxygen Delivery Method Room Air Weight: 146 lb 9.718 oz Intake & Output: Intake and Output for Last 24 Hours 09/11/21 09/12/21 09/13/21 23:59 23:59 23:59 Intake Total 1520 / 1520 1500 / 1500 720 / 720 Output Total 1500 / 1650 1200 / 1200 1050 / 1050 Balance 20 / -130 300 / 300 -330 / -330 Medical Nutrition Assessment Dietitian: Malnutrition Criteria Met Start: 08/20/21 10:19 Freq: Status: Active Protocol: Document 08/31/21 16:09 (Rec: 08/31/21 16:09 [id number]) Nutrition Malnutrition Evidence of Malnutrition Exists Yes Malnutrition (severe): Acute Illness/Injury Evidenced By Suboptimal Energy Intake ( Severe),Weight Loss (Severe), Physical Changes (Moderate) Clinical Problem Acute Disease or Injury Related Malnutrition Etiology Severe protein-calorie malnutrition related to difficulty swallowing and inadequate oral intake Signs/Symptoms PO intake 50% or less of estimated energy needs at meals meals; unintentional 13% wt loss >2 weeks; fat/muscle loss per physical exam ( clavicle, acromion process, buccal/orbital/temporal areas, upper arms); BMI 19.4 Status Active Problem Recommendation Dietitian Recommendations/Changes Will continue liberal regular diet w/ consistency/texture as per CREDIT REVIEW OFFICER. Will continue ensure pudding to with breakfast and magic cup to w/ lunch and dinner for increased nutrition if consumed. Lab / Micro Data Result Diagrams: 09/10/21 12:26 09/10/21 12:26 Labs: Laboratory Results - last 24 hr 09/12/21 15:59: POC Glucose 163 H 09/12/21 20:55: POC Glucose 165 H 09/13/21 06:15: POC Glucose 93 Micro: Microbiology 09/09/21 16:00 Urine Catheter - Catheter Urine Culture - Final Presumptive E. coli 08/19/21 23:10 Urine Catheter - Catheter Urine Culture - Final Culture exhibits no growth. Physical Exam Const alert Constitutional Narrative: appears comfortable He is sitting in the recliner and is smiling. General Appearance: cooperative HEENT HEENT Narrative: Mucous membranes are dry. No thrush. Eyes PERRL and EOMs intact bilaterally Eyes Narrative: No scleral icterus, no conjunctival injection, no discharge from the eyes and no mattering of the eyelids. Resp normal respiratory effort Resp Narrative: Air exchange is MUCH improved from admission. I would not even call the BS's diminished today. He has no wheezes, rhonchi or rales. Cardio Cardio Narrative: He is in AF with a controlled VR. No gallops and no MM's. GI normal to inspection, nondistended, normoactive bowel sounds, soft to palpation and non-tender GI Narrative: Having regular BM's Extremity no calf tenderness Extremity Narrative: no edema. Skin General Skin Exam: no breakdown Rashes: no rashes Neuro CN's II-XII intact bilaterally Neuro Narrative: Making excellent progress in therapy and if he has some help at home he may be able to go home however, his will not be able to provide much assistance. He must be able to do his own medications, give his own insulin and be able to wipe after using the toilet. He is now able to dress his lower body and can get his shirt on but, occasionally needs some assist when the R UE apraxia is worse. Strength is increased in the R arm and he is able to hold it up now with just a slight drift....it does not hit the bed. Psych cooperative and affect normal Psych Narrative: Sleeping well and eating well. Makes good eye contact. Appearance: appropriate Assessment & Plan Assessment/Plan (1) Arterial ischemic stroke, MCA, left, acute: PLAN: continue therapy. Needs to be able to give his own insulin if he is to go home. Since he is R handed this may be a problem. Will have nursing have him try to give his own insulin. He must also be able to manage his own medications. Also needs to be able to manage personal care after toileting so will have him try and wipe himself. We will have Farzana come in fro family training next week to see if she will be able to assist him adequately if he does go home. (2) Aphasia: PLAN: Making good progress......will have ST start to work with him setting up his own meds. (3) Debility: PLAN: Has made amazing progress, more than I expected however he still has some disability and so does his (cognitively and physically). I suspect they will do better in an assisted living situation. (4) Dysphagia: QUALIFIERS: Dysphagia type: oropharyngeal phase Qualified Code(s): R13.12 - Dysphagia, oropharyngeal phase PLAN: He is now on thin liquids and bite size moist food and has no coughing and no aspiration. Lungs are CTA. (5) Atrial fibrillation: QUALIFIERS: Atrial fibrillation type: unspecified Qualified Code(s): I48.91 - Unspecified atrial fibrillation PLAN: Rate is well controlled and he is now taking 5 mg of Eliquis BID. In light of the stage 3 CRF will likely check another Factor XI activity in another week to 10 days to make sure that he is not supratherapeutic. (6) Acute right hemiparesis: (7) Catheter-associated urinary tract infection: PLAN: Continue the Cefadroxil for 7 days. He is no longer to straight cath making UTI's less likely. PLAN: Plan Farzana will come in for family training next Friday. Destination at [place] is still up in the air. Charges/Coding Visit Charges Inpatient E&M: 32124 Subs Hosp L2
--- NOTE | 2021-09-13 15:07 | CASEMGMT ---
Social Work IDT met with patient for Team meeting. Pt was on conference call. Team discussed patient's progress in PT/OT/ST and nursing. Pt making significant progress. SW explained that insurance review was submitted today and determination is pending. Discharge plans have been for SNF placement, however, at this time team feels pt is making such significant progress he may be able to return home with . informed of this and is somewhat hesitant as she is fearful he will fall at home. Family training scheduled for Friday at 4:30 for pt and son to assess how pt is functioning and to see if pt can care for pt at home. RAQUEL did speak with [facility] [phone] and they do not have beds available at this time. RAQUEL also spoke with [facility] [phone] and the are very limited on beds and can accept pt but cannot guarantee a bed until a discharge date is set. RAQUEL will reassess discharge plan after family training on Friday. Discharge plan: SNF vs Home, pending outcome of family training. JOSE Booker
[2021-09-13 16:20] LABS: Bedside Glucose 141 mg/dL (74-106)
[2021-09-13] MEDS: Tamsulosin HCl 0.4 MG Capsule PO (17:07)
[2021-09-13] MEDS: Mirtazapine 15 MG Tablet PO (20:14)
[2021-09-13] MEDS: Atorvastatin Calcium 80 MG Tablet PO (20:14)
[2021-09-13] MEDS: Insulin Glargine-YFGN 100 UNIT/ML Pen 8 UNIT SC (20:32)
[2021-09-13 20:51] LABS: Bedside Glucose 191 mg/dL (74-106)
[2021-09-14 06:00] VITALS: BP 100/63; BP 123/68; BP 96/56; PULSE 100; PULSE 55; PULSE 74
[2021-09-14] MEDS: Arthritis Pain Compound 60 CLICK TUBE TOPICAL ×3 (06:23→16:33)
[2021-09-14 06:40] LABS: Bedside Glucose 104 mg/dL (74-106)
[2021-09-14] MEDS: Fluticasone/Salmeterol 232-14 Inhaler 1 PUFF INHALATION ×2 (07:36→20:28)
[2021-09-14] MEDS: Umeclidinium Bromide Inhaler 1 PUFF INHALATION (07:37)
[2021-09-14] MEDS: APIXABAN 5 MG TABLET PO ×2 (07:37→20:30)
[2021-09-14] MEDS: Lisinopril 2.5 MG Tablet PO (07:38)
[2021-09-14] MEDS: Clopidogrel Bisulfate 75 MG Tablet PO (07:38)
[2021-09-14] MEDS: Cefadroxil 500 MG CAPSULE PO ×2 (07:38→20:31)
[2021-09-14] MEDS: Aspirin E.C. 81 MG Tablet PO (07:38)
[2021-09-14] MEDS: Pantoprazole Sodium 20 MG Tablet PO (07:38)
[2021-09-14] MEDS: Amiodarone 200 MG Tablet PO (07:38)
[2021-09-14] MEDS: Empagliflozin 10 MG Tablet PO (07:40)
[2021-09-14 07:44] VITALS: PULSE 74
[2021-09-14] MEDS: Metoprolol Tartrate 25 MG Tablet 12.5 MG PO ×2 (07:44→20:31)
[2021-09-14] MEDS: Senna/Docusate Sodium 1 Tablet 2 TABLET PO ×2 (07:46→20:30)
[2021-09-14] MEDS: Nystatin Powder 15gm Bottle 1 APPLIC TOPICAL ×2 (07:47→20:28)
[2021-09-14] MEDS: Menthol/Lanolin/Calamine/Znox 113 GM Tube 1 APPLIC TOPICAL ×2 (07:47→20:29)
[2021-09-14] MEDS: Gabapentin 300 MG Capsule PO (07:51)
[2021-09-14] MEDS: Insulin Lispro 100 UNIT/ML INSULN.PEN 6 UNIT SC (08:00)
[2021-09-14 08:31] VITALS: BP 123/68; PULSE 91; RESP 16; TEMP 36.5; O2SAT 98
[2021-09-14] MEDS: Tamsulosin HCl 0.4 MG Capsule PO (16:34)
[2021-09-14] MEDS: Insulin Lispro 100 UNIT/ML INSULN.PEN SC (16:34)
[2021-09-14 17:21] LABS: Bedside Glucose 173 mg/dL (74-106)
[2021-09-14 19:44] VITALS: BP 119/61; PULSE 65; RESP 16; TEMP 36.6; O2SAT 96
[2021-09-14] MEDS: Insulin Glargine-YFGN 100 UNIT/ML Pen 8 UNIT SC (20:29)
[2021-09-14 20:31] VITALS: BP 119/61; PULSE 65
[2021-09-14] MEDS: Atorvastatin Calcium 80 MG Tablet PO (20:31)
[2021-09-14] MEDS: Mirtazapine 15 MG Tablet PO (20:31)
[2021-09-14 21:01] LABS: Bedside Glucose 169 mg/dL (74-106)
[2021-09-15] VITALS (7 sets, daily range): BP systolic 100–131; BP diastolic 48–68; PULSE 58–87; RESP 16; TEMP 36.1–36.9; O2SAT 98–99
[2021-09-15] MEDS: Arthritis Pain Compound 60 CLICK TUBE TOPICAL ×4 (06:48→21:00)
[2021-09-15 07:00] LABS: Bedside Glucose 111 mg/dL (74-106)
[2021-09-15] MEDS: Aspirin E.C. 81 MG Tablet PO (07:55)
[2021-09-15] MEDS: Insulin Lispro 100 UNIT/ML INSULN.PEN 6 UNIT SC (07:56)
[2021-09-15] MEDS: Amiodarone 200 MG Tablet PO (08:01)
[2021-09-15] MEDS: APIXABAN 5 MG TABLET PO ×2 (08:01→21:04)
[2021-09-15] MEDS: Cefadroxil 500 MG CAPSULE PO ×2 (08:01→21:03)
[2021-09-15] MEDS: Umeclidinium Bromide Inhaler 1 PUFF INHALATION (08:02)
[2021-09-15] MEDS: Empagliflozin 10 MG Tablet PO (08:03)
[2021-09-15] MEDS: Metoprolol Tartrate 25 MG Tablet 12.5 MG PO ×2 (08:04→21:01)
[2021-09-15] MEDS: Furosemide 20 MG Tablet PO (08:07)
[2021-09-15] MEDS: Clopidogrel Bisulfate 75 MG Tablet PO (08:08)
[2021-09-15] MEDS: Senna/Docusate Sodium 1 Tablet 2 TABLET PO ×2 (08:09→21:01)
[2021-09-15] MEDS: Pantoprazole Sodium 20 MG Tablet PO (08:09)
[2021-09-15] MEDS: Lisinopril 2.5 MG Tablet PO (08:10)
[2021-09-15] MEDS: Gabapentin 300 MG Capsule PO (08:12)
[2021-09-15] MEDS: Nystatin Powder 15gm Bottle 1 APPLIC TOPICAL ×2 (08:18→21:05)
[2021-09-15] MEDS: Menthol/Lanolin/Calamine/Znox 113 GM Tube 1 APPLIC TOPICAL ×2 (08:19→21:05)
[2021-09-15] MEDS: Fluticasone/Salmeterol 232-14 Inhaler 1 PUFF INHALATION ×2 (08:57→21:00)
[2021-09-15] MEDS: Tamsulosin HCl 0.4 MG Capsule PO (16:25)
[2021-09-15] MEDS: Insulin Lispro 100 UNIT/ML INSULN.PEN SC (16:29)
[2021-09-15 17:40] LABS: Bedside Glucose 179 mg/dL (74-106)
[2021-09-15] MEDS: Atorvastatin Calcium 80 MG Tablet PO (21:03)
[2021-09-15] MEDS: Mirtazapine 15 MG Tablet PO (21:04)
[2021-09-15] MEDS: Insulin Glargine-YFGN 100 UNIT/ML Pen 8 UNIT SC (21:22)
[2021-09-15 23:11] LABS: Bedside Glucose 172 mg/dL (74-106)
[2021-09-16 06:00] VITALS: BP 115/53; BP 89/56; BP 94/58; PULSE 61; PULSE 66; PULSE 96
[2021-09-16 06:50] LABS: Bedside Glucose 104 mg/dL (74-106)
[2021-09-16] MEDS: Arthritis Pain Compound 60 CLICK TUBE TOPICAL ×3 (06:50→20:41)
[2021-09-16 08:00] VITALS: BP 115/54; PULSE 61; RESP 14; TEMP 36.7; O2SAT 96
[2021-09-16] MEDS: Insulin Lispro 100 UNIT/ML INSULN.PEN 6 UNIT SC (09:16)
[2021-09-16] MEDS: Gabapentin 300 MG Capsule PO (09:17)
[2021-09-16] MEDS: Pantoprazole Sodium 20 MG Tablet PO (09:17)
[2021-09-16] MEDS: Lisinopril 2.5 MG Tablet PO (09:17)
[2021-09-16] MEDS: Clopidogrel Bisulfate 75 MG Tablet PO (09:17)
[2021-09-16 09:19] VITALS: PULSE 61
[2021-09-16] MEDS: Metoprolol Tartrate 25 MG Tablet 12.5 MG PO ×2 (09:19→20:34)
[2021-09-16] MEDS: APIXABAN 5 MG TABLET PO ×2 (09:19→20:36)
[2021-09-16] MEDS: Cefadroxil 500 MG CAPSULE PO ×2 (09:20→20:33)
[2021-09-16] MEDS: Empagliflozin 10 MG Tablet PO (09:20)
[2021-09-16] MEDS: Amiodarone 200 MG Tablet PO (09:20)
[2021-09-16] MEDS: Aspirin E.C. 81 MG Tablet PO (09:20)
[2021-09-16] MEDS: Fluticasone/Salmeterol 232-14 Inhaler 1 PUFF INHALATION ×2 (09:23→20:37)
[2021-09-16] MEDS: Umeclidinium Bromide Inhaler 1 PUFF INHALATION (09:24)
[2021-09-16] MEDS: Nystatin Powder 15gm Bottle 1 APPLIC TOPICAL ×2 (09:28→20:38)
[2021-09-16] MEDS: Menthol/Lanolin/Calamine/Znox 113 GM Tube 1 APPLIC TOPICAL ×2 (09:29→20:37)
[2021-09-16 16:21] LABS: Bedside Glucose 198 mg/dL (74-106)
[2021-09-16] MEDS: Tamsulosin HCl 0.4 MG Capsule PO (17:46)
[2021-09-16] MEDS: Insulin Lispro 100 UNIT/ML INSULN.PEN SC (17:47)
[2021-09-16 19:44] VITALS: BP 123/73; PULSE 58; RESP 16; TEMP 36.7; O2SAT 99
[2021-09-16] MEDS: Mirtazapine 15 MG Tablet PO (20:33)
[2021-09-16 20:34] VITALS: BP 123/73; PULSE 58
[2021-09-16] MEDS: Atorvastatin Calcium 80 MG Tablet PO (20:34)
[2021-09-16] MEDS: Insulin Glargine-YFGN 100 UNIT/ML Pen 8 UNIT SC (22:33)
[2021-09-16 22:50] LABS: Bedside Glucose 167 mg/dL (74-106)
--- NOTE | 2021-09-17 03:23 | NURSING ---
Reviewed and agree with FEDERAL JUDICIAL LAW CLERK documentation and assessment charting.
[2021-09-17] MEDS: Arthritis Pain Compound 60 CLICK TUBE TOPICAL ×4 (04:42→22:27)
[2021-09-17 06:00] VITALS: BP 112/60; BP 122/65; BP 95/58; PULSE 69; PULSE 70; PULSE 72
[2021-09-17 06:05] LABS: Hematocrit 35.4 % (40-54); Hemoglobin 11.7 g/dL (13.0-16.5); Mean Corp Hgb Conc 33.1 g/dL (32-36); Mean Corpuscular Hgb 28.7 pg (27.0-32.0); Mean Platelet Vol. 9.8 fl (6.2-12.0); Platelet Count 282 K/mm3 (150-450); RBC Distribution Width CV 14.7 % (11.6-14.6); RBC Distribution Width SD 47.1 fl (35.1-43.9); Red Blood Count 4.07 M/mm3 (4.6-6.2); White Blood Count 8.8 K/mm3 (4.4-11.0)
[2021-09-17 06:29] LABS: Anion Gap 7 (5-15); BUN 32 mg/dL (7-18); BUN/Creat Ratio 23.9 RATIO (10-20); Calcium,Total 8.7 mg/dL (8.5-10.1); Chloride 108 mmol/L (98-107); Creatinine, Serum 1.34 mg/dL (0.70-1.30); EST Glomerular Filtration Rate 56 mL/min (>60); Est Glom Filt Rate - Afr Amer 67 mL/min (>60); Estimated Creatinine Clearance 47.56 ml/min; Glucose 120 mg/dL (74-106); Magnesium 1.6 mg/dL (1.6-2.6); Potassium 4.2 mmol/L (3.5-5.1); Sodium Level 139 mmol/L (136-145)
[2021-09-17 07:26] LABS: Bedside Glucose 115 mg/dL (74-106)
[2021-09-17 07:28] VITALS: BP 108/57; PULSE 65; RESP 16; TEMP 35.8; O2SAT 98
[2021-09-17] MEDS: Fluticasone/Salmeterol 232-14 Inhaler 1 PUFF INHALATION ×2 (07:46→21:00)
[2021-09-17] MEDS: Umeclidinium Bromide Inhaler 1 PUFF INHALATION (07:46)
[2021-09-17] MEDS: Lisinopril 2.5 MG Tablet PO (07:47)
[2021-09-17] MEDS: Senna/Docusate Sodium 1 Tablet 2 TABLET PO ×2 (07:47→20:58)
[2021-09-17] MEDS: APIXABAN 5 MG TABLET PO ×2 (07:47→21:00)
[2021-09-17] MEDS: Aspirin E.C. 81 MG Tablet PO (07:47)
[2021-09-17 07:48] VITALS: PULSE 65
[2021-09-17] MEDS: Cefadroxil 500 MG CAPSULE PO ×2 (07:48→22:26)
[2021-09-17] MEDS: Metoprolol Tartrate 25 MG Tablet 12.5 MG PO ×2 (07:48→20:59)
[2021-09-17] MEDS: Pantoprazole Sodium 20 MG Tablet PO (07:48)
[2021-09-17] MEDS: Amiodarone 200 MG Tablet PO (07:50)
[2021-09-17] MEDS: Clopidogrel Bisulfate 75 MG Tablet PO (07:50)
[2021-09-17] MEDS: Empagliflozin 10 MG Tablet PO (07:52)
[2021-09-17] MEDS: Insulin Lispro 100 UNIT/ML INSULN.PEN 6 UNIT SC (07:54)
[2021-09-17] MEDS: Menthol/Lanolin/Calamine/Znox 113 GM Tube 1 APPLIC TOPICAL ×2 (07:55→21:00)
[2021-09-17] MEDS: Nystatin Powder 15gm Bottle 1 APPLIC TOPICAL ×2 (07:56→20:58)
[2021-09-17] MEDS: Furosemide 20 MG Tablet PO (10:15)
[2021-09-17] MEDS: Gabapentin 300 MG Capsule PO (10:15)
--- NOTE | 2021-09-17 13:53 | PN_ITS ---
Subjective Subjective Afebrile VSS Maintaining appropriate oxygen saturation on RA Oral intake is good Blood sugar record was reviewed. Rare BS > 200. No hypoglycemia. the lunch sugar is a little high at times. Discussed with nursing - no problems that need addressed Reviewed the PT/OT/ST notes Medication list reviewed. All lab from this AM was personally reviewed. Hemoglobin is stable. Platelets and white blood cell count are within normal limits. Sodium is is normal at 139 today. The BUN is 32 with a creatinine of 1.34 which is stable. Mag is very low normal at 1.6. Geoffrey has no complaints today. He continues to sleep well and eat well and makes good eye contact when you are speaking with him. No sign od depression or anxiety. Objective Data Objective Data Vital Signs: Vital Signs Temp Pulse Resp BP Pulse Ox O2 Del Method 96.5 F L 65 16 108/57 L 98 Room Air 09/17/21 07:28 09/17/21 07:48 09/17/21 07:28 09/17/21 07:28 09/17/21 07:28 09/17/21 07:28 Oxygen Delivery Method Room Air Weight: 145 lb 11.609 oz Intake & Output: Intake and Output for Last 24 Hours 09/15/21 09/16/21 09/17/21 23:59 23:59 23:59 Intake Total 1300 / 1300 460 / 560 800 / 800 Output Total 2650 / 3150 1200 / 1600 1850 / 1850 Balance -1350 / -1850 -740 / -1040 -1050 / -1050 Medical Nutrition Assessment Dietitian: Malnutrition Criteria Met Start: 08/20/21 10:19 Freq: Status: Active Protocol: Document 08/31/21 16:09 (Rec: 08/31/21 16:09 [id number]) Nutrition Malnutrition Evidence of Malnutrition Exists Yes Malnutrition (severe): Acute Illness/Injury Evidenced By Suboptimal Energy Intake ( Severe),Weight Loss (Severe), Physical Changes (Moderate) Clinical Problem Acute Disease or Injury Related Malnutrition Etiology Severe protein-calorie malnutrition related to difficulty swallowing and inadequate oral intake Signs/Symptoms PO intake 50% or less of estimated energy needs at meals meals; unintentional 13% wt loss >2 weeks; fat/muscle loss per physical exam ( clavicle, acromion process, buccal/orbital/temporal areas, upper arms); BMI 19.4 Status Active Problem Recommendation Dietitian Recommendations/Changes Will continue liberal regular diet w/ consistency/texture as per IMAGING ASSISTANT. Will continue ensure pudding to with breakfast and magic cup to w/ lunch and dinner for increased nutrition if consumed. Lab / Micro Data Result Diagrams: 09/17/21 05:11 09/17/21 05:11 Labs: Laboratory Results - last 24 hr 09/16/21 16:17: POC Glucose 198 H 09/16/21 22:32: POC Glucose 167 H 09/17/21 05:11: WBC 8.8, RBC 4.07 L, Hgb 11.7 L, Hct 35.4 L, MCV 87.0, MCH 28.7, MCHC 33.1, RDW Std Deviation 47.1 H, RDW Coeff of Toney 14.7 H, Plt Count 282, MPV 9.8 09/17/21 05:11: Sodium 139, Potassium 4.2, Chloride 108 H, Carbon Dioxide 24.0, Anion Gap 7, BUN 32 H, Creatinine 1.34 H, Estim Creat Clear Calc 47.56, Est GFR (MDRD) Af Amer 67, Est GFR (MDRD) Non-Af 56 L, BUN/Creatinine Ratio 23.9 H, Glucose 120 H, Calcium 8.7, Magnesium 1.6 09/17/21 06:59: POC Glucose 115 H Micro: Microbiology 09/09/21 16:00 Urine Catheter - Catheter Urine Culture - Final Presumptive E. coli 08/19/21 23:10 Urine Catheter - Catheter Urine Culture - Final Culture exhibits no growth. Physical Exam Const alert General Appearance: cooperative Eyes PERRL and EOMs intact bilaterally Resp normal respiratory effort Resp Narrative: Good air exchange throughout with no wheezes, rhonchi or rales. Cardio Cardio Narrative: Remains in AF with controlled ventricular response. No gallops and no rub. GI normal to inspection, nondistended, normoactive bowel sounds, soft to palpation and non-tender Extremity no calf tenderness General Extremity: Negative for edema Skin General Skin Exam: no breakdown Rashes: no rashes Assessment & Plan Assessment/Plan (1) Debility: (2) Arterial ischemic stroke, MCA, left, acute: (3) Atrial fibrillation: QUALIFIERS: Atrial fibrillation type: unspecified Qualified Code(s): I48.91 - Unspecified atrial fibrillation (4) Chronic anticoagulation: (5) Chronic renal failure, stage 3a: (6) Diabetes: QUALIFIERS: Diabetes mellitus type: type 2 Diabetes mellitus correction insulin use: with ocean transportation intermediary use Diabetes mellitus complication status: with circulatory complication (7) Hypertension: QUALIFIERS: Hypertension type: primary hypertension Qualified Code(s): I10 - Essential (primary) hypertension (8) Hypomagnesemia: PLAN: Plan 1. Add Mag 64 - 128 mg daily to the current drug regimen 2. Increase the Lispro with breakfast to 10 units. 3. Continue PT/OT/ST. Padmini is supposed to be coming in for family training tomorrow. We are waiting to see how the training goes to evans a decision about destination at [place]. I do not think she has a cognitive capacity to assist him at home with medications. Charges/Coding Visit Charges Inpatient E&M: 37443 Subs Hosp L1
[2021-09-17 16:40] LABS: Bedside Glucose 149 mg/dL (74-106)
[2021-09-17] MEDS: Magnesium Chloride 64 MG Delay Rel.Tablet 128 MG PO (17:05)
[2021-09-17] MEDS: Tamsulosin HCl 0.4 MG Capsule PO (17:05)
[2021-09-17] MEDS: Insulin Lispro 100 UNIT/ML INSULN.PEN SC (17:07)
[2021-09-17 19:32] VITALS: BP 112/61; PULSE 63; RESP 16; TEMP 36.5; O2SAT 100
[2021-09-17] MEDS: Mirtazapine 15 MG Tablet PO (20:58)
[2021-09-17 20:59] VITALS: BP 112/61; PULSE 63
[2021-09-17] MEDS: Atorvastatin Calcium 80 MG Tablet PO (21:00)
[2021-09-17] MEDS: Insulin Glargine-YFGN 100 UNIT/ML Pen 8 UNIT SC (22:29)
[2021-09-17 23:06] LABS: Bedside Glucose 163 mg/dL (74-106)
[2021-09-18 06:00] VITALS: BP 103/47; BP 104/74; BP 105/65; PULSE 105; PULSE 57
[2021-09-18 06:50] LABS: Bedside Glucose 119 mg/dL (74-106)
[2021-09-18] MEDS: Arthritis Pain Compound 60 CLICK TUBE TOPICAL ×5 (07:05→20:52)
[2021-09-18] MEDS: Menthol/Lanolin/Calamine/Znox 113 GM Tube 1 APPLIC TOPICAL ×2 (07:05→20:53)
[2021-09-18] MEDS: Nystatin Powder 15gm Bottle 1 APPLIC TOPICAL ×2 (07:05→20:54)
[2021-09-18 07:48] VITALS: BP 105/65; PULSE 57; RESP 16; TEMP 36.1; O2SAT 95
[2021-09-18] MEDS: Umeclidinium Bromide Inhaler 1 PUFF INHALATION (08:07)
[2021-09-18] MEDS: Fluticasone/Salmeterol 232-14 Inhaler 1 PUFF INHALATION ×2 (08:07→20:53)
[2021-09-18] MEDS: Insulin Lispro 100 UNIT/ML INSULN.PEN 8 UNIT SC (08:08)
[2021-09-18] MEDS: Senna/Docusate Sodium 1 Tablet 2 TABLET PO ×2 (08:11→20:53)
[2021-09-18 08:12] VITALS: PULSE 62
[2021-09-18] MEDS: Pantoprazole Sodium 20 MG Tablet PO (08:12)
[2021-09-18] MEDS: Metoprolol Tartrate 25 MG Tablet 12.5 MG PO ×2 (08:12→21:03)
[2021-09-18] MEDS: Empagliflozin 10 MG Tablet PO (08:13)
[2021-09-18] MEDS: Clopidogrel Bisulfate 75 MG Tablet PO (08:13)
[2021-09-18] MEDS: Amiodarone 200 MG Tablet PO (08:13)
[2021-09-18] MEDS: Lisinopril 2.5 MG Tablet PO (08:13)
[2021-09-18] MEDS: Cefadroxil 500 MG CAPSULE PO (08:13)
[2021-09-18] MEDS: Magnesium Chloride 64 MG Delay Rel.Tablet 128 MG PO (08:13)
[2021-09-18] MEDS: Gabapentin 300 MG Capsule PO (08:14)
[2021-09-18] MEDS: APIXABAN 5 MG TABLET PO ×2 (08:14→20:53)
[2021-09-18] MEDS: Aspirin E.C. 81 MG Tablet PO (08:14)
[2021-09-18 16:31] LABS: Bedside Glucose 105 mg/dL (74-106)
[2021-09-18] MEDS: Insulin Lispro 100 UNIT/ML INSULN.PEN SC (17:02)
[2021-09-18] MEDS: Tamsulosin HCl 0.4 MG Capsule PO (17:02)
[2021-09-18 19:40] VITALS: PULSE 77; RESP 18; O2SAT 100
[2021-09-18] MEDS: Atorvastatin Calcium 80 MG Tablet PO (20:52)
[2021-09-18] MEDS: Mirtazapine 15 MG Tablet PO (20:52)
[2021-09-18] MEDS: Insulin Glargine-YFGN 100 UNIT/ML Pen 8 UNIT SC (21:00)
[2021-09-18 21:03] VITALS: BP 101/56; PULSE 68
[2021-09-18 21:40] LABS: Bedside Glucose 148 mg/dL (74-106)
[2021-09-18 22:00] VITALS: BP 106/60; PULSE 77; RESP 18; TEMP 36.4; O2SAT 100
--- NOTE | 2021-09-19 04:08 | NURSING ---
Reviewed and agree with PROFESSOR OF FINE ART documentation and assessment charting.
[2021-09-19 06:00] VITALS: BP 100/81; BP 110/57; BP 94/90; PULSE 60; PULSE 63; PULSE 65
[2021-09-19] MEDS: Arthritis Pain Compound 60 CLICK TUBE TOPICAL ×5 (06:40→22:21)
[2021-09-19] MEDS: Nystatin Powder 15gm Bottle 1 APPLIC TOPICAL ×2 (06:41→22:29)
[2021-09-19] MEDS: Menthol/Lanolin/Calamine/Znox 113 GM Tube 1 APPLIC TOPICAL ×2 (06:41→22:21)
[2021-09-19 07:06] LABS: Bedside Glucose 103 mg/dL (74-106)
[2021-09-19] MEDS: Fluticasone/Salmeterol 232-14 Inhaler 1 PUFF INHALATION ×2 (07:45→22:28)
[2021-09-19] MEDS: Umeclidinium Bromide Inhaler 1 PUFF INHALATION (07:45)
[2021-09-19] MEDS: Insulin Lispro 100 UNIT/ML INSULN.PEN 8 UNIT SC (07:47)
[2021-09-19] MEDS: Furosemide 20 MG Tablet PO (07:50)
[2021-09-19] MEDS: Amiodarone 200 MG Tablet PO (07:50)
[2021-09-19] MEDS: Pantoprazole Sodium 20 MG Tablet PO (07:51)
[2021-09-19] MEDS: Magnesium Chloride 64 MG Delay Rel.Tablet 128 MG PO (07:51)
[2021-09-19] MEDS: Lisinopril 2.5 MG Tablet PO (07:51)
[2021-09-19 07:52] VITALS: BP 110/57; PULSE 65
[2021-09-19] MEDS: Empagliflozin 10 MG Tablet PO (07:52)
[2021-09-19] MEDS: Metoprolol Tartrate 25 MG Tablet 12.5 MG PO ×2 (07:52→22:28)
[2021-09-19] MEDS: APIXABAN 5 MG TABLET PO ×2 (07:52→22:28)
[2021-09-19] MEDS: Aspirin E.C. 81 MG Tablet PO (07:52)
[2021-09-19] MEDS: Senna/Docusate Sodium 1 Tablet 2 TABLET PO ×2 (07:53→22:28)
[2021-09-19] MEDS: Clopidogrel Bisulfate 75 MG Tablet PO (07:53)
[2021-09-19] MEDS: Gabapentin 300 MG Capsule PO (07:55)
[2021-09-19 09:26] VITALS: BP 115/68; PULSE 56; RESP 16; TEMP 35.9; O2SAT 95
--- NOTE | 2021-09-19 13:13 | PCM.PROGNOTE ---
Subjective Subjective Afebrile VSS-blood sugars well controlled with no complaints of lightheadedness. Heart rate is well controlled with the current drug regimen. Maintaining appropriate oxygen saturation on RA Oral intake is good The blood sugar record was reviewed and the blood sugar is under excellent control with no hypoglycemia. Weight is stable Discussed with nursing - no problems that need addressed Reviewed the PT/OT/ST notes Medication list reviewed. Farzana was scheduled to be at rehab at 4:30 yesterday and did not show up until 5:30. Geoffrey can not give himself his own insulin due to the weakness and lack of fine motor coordination in his dominant R hand. Farzana will not be able to do this. She is also not reliable and will not be able to safely care for Geoffrey. The decision has been made to [facility] [place]. The will contact [facility] today and will [place] when a bed is available. Objective Data Objective Data Vital Signs: Vital Signs Temp Pulse Resp BP Pulse Ox O2 Del Method 96.7 F L 56 L 16 115/68 95 Room Air 09/19/21 09:26 09/19/21 09:26 09/19/21 09:26 09/19/21 09:26 09/19/21 09:26 09/19/21 09:26 Oxygen Delivery Method Room Air Weight: 147 lb 4.301 oz Intake & Output: Intake and Output for Last 24 Hours 09/17/21 09/18/21 09/19/21 23:59 23:59 23:59 Intake Total 1280 / 1280 1300 / 1300 200 / 200 Output Total 3000 / 3000 2200 / 2200 700 / 700 Balance -1720 / -1720 -900 / -900 -500 / -500 Medical Nutrition Assessment Dietitian: Malnutrition Criteria Met Start: 08/20/21 10:19 Freq: Status: Active Protocol: Document 08/31/21 16:09 (Rec: 08/31/21 16:09 [id number]) Nutrition Malnutrition Evidence of Malnutrition Exists Yes Malnutrition (severe): Acute Illness/Injury Evidenced By Suboptimal Energy Intake ( Severe),Weight Loss (Severe), Physical Changes (Moderate) Clinical Problem Acute Disease or Injury Related Malnutrition Etiology Severe protein-calorie malnutrition related to difficulty swallowing and inadequate oral intake Signs/Symptoms PO intake 50% or less of estimated energy needs at meals meals; unintentional 13% wt loss >2 weeks; fat/muscle loss per physical exam ( clavicle, acromion process, buccal/orbital/temporal areas, upper arms); BMI 19.4 Status Active Problem Recommendation Dietitian Recommendations/Changes Will continue liberal regular diet w/ consistency/texture as per ROADWAY TECHNICIAN. Will continue ensure pudding to with breakfast and magic cup to w/ lunch and dinner for increased nutrition if consumed. Lab / Micro Data Result Diagrams: 09/17/21 05:11 09/17/21 05:11 Labs: Laboratory Results - last 24 hr 09/18/21 16:24: POC Glucose 105 09/18/21 20:58: POC Glucose 148 H 09/19/21 06:49: POC Glucose 103 Micro: Microbiology 09/09/21 16:00 Urine Catheter - Catheter Urine Culture - Final Presumptive E. coli 08/19/21 23:10 Urine Catheter - Catheter Urine Culture - Final Culture exhibits no growth. Physical Exam Const alert and no apparent distress Constitutional Narrative: Smiling and talkative General Appearance: cooperative Resp normal respiratory effort, normal air movement and clear to auscultation bilaterally Effort and Inspection: Negative for tachypneic Cardio Cardio Narrative: Remain in atrial fibrillation with good rate control. No gallops. Denies lightheadedness. GI normal to inspection, nondistended, normoactive bowel sounds, soft to palpation and non-tender GI Narrative: Eating well and denies nausea/vomiting/abdominal pain. Having regular bowel movements. Extremity no calf tenderness General Extremity: Negative for edema Skin General Skin Exam: no breakdown Rashes: no rashes Neuro CN's II-XII intact bilaterally Neuro Narrative: Right side neglect has resolved. He has increasing strength in the right upper extremity and has much more movement than at admission. Fine motor coordination is still lacking. He has ambulated outside with a FWW up to 1200 ft on various surfaces at [facility] with no LOB. He is talking more and having conversations with staff and visitors now. Psych cooperative, affect normal, denies homicidal ideation and denies suicidal ideation Appearance: appropriate Assessment & Plan Assessment/Plan (1) Arterial ischemic stroke, MCA, left, acute: PLAN: Has made steady progress in therapy and has done much better than I predicted at admission. He is still requiring assistance with giving insulin and medication management and his is not able to assist with this. He will need to go to an SNF for continued therapy. SW is contacting [facility] today to inquire about bed availability. Geoffrey's dtr Marie is on board with [facility] and [facility] (2) Petechial hemorrhage: PLAN: Did not require any surgical intervention and he after 2 weeks he was started on Eliquis and has had no adverse events. (3) Acute right hemiparesis: PLAN: Continues to improve. (4) Dysphagia: QUALIFIERS: Dysphagia type: oropharyngeal phase Qualified Code(s): R13.12 - Dysphagia, oropharyngeal phase PLAN: tolerating thin liquids and regular textures with small bites with no cough or sign of aspiration. (5) Atrial fibrillation: QUALIFIERS: Atrial fibrillation type: unspecified Qualified Code(s): I48.91 - Unspecified atrial fibrillation PLAN: Rate controlled (6) Chronic anticoagulation: PLAN: Tolerating Eliquis with no adverse reactions. He has stage 3a CRF and we should not have to adjust dose due to this but, will likely get a Factor XI activity level at some point to make sure that he is not supratherapeutic. (7) Cardiomyopathy: QUALIFIERS: Cardiomyopathy type: unspecified Qualified Code(s): I42.9 - Cardiomyopathy, unspecified PLAN: EF 34%. TAchycardia may be contributing to the decline in AF in addition to ischemia. He is stable on Lasix 20 mg Q 48H. (8) Severe protein-calorie malnutrition: PLAN: He is eating very well now and is no longer losing weight. Part of the weight loss was do to the fact that he was unable to swallow for some time prior to the recent stroke and I suspect he had a stroke a few months ago. He was also depressed and this is controlled with the Remeron. (9) Elevated PSA, between 10 and less than 20 ng/ml: PLAN: Will need to follow up with urology post DC. (10) Diabetes: QUALIFIERS: Diabetes mellitus type: type 2 Diabetes mellitus lens silverer insulin use: with senior living use Diabetes mellitus complication status: with circulatory complication PLAN: very well controlled with no hypoglycemia. Plan on keeping him on Insulin and Jardiance at [place]. (11) Hypertension: QUALIFIERS: Hypertension type: primary hypertension Qualified Code(s): I10 - Essential (primary) hypertension PLAN: Within goal with no lightheadedness and no no orthostatic hypotension. PLAN: Plan DC to [facility] when a bed is available. Will TEAM tomorrow. Charges/Coding Visit Charges Inpatient E&M: 51167 Subs Hosp L2
[2021-09-19] MEDS: Tamsulosin HCl 0.4 MG Capsule PO (16:03)
[2021-09-19 16:25] LABS: Bedside Glucose 153 mg/dL (74-106)
[2021-09-19] MEDS: Insulin Lispro 100 UNIT/ML INSULN.PEN SC (16:36)
--- NOTE | 2021-09-19 16:40 | CASEMGMT ---
Social Work Received update from nursing that son and did not show up until about 45 minutes after the scheduled time for therapy training, thus it did not occur. During that conversation, son and stated pt will DC to [facility] and then they can discuss plans for pt to return home. SW followed up with and PT to review plan. SW received call from dtr Sammi, inquiring about plan. Updated on above. Dtr agreeable and requesting SW f/u with [facility] on bed availability. SW agreed. SW left message with to discuss. SW contacted [facility] - still no foreseen bed availability. Contacted [facility] and are able to accept pt 09/21. [facility]; if denied, pt will admit under Medicaid and LOC will need obtained. Faxed updated clinicals to admissions to submit for precert. Updated IDT. Attempted to contact again - voicemail box was full. Team mtg held tomorrow. SW to continue to follow. Janey Mejia ,APPLIED EXERCISE PHYSIOLOGIST INSPECTOR LINE
[2021-09-19 19:11] VITALS: BP 101/59; PULSE 60; RESP 16; TEMP 36.4; O2SAT 99
[2021-09-19] MEDS: Mirtazapine 15 MG Tablet PO (19:57)
[2021-09-19 22:28] VITALS: BP 110/66; PULSE 62
[2021-09-19] MEDS: Atorvastatin Calcium 80 MG Tablet PO (22:28)
[2021-09-19] MEDS: Insulin Glargine-YFGN 100 UNIT/ML Pen 8 UNIT SC (22:30)
[2021-09-19 23:21] LABS: Bedside Glucose 194 mg/dL (74-106)
[2021-09-20 06:00] VITALS: BP 108/55; BP 126/56; BP 96/62; PULSE 75; PULSE 85; PULSE 89
[2021-09-20] MEDS: Arthritis Pain Compound 60 CLICK TUBE TOPICAL ×5 (06:24→20:59)
[2021-09-20] MEDS: Menthol/Lanolin/Calamine/Znox 113 GM Tube 1 APPLIC TOPICAL ×2 (06:27→20:49)
[2021-09-20 07:14] VITALS: BP 126/63; PULSE 75; RESP 16; TEMP 36.7; O2SAT 97
[2021-09-20 07:15] LABS: Bedside Glucose 136 mg/dL (74-106)
[2021-09-20] MEDS: Fluticasone/Salmeterol 232-14 Inhaler 1 PUFF INHALATION ×2 (07:37→20:54)
[2021-09-20] MEDS: Umeclidinium Bromide Inhaler 1 PUFF INHALATION (07:37)
[2021-09-20] MEDS: APIXABAN 5 MG TABLET PO ×2 (07:38→20:49)
[2021-09-20] MEDS: Aspirin E.C. 81 MG Tablet PO (07:38)
[2021-09-20 07:39] VITALS: PULSE 75
[2021-09-20] MEDS: Metoprolol Tartrate 25 MG Tablet 12.5 MG PO ×2 (07:39→20:50)
[2021-09-20] MEDS: Amiodarone 200 MG Tablet PO (07:39)
[2021-09-20] MEDS: Lisinopril 2.5 MG Tablet PO (07:40)
[2021-09-20] MEDS: Senna/Docusate Sodium 1 Tablet 2 TABLET PO (07:40)
[2021-09-20] MEDS: Clopidogrel Bisulfate 75 MG Tablet PO (07:40)
[2021-09-20] MEDS: Pantoprazole Sodium 20 MG Tablet PO (07:40)
[2021-09-20] MEDS: Gabapentin 300 MG Capsule PO (07:40)
[2021-09-20] MEDS: Magnesium Chloride 64 MG Delay Rel.Tablet 128 MG PO (07:40)
[2021-09-20] MEDS: Insulin Lispro 100 UNIT/ML INSULN.PEN 8 UNIT SC (07:41)
[2021-09-20] MEDS: Empagliflozin 10 MG Tablet PO (07:41)
--- NOTE | 2021-09-20 12:48 | CASEMGMT ---
Addendum entered by Janey Mejia 09/20/21 15:13: [place] summary completed. 7000 completed. Will await outcome of [employer] precert. Addendum entered by Janey Mejia 09/20/21 14:39: Left message with KAELA Colindres CM for [employer] with updated DC plan and date. Original Note: Social Work IDT met with patient, brother, and dtr Sammi and via conference call for Team meeting. Discussed patient's progress in PT/OT/ST/SN. [facility] 09/20. Explained and confirmed the goal for DC set by IDT is 09/21 to [facility], skilled. Precert was submitted this date for skilled. Requested transfer summary from to submit 7000 and to include if LOC is needed. Will await outcome from precert. SW to schedule transport once DC date/time is finalized. IDT aware the DC date may be later than anticipated d/t insurance. Family to transport. Plan: DC 09/21 to [facility], [place], pending precert BRIAN JensenW
--- NOTE | 2021-09-20 14:22 | TREXTCAR_ITS ---
Diet Diet Order/Speech Therapy: 09/12/21 12:44 Diet: Regular - General Food consistency:: Regular Type of Dietary Supplement:: Magic Cup w/ L & D Is pt able to select menu?: No Diet Comments: regular CUT INTO BITE SIZES PIECES - 1:1 staff suprvsn-small sips no straws Routine Orders/Code Status Enema Type: Fleetz Enema Frequency: Daily PRN Suppository Type: Dulcolax 10mg Suppository Frequency: Daily PRN O2 Liters per Minute: 1-2 O2 Frequency: PRN (Maintain O2 sat > 89%. He has not required oxygen while in rehab and the pulse ox has been ranging from 95-99%.) Keep PO Greater than or Equal to (%): 90 Routine Lab Work: - (HH, BMP, mag on 09/24/21. ) Code Status: DNRCC-A (with intubation) Wound(s) rt hand: Wound Type: Skin Tear lfa: Wound Type: Abrasion top of rt foot towards ankle: Wound Type: Abrasion rt forearm: Wound Type: Skin Tear Rt upper arm: Wound Type: Skin Tear Therapies Weight Bearing: Full weight bearing Extremity Affected:: Right arm and leg Physical Therapy: Eval and Treat Occupational Therapy: Eval and Treat Speech Therapy: Eval and Treat Problem/Diagnosis (1) Arterial ischemic stroke, MCA, left, acute: Status: Acute Code(s): I63.512 - Cerebral infarction due to unspecified occlusion or stenosis of left middle cerebral artery Plan: The CVA was embolic and he had TPA followed by thrombectomy. He had hemorrhagic conversion with small petechial bleed that required no surgical intervention. (2) Petechial hemorrhage: Status: Acute Code(s): R23.3 - Spontaneous ecchymoses Plan: Did not require any surgical intervention and after 2 weeks he was started on Eliquis and has had no adverse events. Comment: In the area of the stroke following TPA and TNK (for thrombectomy). (3) Acute right hemiparesis: Status: Acute Code(s): G81.91 - Hemiplegia, unspecified affecting right dominant side Plan: Continues to improve. (4) Dysphagia: Status: Acute Code(s): R13.10 - Dysphagia, unspecified Plan: Tolerating thin liquids and regular textures with small bites with no cough or sign of aspiration. Comment: Moderate to severe oropharyngeal dysphagia at admission to rehab. (5) [place]-neglect of right side: Status: Resolved Code(s): R41.4 - Neurologic neglect syndrome (6) Aphasia: Status: Acute Code(s): R47.01 - Aphasia (7) Right-sided visual neglect: Status: Resolved Code(s): R41.4 - Neurologic neglect syndrome (8) Atrial fibrillation: Status: Acute Code(s): I48.91 - Unspecified atrial fibrillation Plan: Rate controlled. 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 He has stage 3a CRF and we should not have to adjust dose due to this but, will likely get a Factor XI activity level at some point to make sure that he is not supratherapeutic. Comment: On Eliquis (10) Cardiomyopathy: Status: Acute Code(s): I42.9 - Cardiomyopathy, unspecified Plan: EF 34%. Tachycardia may be contributing to the decline in AF in addition to ischemia. He is stable on Lasix 20 mg Q 48H. (11) Severe protein-calorie malnutrition: Status: Acute Code(s): E43 - Unspecified severe protein-calorie malnutrition Plan: He is eating very well now and is no longer losing weight. Part of the weight loss was due to the fact that he was unable to swallow for some time prior to the recent stroke and I suspect he had a stroke a few months ago. He was also depressed and this is now controlled with the Remeron. (12) Elevated PSA, between 10 and less than 20 ng/ml: Status: Acute Code(s): R97.20 - Elevated prostate specific antigen [PSA] Plan: Will need to follow up with urology post DC. (13) Diabetes: Status: Acute Code(s): E11.9 - Type 2 diabetes mellitus without complications Plan: Very well controlled with no hypoglycemia. Plan on keeping him on Insulin and Jardiance at DC. (14) Hypertension: Status: Chronic Code(s): I10 - Essential (primary) hypertension Plan: Within goal with no lightheadedness and no no orthostatic hypotension. (15) Urine retention: Status: Resolved Code(s): R33.9 - Retention of urine, unspecified (16) Hypomagnesemia: Status: Acute Code(s): E83.42 - Hypomagnesemia Plan: Was placed on a supplement and a recheck ordered for 09/24/21. (17) Catheter-associated urinary tract infection: Status: Resolved Code(s): T83.511A - Infection and inflammatory reaction due to indwelling urethral catheter, initial encounter; N39.0 - Urinary tract infection, site not specified Plan: He had urine retention at admission to rehab and was started on Flomax but, voiding trial after 5 days of Flomax still showed retention. We than went to intermittent straight cath'ing and prior to DC we were able to stop the intermittent catheterization because he was no longer retaining. Comment: Pansensitive E. coli - treated with 7 days of Cefadroxil. (18) Chronic renal failure, stage 3a: Status: Acute Code(s): N18.31 - Chronic kidney disease, stage 3a Plan: Stable at 1.3-1.4. (19) Depression determined by examination: Status: Acute Code(s): F32.A - Depression, unspecified Plan: Resolved with Remeron and he is sleeping well and eating well now and cooperates with everything the therapists ask of him. (20) HLD (hyperlipidemia): Status: Acute Code(s): E78.5 - Hyperlipidemia, unspecified Comment: He is on a high intensity statin. (21) S/P CABG (coronary artery bypass graft): Status: Acute Code(s): Z95.1 - Presence of aortocoronary bypass graft (22) Diabetic nephropathy with proteinuria: Status: Acute Code(s): E11.21 - Type 2 diabetes mellitus with diabetic nephropathy (23) Orthostatic hypotension: Status: Resolved Code(s): I95.1 - Orthostatic hypotension (24) COPD (chronic obstructive pulmonary disease): Status: Chronic Code(s): J44.9 - Chronic obstructive pulmonary disease, unspecified Plan: He was smoking 2 PPD of cigarettes prior to the CVA. He has received nicotine patches while in rehab and was recently tapered down to a 7 mg patch. Breath sounds have improved remarkably since admission to rehab. He was diminished in all lung levy at admission and at DC he has good BS's in all lung levy with no rales, wheezes or rhonchi. (25) CAD (coronary artery disease): Status: Acute Code(s): I25.10 - Atherosclerotic heart disease of [place] coronary artery without angina pectoris (26) GERD (gastroesophageal reflux disease): Status: Chronic Code(s): K21.9 - Gastro-esophageal reflux disease without esophagitis Plan DC to [facility]. Needs to follow up with urology following DC from rehab for an elevated PSA of 11.7. Allergies/Procedures Done in Hospital Allergies heparin Allergy (Verified 08/20/21 03:14) Thrombocytopenia Procedures: - (Modified Barium Swallow on 08/22/2021 and 09/07/2021.) Type of Care/Length of Stay Estimated LOS: Convalescent Care Less Than 30 days Type of Care Needed: Skilled Rehab Potential: Good Prognosis: Good Additional Orders/Day of Discharge H&P will serve as current which was dated: 09/05/21 Day of Discharge: 09/21/21 Dietary and Speech Recommendations Dietitian Recommendations/Changes: Will continue liberal regular diet w/ consistency/texture as per BLOOD COLLECTOR. Will continue magic cup w/ lunch and dinner for increased nutrition if consumed. Speech Linguistic Eval Summary: Pt was able to identify own name with y/n answers. He was 50% accurate with y/n questions. He was not able to follow 1 step oral directions. He could not repeat single words. When a familiar item was placed in his hand, he was able to use it without cues cup+, napkin+, comb-. No automatic speech was present. Pt did communicate yes by nodding and opening his mouth to receive another bite of breakfast. He communicated no by shaking his head and pushing away an undesired item. He waved and smiled when others entered the room. Follow Up Care Please Follow Up With: Cardiology Please Follow Up With: urology When: Within the next 1-3 months. Discharge Plan Admission Admit Date/Time: 08/19/21 17:17 Primary Reason for Your Visit: CVA with R hemiparesis, R side neglect, dysphagia and aphasia. Attending Provider: Melissa Mcarthur Primary Care Provider: GLADIS WETZEL Consulting Providers: Zack Bardales Discharge Orders/Prescriptions Prescriptions: New acetaminophen [Tylenol] 325 mg Tablet 650 mg PO Q6H PRN PRN (Reason: Pain Score 1-10) Qty: 0 0RF amiodarone 200 mg Tablet 200 mg PO DAILY Qty: 0 0RF aspirin 81 mg Tablet,Delayed Release (Dr/Ec) 81 mg PO BREAKFAST Qty: 0 0RF albuterol sulfate [Ventolin HFA] 90 mcg/actuation Hfa Aerosol Inhaler 2 puff inhalation Q4H PRN PRN (Reason: SOB &/OR WHEEZING) Qty: 0 0RF Eliquis 5 mg Tablet 5 mg PO BID Qty: 0 0RF atorvastatin 80 mg Tablet 80 mg PO QHS Qty: 0 0RF bisacodyl 10 mg Suppository 10 mg OR .PRN X 1 PRN (Reason: Constipation) Qty: 0 0RF clopidogrel 75 mg Tablet 75 mg PO DAILY Qty: 0 0RF furosemide 20 mg Tablet 20 mg PO Q48H Qty: 0 0RF Jardiance 10 mg Tablet 10 mg PO DAILY Qty: 0 0RF fluticasone propion-salmeterol 232-14 mcg/actuation Aerosol Powdr Breath Activated 1 puff inhalation Q12 Qty: 0 0RF insulin glargine-yfgn 100 unit/mL (3 mL) Insulin Pen 8 unit subcut QHS Qty: 0 0RF insulin lispro [Humalog KwikPen Insulin] 100 unit/mL Insulin Pen 4 unit subcut SUPPER Qty: 1 0RF Rx Instructions: 4 units with supper daily insulin lispro [Humalog KwikPen Insulin] 100 unit/mL Insulin Pen 8 unit subcut BREAKFAST Qty: 0 0RF magnesium hydroxide 400 mg/5 mL Suspension 30 ml PO .PRN X 1 PRN (Reason: Constipation) Qty: 0 0RF lisinopril 2.5 mg Tablet 2.5 mg PO DAILY Qty: 0 0RF Mag 64 64 mg Tablet,Delayed Release (Dr/Ec) 128 mg PO DAILY Qty: 0 0RF menthol-zinc oxide [Calmoseptine] 0.44-20.6 % Ointment 1 applic topical BID@0600,2200 Qty: 0 0RF Protocol: *Topical Application Instructions APPLICATION INSTRUCTIONS: to coccyx sennosides-docusate sodium [Stool Softener-Stimulant Laxat] 8.6-50 mg Tablet 2 tab PO BID Qty: 1 0RF pantoprazole 20 mg Tablet,Delayed Release (Dr/Ec) 20 mg PO DAILY Qty: 0 0RF mirtazapine 15 mg Tablet 15 mg PO 1999 Qty: 0 0RF nicotine 7 mg/24 hr Patch 24 Hour 7 mg transdermal DAILY Qty: 0 0RF metoprolol tartrate 25 mg Tablet 12.5 mg PO BID Qty: 0 0RF tamsulosin 0.4 mg Capsule 0.4 mg PO DAILY@1730 Qty: 0 0RF Incruse Ellipta 62.5 mcg/actuation Blister With Device 1 puff inhalation DAILY Qty: 0 0RF Continued gabapentin [Neurontin] 300 mg Capsule 300 mg PO DAILY Discontinued aspirin 81 mg Tablet,Chewable 81 mg PO DAILY furosemide 20 mg Tablet 40 mg PO DAILY Referrals / Follow Up: GLADIS WETZEL [Other] Disposition Disposition (needs filled in before D/C Order can be placed): [facility] (1) Dysphagia Qualifiers: Dysphagia type: oropharyngeal phase Qualified Code(s): R13.12 - Dysphagia, oropharyngeal phase (2) Atrial fibrillation Qualifiers: Atrial fibrillation type: unspecified Qualified Code(s): I48.91 - Unspecified atrial fibrillation (3) Cardiomyopathy Qualifiers: Cardiomyopathy type: unspecified Qualified Code(s): I42.9 - Cardiomyopathy, unspecified (4) Diabetes Qualifiers: Diabetes mellitus type: type 2 Diabetes mellitus terminal superintendent insulin use: with terminal superintendent use Diabetes mellitus complication status: with circulatory complication (5) Hypertension Qualifiers: Hypertension type: primary hypertension Qualified Code(s): I10 - Essential (primary) hypertension (6) COPD (chronic obstructive pulmonary disease) Qualifiers: COPD type: unspecified COPD Qualified Code(s): J44.9 - Chronic obstructive pulmonary disease, unspecified (7) CAD (coronary artery disease) Qualifiers: Coronary Disease-Associated Artery/Lesion type: [place] artery [place] vs. transplanted heart: [place] heart Associated angina: without angina Qualified Code(s): I25.10 - Atherosclerotic heart disease of [place] coronary artery without angina pectoris (8) GERD (gastroesophageal reflux disease) Qualifiers: Esophagitis presence: esophagitis presence not specified Qualified Code(s): K21.9 - Gastro-esophageal reflux disease without esophagitis
--- NOTE | 2021-09-20 15:11 | EX.DISCHREH ---
Providers Date of Admission: 08/19/21 Date of Discharge: 09/21/21 Primary Care Physician: GLADIS WETZEL Consultations 08/21/21 13:11 Consult: Cardiology Routine Consulting Provider: Zack Bardales Reason for Consult: CM/AF/embolic CVA/orthostatic hypotension EMERGENT Consult: No MD Notified: Yes Date Notified: 08/21/21 Time Notified: 13:11 Method of Notification: Text Reason For Visit: STROKE Diagnosis Discharge Diagnosis (1) Arterial ischemic stroke, MCA, left, acute: Status: Acute Code(s): I63.512 - Cerebral infarction due to unspecified occlusion or stenosis of left middle cerebral artery Plan: The CVA was embolic and he had TPA followed by thrombectomy. He had hemorrhagic conversion with small petechial bleed that required no surgical intervention. (2) Petechial hemorrhage: Status: Acute Code(s): R23.3 - Spontaneous ecchymoses Plan: Did not require any surgical intervention and after 2 weeks he was started on Eliquis and has had no adverse events. (3) Acute right hemiparesis: Status: Acute Code(s): G81.91 - Hemiplegia, unspecified affecting right dominant side Plan: Continues to improve. (4) Dysphagia: Status: Acute Code(s): R13.10 - Dysphagia, unspecified Qualifiers: Dysphagia type: oropharyngeal phase Qualified Code(s): R13.12 - Dysphagia, oropharyngeal phase Plan: Tolerating thin liquids and regular textures with small bites with no cough or sign of aspiration. (5) Kwabena-neglect of right side: Status: Resolved Code(s): R41.4 - Neurologic neglect syndrome (6) Aphasia: Status: Acute Code(s): R47.01 - Aphasia (7) Right-sided visual neglect: Status: Resolved Code(s): R41.4 - Neurologic neglect syndrome (8) Atrial fibrillation: Status: Acute Code(s): I48.91 - Unspecified atrial fibrillation Qualifiers: Atrial fibrillation type: unspecified Qualified Code(s): I48.91 - Unspecified atrial fibrillation Plan: Rate controlled. (9) Chronic anticoagulation: Status: Chronic Code(s): Z79.01 - prison (current) use of anticoagulants Plan: Tolerating Eliquis with no adverse reactions. He has stage 3a CRF and we should not have to adjust dose due to this but, will likely get a Factor XI activity level at some point to make sure that he is not supratherapeutic. (10) Cardiomyopathy: Status: Acute Code(s): I42.9 - Cardiomyopathy, unspecified Qualifiers: Cardiomyopathy type: unspecified Qualified Code(s): I42.9 - Cardiomyopathy, unspecified Plan: EF 34%. Tachycardia may be contributing to the decline in AF in addition to ischemia. He is stable on Lasix 20 mg Q 48H. (11) Severe protein-calorie malnutrition: Status: Acute Code(s): E43 - Unspecified severe protein-calorie malnutrition Plan: He is eating very well now and is no longer losing weight. Part of the weight loss was due to the fact that he was unable to swallow for some time prior to the recent stroke and I suspect he had a stroke a few months ago. He was also depressed and this is now controlled with the Remeron. (12) Elevated PSA, between 10 and less than 20 ng/ml: Status: Acute Code(s): R97.20 - Elevated prostate specific antigen [PSA] Plan: Will need to follow up with urology post MD. (13) Diabetes: Status: Acute Code(s): E11.9 - Type 2 diabetes mellitus without complications Qualifiers: Diabetes mellitus complication status: with circulatory complication Diabetes mellitus half-way insulin use: with half-way use Diabetes mellitus type: type 2 Plan: Very well controlled with no hypoglycemia. Plan on keeping him on Insulin and Jardiance at MD. (14) Hypertension: Status: Chronic Code(s): I10 - Essential (primary) hypertension Qualifiers: Hypertension type: primary hypertension Qualified Code(s): I10 - Essential (primary) hypertension Plan: Within goal with no lightheadedness and no no orthostatic hypotension. (15) Urine retention: Status: Resolved Code(s): R33.9 - Retention of urine, unspecified (16) Hypomagnesemia: Status: Acute Code(s): E83.42 - Hypomagnesemia Plan: Was placed on a supplement and a recheck ordered for 09/24/21. (17) Catheter-associated urinary tract infection: Status: Resolved Code(s): T83.511A - Infection and inflammatory reaction due to indwelling urethral catheter, initial encounter; N39.0 - Urinary tract infection, site not specified Plan: He had urine retention at admission to rehab and was started on Flomax but, voiding trial after 5 days of Flomax still showed retention. We than went to intermittent straight cath'ing and prior to DC we were able to stop the intermittent catheterization because he was no longer retaining. (18) Chronic renal failure, stage 3a: Status: Acute Code(s): N18.31 - Chronic kidney disease, stage 3a Plan: Stable at 1.3-1.4. (19) Depression determined by examination: Status: Acute Code(s): F32.A - Depression, unspecified Plan: Resolved with Remeron and he is sleeping well and eating well now and cooperates with everything the therapists ask of him. (20) HLD (hyperlipidemia): Status: Acute Code(s): E78.5 - Hyperlipidemia, unspecified (21) S/P CABG (coronary artery bypass graft): Status: Acute Code(s): Z95.1 - Presence of aortocoronary bypass graft (22) Diabetic nephropathy with proteinuria: Status: Acute Code(s): E11.21 - Type 2 diabetes mellitus with diabetic nephropathy (23) Orthostatic hypotension: Status: Resolved Code(s): I95.1 - Orthostatic hypotension (24) COPD (chronic obstructive pulmonary disease): Status: Chronic Code(s): J44.9 - Chronic obstructive pulmonary disease, unspecified Qualifiers: COPD type: unspecified COPD Qualified Code(s): J44.9 - Chronic obstructive pulmonary disease, unspecified Plan: He was smoking 2 PPD of cigarettes prior to the CVA. He has received nicotine patches while in rehab and was recently tapered down to a 7 mg patch. Breath sounds have improved remarkably since admission to rehab. He was diminished in all lung levy at admission and at DC he has good BS's in all lung levy with no rales, wheezes or rhonchi. (25) CAD (coronary artery disease): Status: Acute Code(s): I25.10 - Atherosclerotic heart disease of [place] coronary artery without angina pectoris Qualifiers: Associated angina: without angina Coronary Disease-Associated Artery/Lesion type: [place] artery [place] vs. transplanted heart: [place] heart Qualified Code(s): I25.10 - Atherosclerotic heart disease of [place] coronary artery without angina pectoris (26) GERD (gastroesophageal reflux disease): Status: Chronic Code(s): K21.9 - Gastro-esophageal reflux disease without esophagitis Qualifiers: Esophagitis presence: esophagitis presence not specified Qualified Code(s): K21.9 - Gastro-esophageal reflux disease without esophagitis Plan DC to [facility]. Needs to follow up with urology following DC from rehab for an elevated PSA of 11.7. Medications at Discharge Home Medications gabapentin 300 mg capsule (Neurontin) 300 mg PO DAILY Check with primary doctor 08/19/21 acetaminophen 325 mg tablet (Tylenol) 650 mg PO Q6H PRN PRN Pain Score 1-10 #0 tabs 09/20/21 albuterol sulfate 90 mcg/actuation aerosol inhaler (Ventolin HFA) 2 puff inhalation Q4H PRN PRN SOB &/OR WHEEZING #0 grams 09/20/21 amiodarone 200 mg tablet 200 mg PO DAILY #0 tabs 09/20/21 apixaban 5 mg tablet (Eliquis) 5 mg PO BID #0 tabs 09/20/21 aspirin 81 mg tablet,delayed release 81 mg PO BREAKFAST #0 tabs 09/20/21 atorvastatin 80 mg tablet 80 mg PO QHS #0 tabs 09/20/21 bisacodyl 10 mg rectal suppository 10 mg AK .PRN X 1 PRN Constipation #0 ea 09/20/21 clopidogrel 75 mg tablet 75 mg PO DAILY #0 tabs 09/20/21 empagliflozin 10 mg tablet (Jardiance) 10 mg PO DAILY #0 tabs 09/20/21 fluticasone 232 mcg-salmeterol 14 mcg/actuation breath activated powdr 1 puff inhalation Q12 #0 ea 09/20/21 furosemide 20 mg tablet 20 mg PO Q48H #0 tabs 09/20/21 insulin glargine-yfgn 100 unit/mL (3 mL) subcutaneous pen 8 unit (0.08 mL) subcut QHS #0 mL 09/20/21 insulin lispro 100 unit/mL subcutaneous pen (Humalog KwikPen (U-100) Insulin) 4 unit (0.04 mL) subcut SUPPER #1 mL 09/20/21 insulin lispro 100 unit/mL subcutaneous pen (Humalog KwikPen (U-100) Insulin) 8 unit (0.08 mL) subcut BREAKFAST #0 mL 09/20/21 lisinopril 2.5 mg tablet 2.5 mg PO DAILY #0 tabs 09/20/21 magnesium chloride 64 mg (magnesium chloride) tablet,delayed release (Mag 64) 128 mg PO DAILY #0 tabs 09/20/21 magnesium hydroxide 400 mg/5 mL oral suspension 30 ml PO .PRN X 1 PRN Constipation #0 mL 09/20/21 menthol 0.44 %-zinc oxide 20.6 % topical ointment (Calmoseptine) 1 applic topical BID@0600,2200 #0 grams 09/20/21 metoprolol tartrate 25 mg tablet 12.5 mg PO BID #0 tabs 09/20/21 mirtazapine 15 mg tablet 15 mg PO 2000 #0 tabs 09/20/21 nicotine 7 mg/24 hr daily transdermal patch 7 mg transdermal DAILY #0 ea 09/20/21 pantoprazole 20 mg tablet,delayed release 20 mg PO DAILY #0 tabs 09/20/21 sennosides 8.6 mg-docusate sodium 50 mg tablet (Stool Softener-Stimulant Laxative) 2 tab PO BID #1 TAB 09/20/21 tamsulosin 0.4 mg capsule 0.4 mg PO DAILY@1730 #0 caps 09/20/21 umeclidinium 62.5 mcg/actuation blister powder for inhalation (Incruse Ellipta) 1 puff inhalation DAILY #0 ea 09/20/21 Hospital Course Operations None Procedures - (MBS X 2 on 08/22/2021 and 09/07/2021.) Summary of Care Provided Minutes Spent on Discharge: 50 Hospital Course: SUDHIR BELL, is a 70 YO M with a PMH of CAD, remote TX, hx of CABG/PCI with multiple stents, tobacco dependence, HTN, HLD, DM II, COPD and Depression who had sudden onset of R side weakness and slurred speech on 08/09/21 while walking in a parking lot.? He was taken to [facility] ED and at arrival was noted to be in AF with a BP of 170/109.? A noncontrast CT brain revealed no acute findings.? CTA findings were consistent with a left M2 branch occlusion.? TPA was administered and the patient was transferred to [facility] for mechanical thrombectomy/TNK. Following TPA and thrombectomy he had residual R side weakness and expressive aphasia. CT post TPA and TNK showed petechial hemorrhage in the area of the stroke. ? His admission to [facility] was complicated by a E. Coli UTI and he reportedly received a full course of antibiotics.? Other complications included ARF (seen by Dr. Summers/creat peaked at 2.43), urine retention, pulmonary edema and newly diagnosed CM with an EF of 34%. On ECHO he also has severe posterior wall hypokinesis and mild LAE.? NO PFO.? 1-2+ MR.? While at [facility] he was seen by PT/OT/ST and a recommendation was made for acute rehab.? He was transferred to [facility] acute rehab on 08/19/21 for 3 hours of therapy daily to restore function/independence at or near his level prior to recent stroke.? NIH at DC from [facility] was 10. Sudhir was depressed and not eating at admission to rehab. He had been losing wt over the preceding year and I suspect it was because he had dysphagia and quit eating. I suspect he had a stroke earlier in the year and never sought attention. Since Wellbutrin decreases appetite and can lower seizure threshold he was tapered off Wellbutrin and he was started on Remeron 7.5 mg. He had no adverse SE so the dose was increased to 15 mg. At 15 mg he was sleeping well, eating much better, very motivated to do therapy so that he could go home. He did everything asked of him in therapy. Initially the BP was low and he was orthostatic. This did not respond to gentle hydration and we had to taper decrease the beta ion but, the HR increased. Consult was obtained with Dr. Bardales and Sudhir was started on Amiodarone to help control the HR when in AF without dropping the BP. BP stabilized and the orthostasis resolved. 2 weeks after the hemorrhagic conversion a repeat CTB was obtained and the petechial hemorrhage was stable. He was started on Eliquis and there were no complications. He will stay on Eliquis 5 mg BID for AF. At presentation to rehab he could not ambulate. He started with standing at the wall rail and required max assist to take a few steps on the wall rail with the PT advancing the leg for him. He was constantly pushing to the R due to R side neglect. He did amazingly well and prior to DC he was ambulating up to 225' with a WW at CGA on even surfaces and up to 150' with a WW outside on uneven surfaces. He could do 6-7 stands in 30 sec but, still is having trouble with LOB forward. He was standby assist for bed mobility and min/CGA for coming to stand and pivoting. He was able to ascend/descend three 4 inch steps/2 7 steps at [facility] while keeping the R hand on the rail for support. He could also do a curb step with a WW at [facility]. He was able to converse with staff but, still having problems with understanding speech at times. He required only minimal assistance for grooming. He was standby assist for bathing and CGA for upper body dressing but, required more assistance with LB dressing. Sudhir has been a heavy smoker for a long time. When he came to the rehab unit BS's were markedly diminished throughout. Prior to DC he had good air exchange in all lung levy and no cough. Pulse ox on RA was in the high 90's. Sudhir's is not able to assist him at home and she has some cognitive dysfunction. The decision was made by The family to have Sudhir go to a SNF following his stay in rehab. Medicare denied SNF and felt he had progressed enough to be able to go home with assistance from his family. A peer to peer review was done but, he was denied. Sudhir was transferred to a non-skilled unit on 09/25/21 at [facility]. Sudhir received smoking cessation counselling while in rehab and he was given a nicotine patch which was weaned down to 7 mg prior to DC. I am hopeful that he will not resume smoking. Sudhir was able to urinate prior to DC without any significant retention but, he will need to follow up with urology post DC for the elevated PSA at 11.7. Sudhir also has a small nodule in the R parotid that will need to be followed up as an OP. Diabetes was well controlled at [facility] with no hypoglycemia. He was started on Jardiance to augment his risk for future cardiovascular and cerebrovascular events. Jardiance has also been shown to be of benefit with CHF. The NIHSS was not repeated at [facility] because I went out of town and was not present on the day he was discharged. Physical Exam Const alert and no apparent distress Constitutional Narrative: Smiling and talkative General Appearance: cooperative HEENT normocephalic and moist oral mucous membranes Eyes PERRL and EOMs intact bilaterally Eyes Narrative: No scleral icterus, no conjunctival injection, no discharge from the eyes and no mattering of the eyelids. Resp normal respiratory effort, normal air movement and clear to auscultation bilaterally Resp Narrative: Good air exchange throughout with no wheezes, rhonchi or rales. Effort and Inspection: Negative for tachypneic Cardio Cardio Narrative: Remain in atrial fibrillation with good rate control. No gallops. Denies lightheadedness. GI normal to inspection, nondistended, normoactive bowel sounds, soft to palpation and non-tender GI Narrative: Eating well and denies nausea/vomiting/abdominal pain. Having regular bowel movements. Narrative: Urinating with no significant post void residuals. Extremity no calf tenderness and no pedal edema Extremity Narrative: Skin General Skin Exam: no breakdown Rashes: no rashes Neuro CN's II-XII intact bilaterally Neuro Narrative: Right side neglect has mostly resolved. He has increasing strength in the right upper extremity and has much more movement than at admission. Fine motor coordination is still lacking. He has ambulated outside with a FWW up to 1200 ft on various surfaces at [facility] with no LOB. He is talking more and having conversations with staff and visitors now. Psych cooperative, affect normal, denies homicidal ideation and denies suicidal ideation Psych Narrative: Sleeping well and eating well. Makes good eye contact. Appearance: appropriate Medical Records Data Medical Nutrition Assessment Dietitian: Malnutrition Criteria Met Start: 08/20/21 10:19 Freq: Status: Active Protocol: Document 08/31/21 16:09 (Rec: 08/31/21 16:09 [id number]) Nutrition Malnutrition Evidence of Malnutrition Exists Yes Malnutrition (severe): Acute Illness/Injury Evidenced By Suboptimal Energy Intake ( Severe),Weight Loss (Severe), Physical Changes (Moderate) Clinical Problem Acute Disease or Injury Related Malnutrition Etiology Severe protein-calorie malnutrition related to difficulty swallowing and inadequate oral intake Signs/Symptoms PO intake 50% or less of estimated energy needs at meals meals; unintentional 13% wt loss >2 weeks; fat/muscle loss per physical exam ( clavicle, acromion process, buccal/orbital/temporal areas, upper arms); BMI 19.4 Status Active Problem Recommendation Dietitian Recommendations/Changes Will continue liberal regular diet w/ consistency/texture as per [employer]. Will continue ensure pudding to with breakfast and magic cup to w/ lunch and dinner for increased nutrition if consumed. Weight / BMI Weight Weight: 146 lb 6.191 oz ABG / Lab / Microbiology Data Result Diagrams: 09/17/21 05:11 09/17/21 05:11 Laboratory: Laboratory Results - last 24 hr 09/19/21 16:02: POC Glucose 153 H 09/19/21 22:27: POC Glucose 194 H 09/20/21 06:35: POC Glucose 136 H Microbiology: Microbiology 09/20/21 12:25 Nasal Secretion SARS-CoV-2 Antigen (Rapid) - Final 09/09/21 16:00 Urine Catheter - Catheter Urine Culture - Final Presumptive E. coli 08/19/21 23:10 Urine Catheter - Catheter Urine Culture - Final Culture exhibits no growth. Indicators for Scoring Admitted with or Primary Diagnosis of CVA/Stroke: Yes Hx of CVA/Stroke: Yes Modified Braxton Score MRS Score at time of Evaluation: 3-Moderate disability (He was a 5 at admission to rehab. ) NIHSS Stroke Questions Stroke Team Activated: No (pt in a rehab unit for a completed CVA.) D/C Instructions Please Follow Up With: Cardiology Meaningful Use Info Meaningful Use Diagnoses (Choose all that apply): Ischemic CVA (with hemorrhagic conversion after TPA) CVA Therapy Assessed for PT,OT and/or ST?: Yes Ischemic Stroke Antithrombotic order at d/c?: Yes Dx of Atrial fib/flutter?: Yes Anticoagulant at discharge?: Yes Statins at discharge?: Yes Primary Dx Acute Ischemic CVA?: Yes IV tPA ordered during stay?: No Reason IV t-PA not ordered: Treatment not Indicated (Sudhir was admitted to acute rehab following a completed CVA) Discharge Plan Admission Admit Date/Time: 08/19/21 17:17 Primary Reason for Your Visit: CVA with R hemiparesis, R side neglect, dysphagia and aphasia. Attending Provider: Melissa Mcarthur Primary Care Provider: GLADIS WETZEL Consulting Providers: Zack Bardales Instructions Additional Instructions / Restrictions: Discharge to [facility] 09/24/2021, nonskilled. Discharge Orders/Prescriptions Prescriptions: New acetaminophen [Tylenol] 325 mg Tablet 650 mg PO Q6H PRN PRN (Reason: Pain Score 1-10) Qty: 0 0RF amiodarone 200 mg Tablet 200 mg PO DAILY Qty: 0 0RF aspirin 81 mg Tablet,Delayed Release (Dr/Ec) 81 mg PO BREAKFAST Qty: 0 0RF albuterol sulfate [Ventolin HFA] 90 mcg/actuation Hfa Aerosol Inhaler 2 puff inhalation Q4H PRN PRN (Reason: SOB &/OR WHEEZING) Qty: 0 0RF Eliquis 5 mg Tablet 5 mg PO BID Qty: 0 0RF atorvastatin 80 mg Tablet 80 mg PO QHS Qty: 0 0RF bisacodyl 10 mg Suppository 10 mg AK .PRN X 1 PRN (Reason: Constipation) Qty: 0 0RF clopidogrel 75 mg Tablet 75 mg PO DAILY Qty: 0 0RF furosemide 20 mg Tablet 20 mg PO Q48H Qty: 0 0RF Jardiance 10 mg Tablet 10 mg PO DAILY Qty: 0 0RF fluticasone propion-salmeterol 232-14 mcg/actuation Aerosol Powdr Breath Activated 1 puff inhalation Q12 Qty: 0 0RF insulin glargine-yfgn 100 unit/mL (3 mL) Insulin Pen 8 unit subcut QHS Qty: 0 0RF insulin lispro [Humalog KwikPen Insulin] 100 unit/mL Insulin Pen 4 unit subcut SUPPER Qty: 1 0RF Rx Instructions: 4 units with supper daily insulin lispro [Humalog KwikPen Insulin] 100 unit/mL Insulin Pen 8 unit subcut BREAKFAST Qty: 0 0RF magnesium hydroxide 400 mg/5 mL Suspension 30 ml PO .PRN X 1 PRN (Reason: Constipation) Qty: 0 0RF lisinopril 2.5 mg Tablet 2.5 mg PO DAILY Qty: 0 0RF Mag 64 64 mg Tablet,Delayed Release (Dr/Ec) 128 mg PO DAILY Qty: 0 0RF menthol-zinc oxide [Calmoseptine] 0.44-20.6 % Ointment 1 applic topical BID@0600,2200 Qty: 0 0RF Protocol: *Topical Application Instructions APPLICATION INSTRUCTIONS: to coccyx sennosides-docusate sodium [Stool Softener-Stimulant Laxat] 8.6-50 mg Tablet 2 tab PO BID Qty: 1 0RF pantoprazole 20 mg Tablet,Delayed Release (Dr/Ec) 20 mg PO DAILY Qty: 0 0RF mirtazapine 15 mg Tablet 15 mg PO 1999 Qty: 0 0RF nicotine 7 mg/24 hr Patch 24 Hour 7 mg transdermal DAILY Qty: 0 0RF metoprolol tartrate 25 mg Tablet 12.5 mg PO BID Qty: 0 0RF tamsulosin 0.4 mg Capsule 0.4 mg PO DAILY@1730 Qty: 0 0RF Incruse Ellipta 62.5 mcg/actuation Blister With Device 1 puff inhalation DAILY Qty: 0 0RF Continued gabapentin [Neurontin] 300 mg Capsule 300 mg PO DAILY Discontinued aspirin 81 mg Tablet,Chewable 81 mg PO DAILY furosemide 20 mg Tablet 40 mg PO DAILY Referrals / Follow Up: GLADIS WETZEL [Other] Zack Bardales MD [STAFF PHYSICIAN] - 10/15/21 1:00 pm Disposition Disposition (needs filled in before D/C Order can be placed): NonSkilled NH/Intermed Care Charges/Coding Visit Charges Inpatient E&M: 44650 Disch Hosp
[2021-09-20] MEDS: Tamsulosin HCl 0.4 MG Capsule PO (16:41)
[2021-09-20] MEDS: Insulin Lispro 100 UNIT/ML INSULN.PEN SC (17:14)
[2021-09-20 18:25] LABS: Bedside Glucose 195 mg/dL (74-106)
[2021-09-20 20:34] VITALS: BP 118/73; PULSE 69; RESP 16; TEMP 36.3; O2SAT 96
[2021-09-20] MEDS: Mirtazapine 15 MG Tablet PO (20:48)
[2021-09-20 20:50] VITALS: BP 118/73; PULSE 69
[2021-09-20] MEDS: Atorvastatin Calcium 80 MG Tablet PO (20:50)
[2021-09-20] MEDS: Nystatin Powder 15gm Bottle 1 APPLIC TOPICAL (20:52)
[2021-09-20] MEDS: Insulin Glargine-YFGN 100 UNIT/ML Pen 8 UNIT SC (21:13)
[2021-09-20 22:05] LABS: Bedside Glucose 214 mg/dL (74-106)
[2021-09-21] VITALS (7 sets, daily range): BP systolic 102–125; BP diastolic 54–69; PULSE 61–83; RESP 15–16; TEMP 35.9–36.4; O2SAT 90–98
[2021-09-21] MEDS: Nystatin Powder 15gm Bottle 1 APPLIC TOPICAL ×2 (06:15→22:02)
[2021-09-21] MEDS: Arthritis Pain Compound 60 CLICK TUBE TOPICAL ×5 (06:15→22:01)
[2021-09-21] MEDS: Menthol/Lanolin/Calamine/Znox 113 GM Tube 1 APPLIC TOPICAL ×2 (06:15→22:01)
[2021-09-21 06:35] LABS: Bedside Glucose 126 mg/dL (74-106)
[2021-09-21] MEDS: Senna/Docusate Sodium 1 Tablet 2 TABLET PO ×2 (07:40→21:59)
[2021-09-21] MEDS: Metoprolol Tartrate 25 MG Tablet 12.5 MG PO ×2 (07:40→22:00)
[2021-09-21] MEDS: Clopidogrel Bisulfate 75 MG Tablet PO (07:41)
[2021-09-21] MEDS: Aspirin E.C. 81 MG Tablet PO (07:42)
[2021-09-21] MEDS: Furosemide 20 MG Tablet PO (07:42)
[2021-09-21] MEDS: Pantoprazole Sodium 20 MG Tablet PO (07:42)
[2021-09-21] MEDS: Amiodarone 200 MG Tablet PO (07:42)
[2021-09-21] MEDS: Fluticasone/Salmeterol 232-14 Inhaler 1 PUFF INHALATION ×2 (07:43→22:01)
[2021-09-21] MEDS: Lisinopril 2.5 MG Tablet PO (07:43)
[2021-09-21] MEDS: APIXABAN 5 MG TABLET PO ×2 (07:43→22:00)
[2021-09-21] MEDS: Empagliflozin 10 MG Tablet PO (07:43)
[2021-09-21] MEDS: Magnesium Chloride 64 MG Delay Rel.Tablet 128 MG PO (07:43)
[2021-09-21] MEDS: Umeclidinium Bromide Inhaler 1 PUFF INHALATION (07:44)
[2021-09-21] MEDS: Insulin Lispro 100 UNIT/ML INSULN.PEN 8 UNIT SC (07:48)
[2021-09-21] MEDS: Gabapentin 300 MG Capsule PO (07:51)
--- NOTE | 2021-09-21 10:04 | CASEMGMT ---
Addendum entered by Janey Mejia 09/21/21 16:11: P2P completed and denied. Updated [facility] and [facility]. [facility] admissions had left for the day and TELECOM ANALYST is reviewing clinicals but most likely will not get an answer back until Sunday 09/24. There needs to be an accepting facility to complete 7000 to submit for LOC. Updated son and dtr. Son stated if [facility] cannot accept, pt can transfer to [facility]. Updated IDT. SW to continue to follow. Addendum entered by Janey Mejia 09/21/21 14:37: Dr. Mcarthur has called the P2P twice - on hold for extended period of time and left two voicemails. [facility] does not have bed availability to accept anymore. [place], son,contacted SW requesting an update, stating did test negative for COVID but is sick and to communicate all updates to him. Explained below information to son. Son requested a referral to the final local facility, [facility]. Referral made. Awaiting outcome. Updated [facility] as well whom dtr, Sammi, called for an update and they provided that to the dtr. Updated IDT. Pt's DC is on hold. If P2P is denied, a LOC will need submitted for pt to transfer under Medicaid. SW to continue to follow. Original Note: Social Work Contacted [facility] to inquire about precert/DC plan. They stated they just had a patient that needed to go into isolation and they no longer have a bed available. However, they do have a sister facility, [facility] in [place], that can accept pt. Once [facility] has a bed open, pt can transfer to them, if auth can be transferred. [facility] has not provided an outcome at this time. SW needs to get approval from . Contacted - voicemail is full. Will continue to attempt. Contacted dtr, Sammi, to update her. At that time, was returning this worker's call. Took 's call. explained she thinks she has COVID and is going to call the dt. However, was still able to answer SW questions. prefers pt does not go to [facility] d/t to location. provided two other SNFs for SW to refer to. Referrals made to [facility] and [facility]. Both SNFs have beds - will review clinicals for official acceptance. Received call from Amanda Michel that [facility] is requesting P2P be completed by 3 pm today to approve or deny SNF. If approved, that auth that be transferred to any SNF. Inquired to about completing - Dr to complete. RAQUEL contacted [facility] to schedule P2P per Dr request. Auth#[id number]. Provided information to Dr to call and complete. Received call from [facility] and stated they were flooded with referrals at the time time and no longer has beds to accept pt. Will await outcome from [facility]. Janey Mejia, JEWEL STAKER [employer]IGAR [employer]BAC[employer] REHANDLER
[2021-09-21] MEDS: Tamsulosin HCl 0.4 MG Capsule PO (16:51)
[2021-09-21] MEDS: Insulin Lispro 100 UNIT/ML INSULN.PEN SC (16:57)
[2021-09-21 17:31] LABS: Bedside Glucose 163 mg/dL (74-106)
[2021-09-21] MEDS: Atorvastatin Calcium 80 MG Tablet PO (21:59)
[2021-09-21] MEDS: Mirtazapine 15 MG Tablet PO (22:01)
[2021-09-21] MEDS: Insulin Glargine-YFGN 100 UNIT/ML Pen 8 UNIT SC (22:35)
[2021-09-21 23:31] LABS: Bedside Glucose 176 mg/dL (74-106)
--- NOTE | 2021-09-22 03:44 | NURSING ---
REVIEWED AND AGREE WITH APPOINTMENT MANAGER'S FUNCTIONAL ASSESSMENT AND HANDOFF CHARTING.
[2021-09-22] MEDS: Arthritis Pain Compound 60 CLICK TUBE TOPICAL ×4 (06:57→19:34)
[2021-09-22] MEDS: Nystatin Powder 15gm Bottle 1 APPLIC TOPICAL ×2 (06:58→19:35)
[2021-09-22] MEDS: Menthol/Lanolin/Calamine/Znox 113 GM Tube 1 APPLIC TOPICAL ×2 (06:58→19:37)
[2021-09-22 07:15] LABS: Bedside Glucose 122 mg/dL (74-106)
[2021-09-22] MEDS: Insulin Lispro 100 UNIT/ML INSULN.PEN 8 UNIT SC (07:52)
[2021-09-22] MEDS: Aspirin E.C. 81 MG Tablet PO (07:53)
[2021-09-22 09:37] VITALS: BP 125/66; PULSE 85; RESP 16; TEMP 36.3; O2SAT 96
[2021-09-22 10:53] VITALS: PULSE 72
[2021-09-22] MEDS: Metoprolol Tartrate 25 MG Tablet 12.5 MG PO ×2 (10:53→19:36)
[2021-09-22] MEDS: Senna/Docusate Sodium 1 Tablet 2 TABLET PO ×2 (10:54→19:38)
[2021-09-22] MEDS: APIXABAN 5 MG TABLET PO ×2 (10:54→19:37)
[2021-09-22] MEDS: Lisinopril 2.5 MG Tablet PO (10:55)
[2021-09-22] MEDS: Pantoprazole Sodium 20 MG Tablet PO (10:55)
[2021-09-22] MEDS: Magnesium Chloride 64 MG Delay Rel.Tablet 128 MG PO (10:55)
[2021-09-22] MEDS: Empagliflozin 10 MG Tablet PO (10:55)
[2021-09-22] MEDS: Clopidogrel Bisulfate 75 MG Tablet PO (10:55)
[2021-09-22] MEDS: Amiodarone 200 MG Tablet PO (11:09)
[2021-09-22] MEDS: Gabapentin 300 MG Capsule PO (11:09)
[2021-09-22] MEDS: Umeclidinium Bromide Inhaler 1 PUFF INHALATION (11:09)
[2021-09-22] MEDS: Fluticasone/Salmeterol 232-14 Inhaler 1 PUFF INHALATION ×2 (11:09→19:37)
[2021-09-22 17:05] LABS: Bedside Glucose 159 mg/dL (74-106)
[2021-09-22] MEDS: Tamsulosin HCl 0.4 MG Capsule PO (17:29)
[2021-09-22] MEDS: Insulin Lispro 100 UNIT/ML INSULN.PEN SC (17:29)
[2021-09-22 19:21] VITALS: BP 112/60; PULSE 69; RESP 16; TEMP 37; O2SAT 100
[2021-09-22] MEDS: Mirtazapine 15 MG Tablet PO (19:34)
[2021-09-22] MEDS: Atorvastatin Calcium 80 MG Tablet PO (19:35)
[2021-09-22 19:36] VITALS: BP 112/60; PULSE 69
[2021-09-22 21:25] LABS: Bedside Glucose 196 mg/dL (74-106)
[2021-09-22] MEDS: Insulin Glargine-YFGN 100 UNIT/ML Pen 8 UNIT SC (22:37)
[2021-09-23] MEDS: Arthritis Pain Compound 60 CLICK TUBE TOPICAL ×3 (05:01→17:35)
[2021-09-23] MEDS: Nystatin Powder 15gm Bottle 1 APPLIC TOPICAL ×2 (05:02→20:27)
[2021-09-23] MEDS: Menthol/Lanolin/Calamine/Znox 113 GM Tube 1 APPLIC TOPICAL ×2 (05:02→20:27)
[2021-09-23 06:56] LABS: Bedside Glucose 112 mg/dL (74-106)
[2021-09-23 07:35] VITALS: BP 119/60; PULSE 60; RESP 16; TEMP 35.9; O2SAT 98
[2021-09-23] MEDS: Aspirin E.C. 81 MG Tablet PO (07:39)
[2021-09-23] MEDS: Insulin Lispro 100 UNIT/ML INSULN.PEN 8 UNIT SC (07:40)
[2021-09-23 09:44] VITALS: PULSE 68
[2021-09-23] MEDS: Magnesium Chloride 64 MG Delay Rel.Tablet 128 MG PO (09:44)
[2021-09-23] MEDS: Metoprolol Tartrate 25 MG Tablet 12.5 MG PO ×2 (09:44→20:26)
[2021-09-23] MEDS: Furosemide 20 MG Tablet PO (09:45)
[2021-09-23] MEDS: Senna/Docusate Sodium 1 Tablet 2 TABLET PO ×2 (09:45→20:26)
[2021-09-23] MEDS: Gabapentin 300 MG Capsule PO (09:45)
[2021-09-23] MEDS: Pantoprazole Sodium 20 MG Tablet PO (09:45)
[2021-09-23] MEDS: Empagliflozin 10 MG Tablet PO (09:46)
[2021-09-23] MEDS: Amiodarone 200 MG Tablet PO (09:46)
[2021-09-23] MEDS: Clopidogrel Bisulfate 75 MG Tablet PO (09:46)
[2021-09-23] MEDS: APIXABAN 5 MG TABLET PO ×2 (09:46→20:26)
[2021-09-23] MEDS: Lisinopril 2.5 MG Tablet PO (09:46)
[2021-09-23] MEDS: Umeclidinium Bromide Inhaler 1 PUFF INHALATION (09:54)
[2021-09-23] MEDS: Fluticasone/Salmeterol 232-14 Inhaler 1 PUFF INHALATION ×2 (09:54→20:28)
[2021-09-23 16:30] LABS: Bedside Glucose 136 mg/dL (74-106)
[2021-09-23] MEDS: Tamsulosin HCl 0.4 MG Capsule PO (17:31)
[2021-09-23] MEDS: Insulin Lispro 100 UNIT/ML INSULN.PEN SC (17:32)
[2021-09-23 19:28] VITALS: BP 127/62; PULSE 71; RESP 16; TEMP 36.2; O2SAT 99
[2021-09-23 20:26] VITALS: BP 127/62; PULSE 71
[2021-09-23] MEDS: Atorvastatin Calcium 80 MG Tablet PO (20:26)
[2021-09-23] MEDS: Mirtazapine 15 MG Tablet PO (20:26)
[2021-09-23 21:51] LABS: Bedside Glucose 153 mg/dL (74-106)
[2021-09-23] MEDS: Insulin Glargine-YFGN 100 UNIT/ML Pen 8 UNIT SC (21:58)
[2021-09-24] MEDS: Menthol/Lanolin/Calamine/Znox 113 GM Tube 1 APPLIC TOPICAL ×2 (04:37→20:58)
[2021-09-24] MEDS: Arthritis Pain Compound 60 CLICK TUBE TOPICAL ×5 (04:38→20:57)
[2021-09-24] MEDS: Nystatin Powder 15gm Bottle 1 APPLIC TOPICAL ×2 (04:38→21:01)
[2021-09-24 06:50] LABS: Bedside Glucose 112 mg/dL (74-106)
[2021-09-24] MEDS: Aspirin E.C. 81 MG Tablet PO (07:55)
[2021-09-24] MEDS: Amiodarone 200 MG Tablet PO (07:55)
[2021-09-24] MEDS: Fluticasone/Salmeterol 232-14 Inhaler 1 PUFF INHALATION ×2 (07:56→20:58)
[2021-09-24] MEDS: APIXABAN 5 MG TABLET PO ×2 (07:56→20:58)
[2021-09-24] MEDS: Umeclidinium Bromide Inhaler 1 PUFF INHALATION (07:57)
[2021-09-24] MEDS: Magnesium Chloride 64 MG Delay Rel.Tablet 128 MG PO (07:58)
[2021-09-24] MEDS: Gabapentin 300 MG Capsule PO (07:58)
[2021-09-24] MEDS: Lisinopril 2.5 MG Tablet PO (07:59)
[2021-09-24] MEDS: Pantoprazole Sodium 20 MG Tablet PO (07:59)
[2021-09-24] MEDS: Senna/Docusate Sodium 1 Tablet 2 TABLET PO ×2 (08:01→21:00)
[2021-09-24 08:02] VITALS: BP 103/65; PULSE 60
[2021-09-24] MEDS: Metoprolol Tartrate 25 MG Tablet 12.5 MG PO ×2 (08:02→20:59)
[2021-09-24] MEDS: Empagliflozin 10 MG Tablet PO (08:23)
[2021-09-24] MEDS: Insulin Lispro 100 UNIT/ML INSULN.PEN 8 UNIT SC (08:27)
[2021-09-24 08:50] VITALS: BP 103/65; PULSE 60; RESP 15; TEMP 36.8; O2SAT 96
--- NOTE | 2021-09-24 09:22 | CASEMGMT ---
Addendum entered by Janey Mejia 09/24/21 16:17: Received LOC results - approved. Contacted [facility], son, IDT, pt. All agreeable. Spoke with brother to schedule transport at 10 am. Plan: DC 09/25 [facility], nonskilled Addendum entered by Janey Mejia 09/24/21 14:38: Spoke with [facility] and they accepted pt. Updated son. Son agreeable. 7000 completed and LOC submitted. Will await outcome to set DC date. Original Note: Social Work Left message to f/u with [facility]. Updated Amanda Michel. Updated IDT. Will continue to follow. BRIAN Jensen OUTBOARD MOTORBOAT RIGGER
[2021-09-24] MEDS: Clopidogrel Bisulfate 75 MG Tablet PO (10:36)
[2021-09-24] MEDS: Tamsulosin HCl 0.4 MG Capsule PO (16:26)
[2021-09-24] MEDS: Insulin Lispro 100 UNIT/ML INSULN.PEN SC (16:36)
[2021-09-24 16:55] LABS: Bedside Glucose 148 mg/dL (74-106)
--- NOTE | 2021-09-24 18:29 | PCM.DC.SUM ---
Providers Date of Admission: 08/19/21 Primary Care Physician: GLADIS WETZEL Consultations 08/21/21 13:11 Consult: Cardiology Routine Consulting Provider: Zack Bardales Reason for Consult: CM/AF/embolic CVA/orthostatic hypotension EMERGENT Consult: No MD Notified: Yes Date Notified: 08/21/21 Time Notified: 13:11 Method of Notification: Text Reason For Visit: STROKE Diagnosis Discharge Diagnosis (1) Arterial ischemic stroke, MCA, left, acute: Status: Acute Code(s): I63.512 - Cerebral infarction due to unspecified occlusion or stenosis of left middle cerebral artery (2) Petechial hemorrhage: Status: Acute Code(s): R23.3 - Spontaneous ecchymoses (3) Acute right hemiparesis: Status: Acute Code(s): G81.91 - Hemiplegia, unspecified affecting right dominant side (4) Dysphagia: Status: Acute Code(s): R13.10 - Dysphagia, unspecified Qualifiers: Dysphagia type: oropharyngeal phase Qualified Code(s): R13.12 - Dysphagia, oropharyngeal phase (5) [place]-neglect of right side: Status: Resolved Code(s): R41.4 - Neurologic neglect syndrome (6) Aphasia: Status: Acute Code(s): R47.01 - Aphasia (7) Right-sided visual neglect: Status: Resolved Code(s): R41.4 - Neurologic neglect syndrome (8) Atrial fibrillation: Status: Acute Code(s): I48.91 - Unspecified atrial fibrillation Qualifiers: Atrial fibrillation type: unspecified Qualified Code(s): I48.91 - Unspecified atrial fibrillation (9) Chronic anticoagulation: Status: Chronic Code(s): Z79.01 - long term care social worker (current) use of anticoagulants (10) Cardiomyopathy: Status: Acute Code(s): I42.9 - Cardiomyopathy, unspecified Qualifiers: Cardiomyopathy type: unspecified Qualified Code(s): I42.9 - Cardiomyopathy, unspecified (11) Severe protein-calorie malnutrition: Status: Acute Code(s): E43 - Unspecified severe protein-calorie malnutrition (12) Elevated PSA, between 10 and less than 20 ng/ml: Status: Acute Code(s): R97.20 - Elevated prostate specific antigen [PSA] (13) Diabetes: Status: Acute Code(s): E11.9 - Type 2 diabetes mellitus without complications Qualifiers: Diabetes mellitus type: type 2 Diabetes mellitus intermediate teacher insulin use: with care home use Diabetes mellitus complication status: with circulatory complication (14) Hypertension: Status: Chronic Code(s): I10 - Essential (primary) hypertension Qualifiers: Hypertension type: primary hypertension Qualified Code(s): I10 - Essential (primary) hypertension (15) Urine retention: Status: Resolved Code(s): R33.9 - Retention of urine, unspecified (16) Hypomagnesemia: Status: Acute Code(s): E83.42 - Hypomagnesemia (17) Catheter-associated urinary tract infection: Status: Resolved Code(s): T83.511A - Infection and inflammatory reaction due to indwelling urethral catheter, initial encounter; N39.0 - Urinary tract infection, site not specified (18) Chronic renal failure, stage 3a: Status: Acute Code(s): N18.31 - Chronic kidney disease, stage 3a (19) Depression determined by examination: Status: Acute Code(s): F32.A - Depression, unspecified (20) HLD (hyperlipidemia): Status: Acute Code(s): E78.5 - Hyperlipidemia, unspecified (21) S/P CABG (coronary artery bypass graft): Status: Acute Code(s): Z95.1 - Presence of aortocoronary bypass graft (22) Diabetic nephropathy with proteinuria: Status: Acute Code(s): E11.21 - Type 2 diabetes mellitus with diabetic nephropathy (23) Orthostatic hypotension: Status: Resolved Code(s): I95.1 - Orthostatic hypotension (24) COPD (chronic obstructive pulmonary disease): Status: Chronic Code(s): J44.9 - Chronic obstructive pulmonary disease, unspecified Qualifiers: COPD type: unspecified COPD Qualified Code(s): J44.9 - Chronic obstructive pulmonary disease, unspecified (25) CAD (coronary artery disease): Status: Acute Code(s): I25.10 - Atherosclerotic heart disease of [place] coronary artery without angina pectoris Qualifiers: Coronary Disease-Associated Artery/Lesion type: [place] artery [place] vs. transplanted heart: [place] heart Associated angina: without angina Qualified Code(s): I25.10 - Atherosclerotic heart disease of [place] coronary artery without angina pectoris (26) GERD (gastroesophageal reflux disease): Status: Chronic Code(s): K21.9 - Gastro-esophageal reflux disease without esophagitis Qualifiers: Esophagitis presence: esophagitis presence not specified Qualified Code(s): K21.9 - Gastro-esophageal reflux disease without esophagitis Medications at Discharge Home Medications gabapentin 300 mg capsule (Neurontin) 300 mg PO DAILY Check with primary doctor 08/19/21 acetaminophen 325 mg tablet (Tylenol) 650 mg PO Q6H PRN PRN Pain Score 1-10 #0 tabs 09/20/21 albuterol sulfate 90 mcg/actuation aerosol inhaler (Ventolin HFA) 2 puff inhalation Q4H PRN PRN SOB &/OR WHEEZING #0 grams 09/20/21 amiodarone 200 mg tablet 200 mg PO DAILY #0 tabs 09/20/21 apixaban 5 mg tablet (Eliquis) 5 mg PO BID #0 tabs 09/20/21 aspirin 81 mg tablet,delayed release 81 mg PO BREAKFAST #0 tabs 09/20/21 atorvastatin 80 mg tablet 80 mg PO QHS #0 tabs 09/20/21 bisacodyl 10 mg rectal suppository 10 mg MN .PRN X 1 PRN Constipation #0 ea 09/20/21 clopidogrel 75 mg tablet 75 mg PO DAILY #0 tabs 09/20/21 empagliflozin 10 mg tablet (Jardiance) 10 mg PO DAILY #0 tabs 09/20/21 fluticasone 232 mcg-salmeterol 14 mcg/actuation breath activated powdr 1 puff inhalation Q12 #0 ea 09/20/21 furosemide 20 mg tablet 20 mg PO Q48H #0 tabs 09/20/21 insulin glargine-yfgn 100 unit/mL (3 mL) subcutaneous pen 8 unit (0.08 mL) subcut QHS #0 mL 09/20/21 insulin lispro 100 unit/mL subcutaneous pen (Humalog KwikPen (U-100) Insulin) 4 unit (0.04 mL) subcut SUPPER #1 mL 09/20/21 insulin lispro 100 unit/mL subcutaneous pen (Humalog KwikPen (U-100) Insulin) 8 unit (0.08 mL) subcut BREAKFAST #0 mL 09/20/21 lisinopril 2.5 mg tablet 2.5 mg PO DAILY #0 tabs 07/07/22 magnesium chloride 64 mg (magnesium chloride) tablet,delayed release (Mag 64) 128 mg PO DAILY #0 tabs 09/20/21 magnesium hydroxide 400 mg/5 mL oral suspension 30 ml PO .PRN X 1 PRN Constipation #0 mL 09/20/21 menthol 0.44 %-zinc oxide 20.6 % topical ointment (Calmoseptine) 1 applic topical BID@0600,2200 #0 grams 09/20/21 metoprolol tartrate 25 mg tablet 12.5 mg PO BID #0 tabs 09/20/21 mirtazapine 15 mg tablet 15 mg PO 2000 #0 tabs 09/20/21 nicotine 7 mg/24 hr daily transdermal patch 7 mg transdermal DAILY #0 ea 09/20/21 pantoprazole 20 mg tablet,delayed release 20 mg PO DAILY #0 tabs 09/20/21 sennosides 8.6 mg-docusate sodium 50 mg tablet (Stool Softener-Stimulant Laxative) 2 tab PO BID #1 TAB 09/20/21 tamsulosin 0.4 mg capsule 0.4 mg PO DAILY@1730 #0 caps 09/20/21 umeclidinium 62.5 mcg/actuation blister powder for inhalation (Incruse Ellipta) 1 puff inhalation DAILY #0 ea 09/20/21 Hospital Course Operations None Procedures None Summary of Care Provided Minutes Spent on Discharge: 35 Hospital Course: 70 year old male with below past medical history hospitalized for stroke with right hemiparesis, admitted to with debility, here for greater than 3 hours daily rehabilitation, strengthening, prior to discharge. Discharge to [facility] 09/24/2021, nonskilled. Physical Exam Const alert General Appearance: cooperative HEENT normocephalic Eyes PERRL and EOMs intact bilaterally Neck supple, no JVD and no carotid bruits Resp normal respiratory effort, normal air movement and clear to auscultation bilaterally Cardio regular rate and regular rhythm GI normal to inspection, nondistended, normoactive bowel sounds, non-tender and non-distended Extremity normal capillary refill General Extremity: Negative for edema Skin no rashes or lesions noted General Skin Exam: no breakdown Neuro Neuro Narrative: Right hemiparesis. Psych affect normal Appearance: appropriate Medical Records Data Medical Nutrition Assessment Dietitian: Malnutrition Criteria Met Start: 08/20/21 10:19 Freq: Status: Active Protocol: Document 08/31/21 16:09 (Rec: 08/31/21 16:09 [id number]) Nutrition Malnutrition Evidence of Malnutrition Exists Yes Malnutrition (severe): Acute Illness/Injury Evidenced By Suboptimal Energy Intake ( Severe),Weight Loss (Severe), Physical Changes (Moderate) Clinical Problem Acute Disease or Injury Related Malnutrition Etiology Severe protein-calorie malnutrition related to difficulty swallowing and inadequate oral intake Signs/Symptoms PO intake 50% or less of estimated energy needs at meals meals; unintentional 13% wt loss >2 weeks; fat/muscle loss per physical exam ( clavicle, acromion process, buccal/orbital/temporal areas, upper arms); BMI 19.4 Status Active Problem Recommendation Dietitian Recommendations/Changes Will continue liberal regular diet w/ consistency/texture as per RIBBON TIER. Will continue ensure pudding to with breakfast and magic cup to w/ lunch and dinner for increased nutrition if consumed. Weight / BMI Weight Weight: 67.2 kg ABG / Lab / Microbiology Data Result Diagrams: 09/17/21 05:11 09/17/21 05:11 Laboratory: Laboratory Results - last 24 hr 09/23/21 21:31: POC Glucose 153 H 09/24/21 06:21: POC Glucose 112 H 09/24/21 16:34: POC Glucose 148 H Microbiology: Microbiology 09/20/21 12:25 Nasal Secretion SARS-CoV-2 Antigen (Rapid) - Final 09/09/21 16:00 Urine Catheter - Catheter Urine Culture - Final Presumptive E. coli 08/19/21 23:10 Urine Catheter - Catheter Urine Culture - Final Culture exhibits no growth. D/C Instructions Discharge Diet: No restrictions Discharge Activity: Return to Normal Activity, May Shower and Use Walker Weight Bearing Status: Weight bearing as tolerated Call your doctor if you observe: Fever of 101 or Higher, Inability to urinate, Inability to have a bowel movement, Shortness of breath, Dizziness, Fainting spells, Swelling in the ankles, Chest pain and Uncontrolled pain Additional Instructions: Discharge to [facility] 09/24/2021, nonskilled. Please Follow Up With: Cardiology Meaningful Use Info Meaningful Use Diagnoses (Choose all that apply): Ischemic CVA CVA Therapy Assessed for PT,OT and/or ST?: Yes Ischemic Stroke Antithrombotic order at d/c?: Yes Dx of Atrial fib/flutter?: Yes Anticoagulant at discharge?: Yes Statins at discharge?: Yes Primary Dx Acute Ischemic CVA?: Yes IV tPA ordered during stay?: Yes Discharge Plan Admission Admit Date/Time: 08/19/21 17:17 Primary Reason for Your Visit: CVA with R hemiparesis, R side neglect, dysphagia and aphasia. Attending Provider: Melissa Mcarthur Primary Care Provider: GLADIS WETZEL Consulting Providers: Zack Bardales Instructions Additional Instructions / Restrictions: Discharge to [facility] 09/24/2021, nonskilled. Discharge Orders/Prescriptions Prescriptions: New acetaminophen [Tylenol] 325 mg Tablet 650 mg PO Q6H PRN PRN (Reason: Pain Score 1-10) Qty: 0 0RF amiodarone 200 mg Tablet 200 mg PO DAILY Qty: 0 0RF aspirin 81 mg Tablet,Delayed Release (Dr/Ec) 81 mg PO BREAKFAST Qty: 0 0RF albuterol sulfate [Ventolin HFA] 90 mcg/actuation Hfa Aerosol Inhaler 2 puff inhalation Q4H PRN PRN (Reason: SOB &/OR WHEEZING) Qty: 0 0RF Eliquis 5 mg Tablet 5 mg PO BID Qty: 0 0RF atorvastatin 80 mg Tablet 80 mg PO QHS Qty: 0 0RF bisacodyl 10 mg Suppository 10 mg MN .PRN X 1 PRN (Reason: Constipation) Qty: 0 0RF clopidogrel 75 mg Tablet 75 mg PO DAILY Qty: 0 0RF furosemide 20 mg Tablet 20 mg PO Q48H Qty: 0 0RF Jardiance 10 mg Tablet 10 mg PO DAILY Qty: 0 0RF fluticasone propion-salmeterol 232-14 mcg/actuation Aerosol Powdr Breath Activated 1 puff inhalation Q12 Qty: 0 0RF insulin glargine-yfgn 100 unit/mL (3 mL) Insulin Pen 8 unit subcut QHS Qty: 0 0RF insulin lispro [Humalog KwikPen Insulin] 100 unit/mL Insulin Pen 4 unit subcut SUPPER Qty: 1 0RF Rx Instructions: 4 units with supper daily insulin lispro [Humalog KwikPen Insulin] 100 unit/mL Insulin Pen 8 unit subcut BREAKFAST Qty: 0 0RF magnesium hydroxide 400 mg/5 mL Suspension 30 ml PO .PRN X 1 PRN (Reason: Constipation) Qty: 0 0RF lisinopril 2.5 mg Tablet 2.5 mg PO DAILY Qty: 0 0RF Mag 64 64 mg Tablet,Delayed Release (Dr/Ec) 128 mg PO DAILY Qty: 0 0RF menthol-zinc oxide [Calmoseptine] 0.44-20.6 % Ointment 1 applic topical BID@0600,2200 Qty: 0 0RF Protocol: *Topical Application Instructions APPLICATION INSTRUCTIONS: to coccyx sennosides-docusate sodium [Stool Softener-Stimulant Laxat] 8.6-50 mg Tablet 2 tab PO BID Qty: 1 0RF pantoprazole 20 mg Tablet,Delayed Release (Dr/Ec) 20 mg PO DAILY Qty: 0 0RF mirtazapine 15 mg Tablet 15 mg PO 1999 Qty: 0 0RF nicotine 7 mg/24 hr Patch 24 Hour 7 mg transdermal DAILY Qty: 0 0RF metoprolol tartrate 25 mg Tablet 12.5 mg PO BID Qty: 0 0RF tamsulosin 0.4 mg Capsule 0.4 mg PO DAILY@1730 Qty: 0 0RF Incruse Ellipta 62.5 mcg/actuation Blister With Device 1 puff inhalation DAILY Qty: 0 0RF Continued gabapentin [Neurontin] 300 mg Capsule 300 mg PO DAILY Discontinued aspirin 81 mg Tablet,Chewable 81 mg PO DAILY furosemide 20 mg Tablet 40 mg PO DAILY Referrals / Follow Up: GLADIS WETZEL [Other] Disposition Disposition (needs filled in before D/C Order can be placed): NonSkilled NH/Intermed Care
--- NOTE | 2021-09-24 18:35 | TREXTCAR_ITS ---
Diet Diet Order/Speech Therapy: 09/12/21 12:44 Diet: Regular - General Food consistency:: Regular Type of Dietary Supplement:: Magic Cup w/ L & D Is pt able to select menu?: No Diet Comments: regular CUT INTO BITE SIZES PIECES - 1:1 staff suprvsn-small sips no straws Routine Orders/Code Status Enema Type: Fle[place] Enema Frequency: Daily PRN Suppository Type: Dulcolax 10mg Suppository Frequency: Daily PRN O2 Frequency: PRN (Maintain O2 sat > 89%. He has not required oxygen while in rehab and the pulse ox has been ranging from 95-99%.) Keep PO Greater than or Equal to (%): 90 Routine Lab Work: - (HH, BMP, mag on 09/24/21. ) Code Status: DNRCC-A (with intubation) Wound(s) rt hand: Wound Type: Skin Tear lfa: Wound Type: Abrasion top of rt foot towards ankle: Wound Type: Abrasion rt forearm: Wound Type: Skin Tear Rt upper arm: Wound Type: Skin Tear Therapies Weight Bearing: Full weight bearing Extremity Affected:: Right arm and leg Physical Therapy: Eval and Treat Occupational Therapy: Eval and Treat Speech Therapy: Eval and Treat Problem/Diagnosis (1) Arterial ischemic stroke, MCA, left, acute: Status: Acute Code(s): I63.512 - Cerebral infarction due to unspecified occlusion or stenosis of left middle cerebral artery (2) Petechial hemorrhage: Status: Acute Code(s): R23.3 - Spontaneous ecchymoses Comment: In the area of the stroke following TPA and TNK (for thrombectomy). (3) Acute right hemiparesis: Status: Acute Code(s): G81.91 - Hemiplegia, unspecified affecting right dominant side (4) Dysphagia: Status: Acute Code(s): R13.10 - Dysphagia, unspecified Comment: Moderate to severe oropharyngeal dysphagia at admission to rehab. (5) [place]-neglect of right side: Status: Resolved Code(s): R41.4 - Neurologic neglect syndrome (6) Aphasia: Status: Acute Code(s): R47.01 - Aphasia (7) Right-sided visual neglect: Status: Resolved Code(s): R41.4 - Neurologic neglect syndrome (8) Atrial fibrillation: Status: Acute Code(s): I48.91 - Unspecified atrial fibrillation (9) Chronic anticoagulation: Status: Chronic Code(s): Z79.01 - vermin exterminator (current) use of anticoagulants Comment: On Eliquis (10) Cardiomyopathy: Status: Acute Code(s): I42.9 - Cardiomyopathy, unspecified (11) Severe protein-calorie malnutrition: Status: Acute Code(s): E43 - Unspecified severe protein-calorie malnutrition (12) Elevated PSA, between 10 and less than 20 ng/ml: Status: Acute Code(s): R97.20 - Elevated prostate specific antigen [PSA] (13) Diabetes: Status: Acute Code(s): E11.9 - Type 2 diabetes mellitus without complications (14) Hypertension: Status: Chronic Code(s): I10 - Essential (primary) hypertension (15) Urine retention: Status: Resolved Code(s): R33.9 - Retention of urine, unspecified (16) Hypomagnesemia: Status: Acute Code(s): E83.42 - Hypomagnesemia (17) Catheter-associated urinary tract infection: Status: Resolved Code(s): T83.511A - Infection and inflammatory reaction due to indwelling urethral catheter, initial encounter; N39.0 - Urinary tract infection, site not specified Comment: Pansensitive E. coli - treated with 7 days of Cefadroxil. (18) Chronic renal failure, stage 3a: Status: Acute Code(s): N18.31 - Chronic kidney disease, stage 3a (19) Depression determined by examination: Status: Acute Code(s): F32.A - Depression, unspecified (20) HLD (hyperlipidemia): Status: Acute Code(s): E78.5 - Hyperlipidemia, unspecified Comment: He is on a high intensity statin. (21) S/P CABG (coronary artery bypass graft): Status: Acute Code(s): Z95.1 - Presence of aortocoronary bypass graft (22) Diabetic nephropathy with proteinuria: Status: Acute Code(s): E11.21 - Type 2 diabetes mellitus with diabetic nephropathy (23) Orthostatic hypotension: Status: Resolved Code(s): I95.1 - Orthostatic hypotension (24) COPD (chronic obstructive pulmonary disease): Status: Chronic Code(s): J44.9 - Chronic obstructive pulmonary disease, unspecified (25) CAD (coronary artery disease): Status: Acute Code(s): I25.10 - Atherosclerotic heart disease of [place] coronary artery without angina pectoris (26) GERD (gastroesophageal reflux disease): Status: Chronic Code(s): K21.9 - Gastro-esophageal reflux disease without esophagitis Allergies/Procedures Done in Hospital Allergies heparin Allergy (Verified 08/20/21 03:14) Thrombocytopenia Procedures: - (Modified Barium Swallow on 08/22/2021 and 09/07/2021.) Type of Care/Length of Stay Estimated LOS: Convalescent Care Less Than 30 days Type of Care Needed: Skilled Rehab Potential: Good Prognosis: Good Additional Orders/Day of Discharge H&P will serve as current which was dated: 09/05/21 Day of Discharge: 09/24/21 Dietary and Speech Recommendations Dietitian Recommendations/Changes: Will continue liberal regular diet w/ consistency/texture as per PRINTING BINDERY ASSISTANT. Will continue magic cup w/ lunch and dinner for increased nutrition if consumed. Speech Linguistic Eval Summary: Pt was able to identify own name with y/n answers. He was 50% accurate with y/n questions. He was not able to follow 1 step oral directions. He could not repeat single words. When a familiar item was placed in his hand, he was able to use it without cues cup+, napkin+, comb-. No automatic speech was present. Pt did communicate yes by nodding and opening his mouth to receive another bite of breakfast. He communicated no by shaking his head and pushing away an undesired item. He waved and smiled when others entered the room. Follow Up Care Please Follow Up With: Cardiology Please Follow Up With: urology When: Within the next 1-3 months. Discharge Plan Admission Admit Date/Time: 08/19/21 17:17 Primary Reason for Your Visit: CVA with R hemiparesis, R side neglect, dysphagia and aphasia. Attending Provider: Melissa Mcarthur Primary Care Provider: GLADIS WETZEL Consulting Providers: Zack Bardales Instructions Additional Instructions / Restrictions: Discharge to [facility] 09/24/2021, nonskilled. Discharge Orders/Prescriptions Prescriptions: New acetaminophen [Tylenol] 325 mg Tablet 650 mg PO Q6H PRN PRN (Reason: Pain Score 1-10) Qty: 0 0RF amiodarone 200 mg Tablet 200 mg PO DAILY Qty: 0 0RF aspirin 81 mg Tablet,Delayed Release (Dr/Ec) 81 mg PO BREAKFAST Qty: 0 0RF albuterol sulfate [Ventolin HFA] 90 mcg/actuation Hfa Aerosol Inhaler 2 puff inhalation Q4H PRN PRN (Reason: SOB &/OR WHEEZING) Qty: 0 0RF Eliquis 5 mg Tablet 5 mg PO BID Qty: 0 0RF atorvastatin 80 mg Tablet 80 mg PO QHS Qty: 0 0RF bisacodyl 10 mg Suppository 10 mg [place] .PRN X 1 PRN (Reason: Constipation) Qty: 0 0RF clopidogrel 75 mg Tablet 75 mg PO DAILY Qty: 0 0RF furosemide 20 mg Tablet 20 mg PO Q48H Qty: 0 0RF Jardiance 10 mg Tablet 10 mg PO DAILY Qty: 0 0RF fluticasone propion-salmeterol 232-14 mcg/actuation Aerosol Powdr Breath Activated 1 puff inhalation Q12 Qty: 0 0RF insulin glargine-yfgn 100 unit/mL (3 mL) Insulin Pen 8 unit subcut QHS Qty: 0 0RF insulin lispro [Humalog KwikPen Insulin] 100 unit/mL Insulin Pen 4 unit subcut SUPPER Qty: 1 0RF Rx Instructions: 4 units with supper daily insulin lispro [Humalog KwikPen Insulin] 100 unit/mL Insulin Pen 8 unit subcut BREAKFAST Qty: 0 0RF magnesium hydroxide 400 mg/5 mL Suspension 30 ml PO .PRN X 1 PRN (Reason: Constipation) Qty: 0 0RF lisinopril 2.5 mg Tablet 2.5 mg PO DAILY Qty: 0 0RF Mag 64 64 mg Tablet,Delayed Release (Dr/Ec) 128 mg PO DAILY Qty: 0 0RF menthol-zinc oxide [Calmoseptine] 0.44-20.6 % Ointment 1 applic topical BID@0600,2200 Qty: 0 0RF Protocol: *Topical Application Instructions APPLICATION INSTRUCTIONS: to coccyx sennosides-docusate sodium [Stool Softener-Stimulant Laxat] 8.6-50 mg Tablet 2 tab PO BID Qty: 1 0RF pantoprazole 20 mg Tablet,Delayed Release (Dr/Ec) 20 mg PO DAILY Qty: 0 0RF mirtazapine 15 mg Tablet 15 mg PO 1999 Qty: 0 0RF nicotine 7 mg/24 hr Patch 24 Hour 7 mg transdermal DAILY Qty: 0 0RF metoprolol tartrate 25 mg Tablet 12.5 mg PO BID Qty: 0 0RF tamsulosin 0.4 mg Capsule 0.4 mg PO DAILY@1730 Qty: 0 0RF Incruse Ellipta 62.5 mcg/actuation Blister With Device 1 puff inhalation DAILY Qty: 0 0RF Continued gabapentin [Neurontin] 300 mg Capsule 300 mg PO DAILY Discontinued aspirin 81 mg Tablet,Chewable 81 mg PO DAILY furosemide 20 mg Tablet 40 mg PO DAILY Referrals / Follow Up: GLADIS WETZEL [Other] Disposition Disposition (needs filled in before D/C Order can be placed): NonSkilled NH/Intermed Care (1) Dysphagia Qualifiers: Dysphagia type: oropharyngeal phase Qualified Code(s): R13.12 - Dysphagia, oropharyngeal phase (2) Atrial fibrillation Qualifiers: Atrial fibrillation type: unspecified Qualified Code(s): I48.91 - Unspecified atrial fibrillation (3) Cardiomyopathy Qualifiers: Cardiomyopathy type: unspecified Qualified Code(s): I42.9 - Cardiomyopathy, unspecified (4) Diabetes Qualifiers: Diabetes mellitus type: type 2 Diabetes mellitus jail insulin use: with jail use Diabetes mellitus complication status: with circulatory complication (5) Hypertension Qualifiers: Hypertension type: primary hypertension Qualified Code(s): I10 - Essential (primary) hypertension (6) COPD (chronic obstructive pulmonary disease) Qualifiers: COPD type: unspecified COPD Qualified Code(s): J44.9 - Chronic obstructive pulmonary disease, unspecified (7) CAD (coronary artery disease) Qualifiers: Coronary Disease-Associated Artery/Lesion type: [place] artery [place] vs. transplanted heart: [place] heart Associated angina: without angina Qualified Code(s): I25.10 - Atherosclerotic heart disease of [place] coronary artery without angina pectoris (8) GERD (gastroesophageal reflux disease) Qualifiers: Esophagitis presence: esophagitis presence not specified Qualified Code(s): K21.9 - Gastro-esophageal reflux disease without esophagitis
[2021-09-24] MEDS: Mirtazapine 15 MG Tablet PO (20:21)
[2021-09-24 20:39] VITALS: BP 108/64; PULSE 72; RESP 16; TEMP 36.7; O2SAT 99
[2021-09-24 20:59] VITALS: BP 108/64; PULSE 72
[2021-09-24] MEDS: Atorvastatin Calcium 80 MG Tablet PO (20:59)
[2021-09-24] MEDS: Insulin Glargine-YFGN 100 UNIT/ML Pen 8 UNIT SC (21:13)
[2021-09-24 21:50] LABS: Bedside Glucose 189 mg/dL (74-106)
--- NOTE | 2021-09-25 04:03 | NURSING ---
Reviewed and agree with MID TEACHER documentation and assessment charting.
[2021-09-25] MEDS: Arthritis Pain Compound 60 CLICK TUBE TOPICAL ×2 (05:20→07:34)
[2021-09-25] MEDS: Menthol/Lanolin/Calamine/Znox 113 GM Tube 1 APPLIC TOPICAL (05:20)
[2021-09-25] MEDS: Nystatin Powder 15gm Bottle 1 APPLIC TOPICAL (05:21)
[2021-09-25 06:25] LABS: Bedside Glucose 137 mg/dL (74-106)
[2021-09-25 07:21] VITALS: BP 116/59; PULSE 66; RESP 18; TEMP 36.6; O2SAT 98
[2021-09-25] MEDS: Umeclidinium Bromide Inhaler 1 PUFF INHALATION (07:31)
[2021-09-25] MEDS: Fluticasone/Salmeterol 232-14 Inhaler 1 PUFF INHALATION (07:31)
[2021-09-25] MEDS: Magnesium Chloride 64 MG Delay Rel.Tablet 128 MG PO (07:36)
[2021-09-25] MEDS: Clopidogrel Bisulfate 75 MG Tablet PO (07:36)
[2021-09-25] MEDS: Senna/Docusate Sodium 1 Tablet 2 TABLET PO (07:36)
[2021-09-25] MEDS: Aspirin E.C. 81 MG Tablet PO (07:36)
[2021-09-25 07:37] VITALS: PULSE 66
[2021-09-25] MEDS: Amiodarone 200 MG Tablet PO (07:37)
[2021-09-25] MEDS: APIXABAN 5 MG TABLET PO (07:37)
[2021-09-25] MEDS: Metoprolol Tartrate 25 MG Tablet 12.5 MG PO (07:37)
[2021-09-25] MEDS: Empagliflozin 10 MG Tablet PO (07:37)
[2021-09-25] MEDS: Furosemide 20 MG Tablet PO (07:37)
[2021-09-25] MEDS: Lisinopril 2.5 MG Tablet PO (07:38)
[2021-09-25] MEDS: Pantoprazole Sodium 20 MG Tablet PO (07:38)
[2021-09-25] MEDS: Gabapentin 300 MG Capsule PO (07:40)
[2021-09-25] MEDS: Insulin Lispro 100 UNIT/ML INSULN.PEN 8 UNIT SC (07:44)
--- NOTE | 2021-09-25 10:07 | NURSING ---
discharged to [facility] via family transport. report called to Melisa
[2021-09-25 10:08] VITALS: BP 116/59; PULSE 66; RESP 18; TEMP 36.6; O2SAT 98
== END 2021-09-25 10:10 | disposition intermediate care facility (04) | DRG 56 ==
PROVIDERS: Admitting Provider Internal Medicine; Visit Provider Internal Medicine
DX: I69.351 Hemiplegia and hemiparesis following cerebral infarction affecting right dominant side (principal); E43 Unspecified severe protein-calorie malnutrition; I42.8 Other cardiomyopathies; I13.0 Hypertensive heart and chronic kidney disease with heart failure and stage 1 through stage 4 chronic kidney disease, or unspecified chronic kidney disease; I50.20 Unspecified systolic (congestive) heart failure; E83.39 Other disorders of phosphorus metabolism; I48.91 Unspecified atrial fibrillation; E11.22 Type 2 diabetes mellitus with diabetic chronic kidney disease; T83.511A Infection and inflammatory reaction due to indwelling urethral catheter, initial encounter; J44.9 Chronic obstructive pulmonary disease, unspecified; N18.31 Chronic kidney disease, stage 3a; E78.5 Hyperlipidemia, unspecified; E83.42 Hypomagnesemia; I25.10 Atherosclerotic heart disease of native coronary artery without angina pectoris; I95.1 Orthostatic hypotension; I69.320 Aphasia following cerebral infarction; K21.9 Gastro-esophageal reflux disease without esophagitis; F17.210 Nicotine dependence, cigarettes, uncomplicated; I25.2 Old myocardial infarction; B96.20 Unspecified Escherichia coli [E. coli] as the cause of diseases classified elsewhere; N39.0 Urinary tract infection, site not specified; F32.A Depression, unspecified; R23.3 Spontaneous ecchymoses; Z79.82 Long term (current) use of aspirin; R13.12 Dysphagia, oropharyngeal phase; Z79.84 Long term (current) use of oral hypoglycemic drugs; N40.1 Benign prostatic hyperplasia with lower urinary tract symptoms; Z68.29 Body mass index [BMI] 29.0-29.9, adult; Z23 Encounter for immunization; Z79.899 Other long term (current) drug therapy; R33.8 Other retention of urine
CPT/HCPCS: 0004A; 36415; 70450; 71046; 73030; 74230; 80048; 80053; 81001; 82043; 82436; 82570; 82962; 83735; 83880; 84100; 84153; 84443; 85025; 85027; 85270; 87086; 87088; 87186; 87426; 87811; 91300; 92507; 92526; 92610; 92611; 93005; 96125; 97110; 97112; 97116; 97140; 97162; 97166; 97530; 97535; 97802; 97803; 99251; J7030; J7040; J7050; A4216; G0103; G0463